=== PATIENT | female | born 1945 | race Caucasian/White ===

== ENCOUNTER 2020-12-16 12:15 | Emergency (ER) | payer MEDICARE, OTHER, SELFPAY ==
[2020-12-16] VITALS (12 sets, daily range): BP systolic 142–162; BP diastolic 61–74; PULSE 53–79; RESP 18–22; TEMP 36.7; O2SAT 94–96; BMI 28.3
--- NOTE | 2020-12-16 12:18 | DI.RAD.S_ITS ---
PROCEDURE: XR CHEST 1V INDICATIONS: chest pain TECHNIQUE: One view of the chest was acquired. COMPARISON: None. FINDINGS: Surgical changes and devices: None. Lungs and pleura: Increased pulmonary vascularity is present. No effusions or consolidations. Mediastinum: Mediastinal contours appear normal. Heart size is enlarged. Bones and chest wall: No suspicious bony lesions. Overlying soft tissues appear unremarkable. IMPRESSION: Cardiomegaly with increased vascularity suggestive of edema. Dictated by: Chante Lebron M.D. on 12/16/2020 at 12:44 Approved by: Chante Lebron M.D. on 12/16/2020 at 12:45
[2020-12-16 12:47] LABS: Alanine Aminotransferase 21 IU/L (<35); Albumin 4.1 g/dL (3.5-5.0); Albumin Globulin Ratio 1.1 (1.0-2.8); Alkaline Phosphatase 93 U/L (38-126); Aspartate Aminotransferase 38 IU/L (14-36); BUN Creatinine Ratio 24.3 (6-22); Bilirubin Total 1.1 mg/dL (0.2-1.3); Blood Urea Nitrogen 26 mg/dL (7-17); Calcium 9.2 mg/dL (8.4-10.2); Carbon Dioxide 29 mmol/L (22-32); Chloride 105 mmol/L (98-107); Creatine Kinase 90 U/L (30-135); Estimated Glomerular Filt Rate 49.9 mL/min (>60); Globulin 3.6 g/dL (1.7-4.1); Glucose 89 mg/dL (80-110); HEMOLYSIS 31 (0-50); Lipase 150 U/L (23-300); Magnesium 1.9 mg/dL (1.6-2.3); Potassium 4.6 mmol/L (3.4-5.1); Sodium 137 mmol/L (137-145); Total Protein 7.7 g/dL (6.3-8.2)
[2020-12-16 12:54] LABS: Add Manual Diff / Slide Review NO; Basophils Absolute Auto 0 /uL (0-100); Basophils Percent Auto 0.1 % (0-2); Eosinophils Absolute Auto 500 /uL (0-450); Eosinophils Percent Auto 8.5 % (2-4); Hematocrit 44.2 % (36-46); Hemoglobin 14.5 g/dL (12.0-16.0); Lymphocytes Absolute Auto 1700 /uL (1100-4500); Mean Corpuscular HGB Conc 32.8 % (30-36); Mean Corpuscular Hemoglobin 27.7 PG (26-34); Mean Corpuscular Volume 84.6 fL (80-100); Monocytes Absolute Auto 700 /uL (0-900); Monocytes Percent Auto 11.2 % (3-14); Neutrophils Absolute Auto 3000 /uL (1500-7000); Neutrophils Percent Auto 51.2 % (50-75); Platelet Count 195 X10^3/uL (150-400); Red Blood Cell Count 5.22 X10^6/uL (4.0-5.2); Red Cell Distribution Width 14.8 % (11.6-14.8); White Blood Cell Count 5.9 X10^3/uL (4.5-11.0)
[2020-12-16 13:04] LABS: NT-proBNP (BNP-Adult 18+) 63 pg/mL (<450); Troponin I < 0.012 ng/mL (0.01-0.034)
[2020-12-16 13:11] LABS: Prothrombin Time 11.7 SECONDS (10.1-12.7)
--- NOTE | 2020-12-16 13:13 | ED.CHESTPAIN ---
HPI - Chest Pain <KELSY Bains-BC - Last Filed: 12/16/20 16:55> General Chief Complaint: Chest Pain Stated Complaint: Chest/LT Arm Pain Time Seen by Provider: 12/16/20 12:47 Source: patient Mode of arrival: Family Vehicle Limitations: no limitations History of Present Illness HPI narrative: The patient is a 75-year-old female nonsmoker with history of prediabetes, prehypertension as well as sleep apnea who presents with her with a chief complaint of an episode of chest pain at 1:15 a.m.. She states that it does wake her from rest, it happened right after she put on her CPAP machine. She states that it was 2 to 3/10, substernal, radiating to her left arm. She denies any associated symptoms such as nausea vomiting shortness of breath or palpitations. She states she has had episodes of chest pain for years, which she has never told anybody and never had worked up. She denies any personal history of blood clots, though notes that she has a sister with a history of DVT. She also notes that she has a family history significant for cardiac disease. She does not take any daily medications other than 1 baby aspirin per day as well as some vitamins. She states that she called the on-call for her primary care provider who referred her to the emergency department today. She states she almost did not come in. She does note that her episode of chest pain lasted about 10-15 minutes. Related Data Home Medications Medication Instructions Recorded Confirmed No Known Home Medications 03/03/19 12/16/20 Allergies Allergy/AdvReac Type Severity Reaction Status Date / Time No Known Drug Allergies Allergy Verified 12/16/20 12:22 Review of Systems <MAMIE BainsBC - Last Filed: 12/16/20 16:55> Review of Systems Narrative: GENERAL: Denies chills, fatigue, malaise, fever, sweats. HEENT: Denies sinus pain, ear pain, sore throat, difficulty swallowing, dizziness. RESPIRATORY: Denies dyspnea, cough, wheezing, hemoptysis, sputum. CARDIOVASCULAR see HPI GASTROINTESTINAL: Denies nausea, vomiting, abdominal pain, diarrhea, constipation, melena. : Denies dysuria, frequency, incontinence, hematuria, urinary retention. MUSCULOSKELETAL: denies weakness, joint pain, or bony pain SKIN: Denies rash, skin lesions, or other NEUROLOGIC: Denies weakness, headache, numbness, change in speech, confusion, seizures, incoordination. PSYCHIATRIC: No concerning psychosocial issues. 12 point review of systems is negative except for those stated above Patient History <MARCUS Bains - Last Filed: 12/16/20 16:55> Medical History (Updated 12/16/20 @ 16:46 by MARCUS Bains) Benign essential HTN Chronic GERD Fatigue Hyperlipidemia Macular degeneration Obstructive sleep apnea of adult (~2000) Ocular migraine Osteoarthritis Sinusitis, chronic Spinal stenosis of lumbar region Social History (Updated 11/28/18 @ 15:34 by MARIO Krishna) marital status: details: to Yusuf household members: spouse lives independently: Yes caregiver/support person: No housing: house pets and animals: No Smoking Status: Never smoker Smoking Status: Never smoker alcohol intake frequency: holidays/special occasions only Substance Use Type: does not use Exam <MARCUS Bains - Last Filed: 12/16/20 16:55> Narrative Exam Narrative: GENERAL: This is a well-nourished, well-developed patient, in no acute distress HEAD: Atraumatic. Normocephalic. No temporal or scalp tenderness. EYES: Pupils equal round and reactive. Extraocular motions intact. No scleral icterus. No injection or drainage. ENT: Nose without bleeding, purulent drainage or septal hematoma. Throat without erythema, tonsillar hypertrophy or exudate. Uvula midline. Airway patent. NECK: Trachea midline. No JVD or lymphadenopathy. Supple, nontender, no meningeal signs. CARDIOVASCULAR: Regular rate and rhythm RESPIRATORY: Clear to auscultation. Breath sounds equal bilaterally. No wheezes, rales, or rhonchi. No cough. No increased respiratory effort. No accessory muscle use. GASTROINTESTINAL: Abdomen soft, non-tender, nondistended. No hepato-splenomegaly, or palpable masses. No guarding. EXTREMITIES: No clubbing, cyanosis, or edema. No joint tenderness, effusion, or edema noted. BACK: Nontender without deformity or crepitance. No flank tenderness. NEURO: AOx3. SKIN: No rash or erythema on visible skin Initial Vital Signs Initial Vital Signs: Vital Signs Temperature 98.1 F 12/16/20 12:19 Pulse Rate 60 12/16/20 12:19 Respiratory Rate 18 12/16/20 12:19 Blood Pressure 142/69 H 12/16/20 12:19 Pulse Oximetry 95 12/16/20 12:19 <Zayra Dominguez DO - Last Filed: 12/16/20 18:52> Initial Vital Signs Initial Vital Signs: Vital Signs Temperature 98.1 F 12/16/20 12:19 Pulse Rate 60 12/16/20 12:19 Respiratory Rate 18 12/16/20 12:19 Blood Pressure 142/69 H 12/16/20 12:19 Pulse Oximetry 95 12/16/20 12:19 Scores <MARCUS Bains - Last Filed: 12/16/20 16:55> GCS [place] coma scale eye opening: Spontaneous Isaac coma scale verbal response: Orientated Isaac coma scale motor response: Obey commands [place] coma scale total score: 15 Course <MARCUS Bains - Last Filed: 12/16/20 16:55> Orders Ordered: ED Orders 12/16/20 12:18 XR chest 1V Stat EKG-12 Lead Stat 12/16/20 12:29 Complete Blood Count AUTO DIFF Stat Comprehensive Metabolic Panel Stat D Dimer Stat Lipase Stat MAG [Magnesium] Stat NT-proBNP (BNP-Adult 18+) Stat Partial Thromboplastin Time Stat Prothrombin Time INR Stat Troponin & CK Cardiac Panel Stat 12/16/20 14:35 Troponin & CK Cardiac Panel Stat Discontinued Medications Aspirin (Aspirin 81 Mg Chew Tab) 324 mg PO NOW ONE Stop: 12/16/20 13:13 Last Admin: 12/16/20 13:44 Dose: 324 mg Documented by: HAFSA Vital Signs Vital signs: Vital Signs - 8 hr 12/16/20 12:19 12/16/20 12:24 12/16/20 12:36 Temperature 98.1 F 98.1 F Pulse Rate 60 60 55 L Respiratory Rate 18 18 19 Blood Pressure 142/69 H 142/65 H Pulse Oximetry 95 95 96 12/16/20 13:00 12/16/20 13:30 12/16/20 13:59 Temperature Pulse Rate 53 L 56 L 67 Respiratory Rate 20 20 22 Blood Pressure 142/61 H 146/65 H 155/74 H Pulse Oximetry 96 96 96 12/16/20 14:00 12/16/20 14:30 12/16/20 15:00 Temperature Pulse Rate 71 58 L 56 L Respiratory Rate 22 20 19 Blood Pressure 162/73 H 142/67 H 143/65 H Pulse Oximetry 96 96 96 12/16/20 15:30 12/16/20 16:00 12/16/20 16:30 Temperature Pulse Rate 79 58 L 64 Respiratory Rate 20 21 18 Blood Pressure 142/67 H 148/66 H 143/67 H Pulse Oximetry 94 95 94 <Zayra Dominguez, - Last Filed: 12/16/20 18:52> Orders Ordered: ED Orders 12/16/20 12:18 XR chest 1V Stat EKG-12 Lead Stat 12/16/20 12:29 Complete Blood Count AUTO DIFF Stat Comprehensive Metabolic Panel Stat D Dimer Stat Lipase Stat MAG [Magnesium] Stat NT-proBNP (BNP-Adult 18+) Stat Partial Thromboplastin Time Stat Prothrombin Time INR Stat Troponin & CK Cardiac Panel Stat 12/16/20 14:35 Troponin & CK Cardiac Panel Stat Discontinued Medications Aspirin (Aspirin 81 Mg Chew Tab) 324 mg PO NOW ONE Stop: 12/16/20 13:13 Last Admin: 12/16/20 13:44 Dose: 324 mg Documented by: HAFSA Vital Signs Vital signs: Vital Signs - 8 hr 12/16/20 12:19 12/16/20 12:24 12/16/20 12:36 Temperature 98.1 F 98.1 F Pulse Rate 60 60 55 L Respiratory Rate 18 18 19 Blood Pressure 142/69 H 142/65 H Pulse Oximetry 95 95 96 12/16/20 13:00 12/16/20 13:30 12/16/20 13:59 Temperature Pulse Rate 53 L 56 L 67 Respiratory Rate 20 20 22 Blood Pressure 142/61 H 146/65 H 155/74 H Pulse Oximetry 96 96 96 12/16/20 14:00 12/16/20 14:30 12/16/20 15:00 Temperature Pulse Rate 71 58 L 56 L Respiratory Rate 22 20 19 Blood Pressure 162/73 H 142/67 H 143/65 H Pulse Oximetry 96 96 96 12/16/20 15:30 12/16/20 16:00 12/16/20 16:30 Temperature Pulse Rate 79 58 L 64 Respiratory Rate 20 21 18 Blood Pressure 142/67 H 148/66 H 143/67 H Pulse Oximetry 94 95 94 MDM - Chest Pain <Zayra Bright, CORPORATE LEGAL MANAGER- - Last Filed: 12/16/20 16:55> Lab Data Attestation: I reviewed the patient's lab results. Result diagrams: 12/16/20 12:29 12/16/20 12:29 Labs: Lab Results 12/16/20 12/16/20 12/16/20 Range/Units 12:29 12:29 12:29 WBC 5.9 (4.5-11.0) X10^3/uL RBC 5.22 H (4.0-5.2) X10^6/uL Hgb 14.5 (12.0-16.0) g/dL Hct 44.2 (36-46) % MCV 84.6 (80-100) fL MCH 27.7 (26-34) PG MCHC 32.8 (30-36) % RDW 14.8 (11.6-14.8) % Plt Count 195 (150-400) X10^3/uL Neut % (Auto) 51.2 (50-75) % Lymph % (Auto) 29.0 (25-40) % [place] % (Auto) 11.2 (3-14) % Eos % (Auto) 8.5 H (2-4) % Baso % (Auto) 0.1 (0-2) % Neut # (Auto) 3000 (9900-4486) /uL Lymph # (Auto) 1700 (6645-8518) /uL [place] # (Auto) 700 (0-900) /uL Eos # (Auto) 500 H (0-450) /uL Baso # (Auto) 0 (0-100) /uL PT 11.7 (10.1-12.7) SECONDS INR 1.0 (0.9-1.3) APTT 35 (26.4-36.2) SECONDS D-Dimer (<230) ng/mL Sodium 137 (137-145) mmol/L Potassium 4.6 (3.4-5.1) mmol/L Chloride 105 (98-107) mmol/L Carbon Dioxide 29 (22-32) mmol/L BUN 26 H (7-17) mg/dL Creatinine 1.07 H (0.52-1.04) mg/dL Estimated GFR 49.9 L (>60) mL/min BUN/Creatinine Ratio 24.3 H (6-22) Glucose 89 (80-110) mg/dL Calcium 9.2 (8.4-10.2) mg/dL Magnesium 1.9 (1.6-2.3) mg/dL Total Bilirubin 1.1 (0.2-1.3) mg/dL AST 38 H (14-36) IU/L ALT 21 (<35) IU/L Alkaline Phosphatase 93 (38-126) U/L Total Creatine Kinase 90 (30-135) U/L CK-MB (CK-2) TNP CK-MB (CK-2) Rel Index TNP Troponin I < 0.012 (0.01-0.034) ng/mL NT-Pro-B Natriuret Pep 63 (<450) pg/mL Total Protein 7.7 (6.3-8.2) g/dL Albumin 4.1 (3.5-5.0) g/dL Globulin 3.6 (1.7-4.1) g/dL Albumin/Globulin Ratio 1.1 (1.0-2.8) Lipase 150 (23-300) U/L 12/16/20 12/16/20 Range/Units 12:29 14:35 WBC (4.5-11.0) X10^3/uL RBC (4.0-5.2) X10^6/uL Hgb (12.0-16.0) g/dL Hct (36-46) % MCV (80-100) fL MCH (26-34) PG MCHC (30-36) % RDW (11.6-14.8) % Plt Count (150-400) X10^3/uL Neut % (Auto) (50-75) % Lymph % (Auto) (25-40) % [place] % (Auto) (3-14) % Eos % (Auto) (2-4) % Baso % (Auto) (0-2) % Neut # (Auto) (7900-4950) /uL Lymph # (Auto) (2694-6089) /uL [place] # (Auto) (0-900) /uL Eos # (Auto) (0-450) /uL Baso # (Auto) (0-100) /uL PT (10.1-12.7) SECONDS INR (0.9-1.3) APTT (26.4-36.2) SECONDS D-Dimer 329 H (<230) ng/mL Sodium (137-145) mmol/L Potassium (3.4-5.1) mmol/L Chloride (98-107) mmol/L Carbon Dioxide (22-32) mmol/L BUN (7-17) mg/dL Creatinine (0.52-1.04) mg/dL Estimated GFR (>60) mL/min BUN/Creatinine Ratio (6-22) Glucose (80-110) mg/dL Calcium (8.4-10.2) mg/dL Magnesium (1.6-2.3) mg/dL Total Bilirubin (0.2-1.3) mg/dL AST (14-36) IU/L ALT (<35) IU/L Alkaline Phosphatase (38-126) U/L Total Creatine Kinase 90 (30-135) U/L CK-MB (CK-2) TNP CK-MB (CK-2) Rel Index TNP Troponin I < 0.012 (0.01-0.034) ng/mL NT-Pro-B Natriuret Pep (<450) pg/mL Total Protein (6.3-8.2) g/dL Albumin (3.5-5.0) g/dL Globulin (1.7-4.1) g/dL Albumin/Globulin Ratio (1.0-2.8) Lipase (23-300) U/L Imaging Data Chest x-ray: Radiologist's Impression: [address] [place] [id number] ReportSigned Patient: Lanette Minaya#: [id number]: [id number]:[id number]/Sex: 75 / FDate of Service: 12/16/20Loc: EDAccession Number: [id number] Procedure: XR chest 1V Ordering Provider: Zayra Dominguez D.O. PROCEDURE: XR CHEST 1V INDICATIONS: chest pain TECHNIQUE: One view of the chest was acquired. COMPARISON: None. FINDINGS: Surgical changes and devices: None. Lungs and pleura: Increased pulmonary vascularity is present. No effusions or consolidations. Mediastinum: Mediastinal contours appear normal. Heart size is enlarged. Bones and chest wall: No suspicious bony lesions. Overlying soft tissues appear unremarkable. IMPRESSION: Cardiomegaly with increased vascularity suggestive of edema. Dictated by: Chante Lebron M.D. on 12/16/2020 at 12:44 Approved by: Chante Lebron M.D. on 12/16/2020 at 12:45 ECG Data Attestation: I personally reviewed and interpreted this ECG as follows: Interpretation: Sinus rhythm. Ventricular rate 60. P.r. interval 182. QRS 90. viewed by Dr Dominguez MDM Narrative Medical decision making narrative: The patient is a 75-year-old female who presents 12 hours after an episode of chest pain at 1:00 a.m.. She had substernal chest pain radiating to her left arm for approximately 10-15 minutes. She has had no pain or complaints throughout her emergency department stay. EKG has no acute findings, initial troponin is negative, repeat 2 hour troponin is also negative. D-dimer is negative when corrected for age, BNP within normal limits, chest x-ray is no acute findings. At this point acute cardiac event, pulmonary embolism and acute etiology is ruled out. I spoke with Dr. Yang, on-call for the patient's primary care provider who states that she can follow-up with her primary care provider for a treadmill stress test on Friday. Offered to discussed the possibility of transfer for inpatient stress, but Dr Avelar states okay to follow up with primary care provider. Additionally reassuring that the patient does not take any daily medications, and denies any history of active risk factors other than family history. Discussed at length 3 come back to the emergency department for any acute concerns, follow-up with primary care provider on Friday. Patient has been have no questions or concerns upon discharge states understanding of return precautions as well as follow-up care. <Zayra Dominguez, DO - Last Filed: 12/16/20 18:52> Lab Data Labs: Lab Results 12/16/20 12/16/20 12/16/20 Range/Units 12:29 12:29 12:29 WBC 5.9 (4.5-11.0) X10^3/uL RBC 5.22 H (4.0-5.2) X10^6/uL Hgb 14.5 (12.0-16.0) g/dL Hct 44.2 (36-46) % MCV 84.6 (80-100) fL MCH 27.7 (26-34) PG MCHC 32.8 (30-36) % RDW 14.8 (11.6-14.8) % Plt Count 195 (150-400) X10^3/uL Neut % (Auto) 51.2 (50-75) % Lymph % (Auto) 29.0 (25-40) % [place] % (Auto) 11.2 (3-14) % Eos % (Auto) 8.5 H (2-4) % Baso % (Auto) 0.1 (0-2) % Neut # (Auto) 3000 (4316-6898) /uL Lymph # (Auto) 1700 (8701-3112) /uL [place] # (Auto) 700 (0-900) /uL Eos # (Auto) 500 H (0-450) /uL Baso # (Auto) 0 (0-100) /uL PT 11.7 (10.1-12.7) SECONDS INR 1.0 (0.9-1.3) APTT 35 (26.4-36.2) SECONDS D-Dimer (<230) ng/mL Sodium 137 (137-145) mmol/L Potassium 4.6 (3.4-5.1) mmol/L Chloride 105 (98-107) mmol/L Carbon Dioxide 29 (22-32) mmol/L BUN 26 H (7-17) mg/dL Creatinine 1.07 H (0.52-1.04) mg/dL Estimated GFR 49.9 L (>60) mL/min BUN/Creatinine Ratio 24.3 H (6-22) Glucose 89 (80-110) mg/dL Calcium 9.2 (8.4-10.2) mg/dL Magnesium 1.9 (1.6-2.3) mg/dL Total Bilirubin 1.1 (0.2-1.3) mg/dL AST 38 H (14-36) IU/L ALT 21 (<35) IU/L Alkaline Phosphatase 93 (38-126) U/L Total Creatine Kinase 90 (30-135) U/L CK-MB (CK-2) TNP CK-MB (CK-2) Rel Index TNP Troponin I < 0.012 (0.01-0.034) ng/mL NT-Pro-B Natriuret Pep 63 (<450) pg/mL Total Protein 7.7 (6.3-8.2) g/dL Albumin 4.1 (3.5-5.0) g/dL Globulin 3.6 (1.7-4.1) g/dL Albumin/Globulin Ratio 1.1 (1.0-2.8) Lipase 150 (23-300) U/L 12/16/20 12/16/20 Range/Units 12:29 14:35 WBC (4.5-11.0) X10^3/uL RBC (4.0-5.2) X10^6/uL Hgb (12.0-16.0) g/dL Hct (36-46) % MCV (80-100) fL MCH (26-34) PG MCHC (30-36) % RDW (11.6-14.8) % Plt Count (150-400) X10^3/uL Neut % (Auto) (50-75) % Lymph % (Auto) (25-40) % [place] % (Auto) (3-14) % Eos % (Auto) (2-4) % Baso % (Auto) (0-2) % Neut # (Auto) (4158-4578) /uL Lymph # (Auto) (2319-8373) /uL [place] # (Auto) (0-900) /uL Eos # (Auto) (0-450) /uL Baso # (Auto) (0-100) /uL PT (10.1-12.7) SECONDS INR (0.9-1.3) APTT (26.4-36.2) SECONDS D-Dimer 329 H (<230) ng/mL Sodium (137-145) mmol/L Potassium (3.4-5.1) mmol/L Chloride (98-107) mmol/L Carbon Dioxide (22-32) mmol/L BUN (7-17) mg/dL Creatinine (0.52-1.04) mg/dL Estimated GFR (>60) mL/min BUN/Creatinine Ratio (6-22) Glucose (80-110) mg/dL Calcium (8.4-10.2) mg/dL Magnesium (1.6-2.3) mg/dL Total Bilirubin (0.2-1.3) mg/dL AST (14-36) IU/L ALT (<35) IU/L Alkaline Phosphatase (38-126) U/L Total Creatine Kinase 90 (30-135) U/L CK-MB (CK-2) TNP CK-MB (CK-2) Rel Index TNP Troponin I < 0.012 (0.01-0.034) ng/mL NT-Pro-B Natriuret Pep (<450) pg/mL Total Protein (6.3-8.2) g/dL Albumin (3.5-5.0) g/dL Globulin (1.7-4.1) g/dL Albumin/Globulin Ratio (1.0-2.8) Lipase (23-300) U/L ECG Data Attestation: I personally reviewed and interpreted this ECG as follows: Prior ECG tracings: not available for review Interpretation: Sinus rhythm, rate of 60 IA 182 QRS of 90 and QTC 414. No acute ST elevation appreciated. No depression appreciated. No prior for comparison. Discharge Plan Departure Patient Disposition: Home Clinical Impression: Chest pain Qualifiers: Chest pain type: unspecified Qualified Code(s): R07.9 - Chest pain, unspecified Instructions: DI for Atypical Chest Pain, DI for Chest Pain Activity Restrictions/Additional Instructions: Thank you for trusting us with your care today. As discussed, please follow-up with primary care provider on Friday. I spoke with Dr. Avelar, on-call for your primary care provider. Please come back to the emergency department for any acute concerns. This includes any concern of heart attack, chest pain shortness of breath, concern of stroke etcetera Prescriptions: No Action No Known Home Medications RF: 0 Referrals: Antonio Dueñas MD [Primary Care Provider] - <Zayra Dominguez DO - Last Filed: 12/16/20 18:52> Cosign ED Attending Costrishature Attestation: I was immediately available in the department for consultation. Documentation has been reviewed.
[2020-12-16 13:14] LABS: PTT Partial Thromboplastin Tim 35 SECONDS (26.4-36.2)
[2020-12-16 13:29] LABS: D Dimer 329 ng/mL (<230)
[2020-12-16] MEDS: ASPIRIN 81 MG CHEW TAB 324 MG PO (13:44)
[2020-12-16 15:00] LABS: Creatine Kinase 90 U/L (30-135)
[2020-12-16 15:13] LABS: Troponin I < 0.012 ng/mL (0.01-0.034)
== END 2020-12-16 16:57 | disposition home or self-care (01) ==
PROVIDERS: Emergency Medicine; Emergency Provider Nurse Practitioner Family; PCP Family Medicine; Referring Provider Family Medicine
DX: R07.9 Chest pain, unspecified (principal)
CPT/HCPCS: 36415; 71045; 80053; 82550; 83690; 83735; 83880; 84484; 85025; 85379; 85610; 85730; 93005; 99284

== ENCOUNTER → 2021-06-26 15:31 | Outpatient (CLI) | payer MEDICARE, OTHER, SELFPAY ==
--- NOTE | 2021-06-26 | DI.RAD.S_ITS ---
PROCEDURE: XR CHEST 2V INDICATIONS: Cough TECHNIQUE: 2 views of the chest were acquired. COMPARISON: [facility], CR, XR CHEST 1V, 12/16/2020, 12:33. FINDINGS: Surgical changes and devices: None. Lungs and pleura: Lungs are clear. No pleural effusions or pneumothorax. Mediastinum: Mediastinal contours are normal. Heart size is normal. Bones and chest wall: No suspicious bony abnormalities. Soft tissues appear unremarkable. IMPRESSION: No acute cardiopulmonary abnormality. Dictated by: Mike Mustafa M.D. on 06/26/2021 at 16:12 Approved by: Mike Mustafa M.D. on 06/26/2021 at 16:14
== END ==
PROVIDERS: PCP Family Medicine; Referring Provider Family Medicine; Visit Provider Family Medicine
DX: R05 Cough (principal)
CPT/HCPCS: 71046

== ENCOUNTER → 2021-11-29 09:02 | Outpatient (CLI) | payer MEDICARE, OTHER, SELFPAY ==
--- NOTE | 2021-11-29 | DI.US.S_ITS ---
PROCEDURE: US CAROTID DOPPLER BI INDICATIONS: MILD COGNITIVE IMPAIRMENT TECHNIQUE: Color and pulse Doppler interrogation was performed of both carotid systems, with image documentation and velocity measurements. COMPARISON: None. FINDINGS: Stenosis calculations are based on SRU (Society of Radiologists in Ultrasound) criteria. Right side: Brachial blood pressure: 134/71 mm Hg. Common carotid artery peak systolic velocity: 91 cm/sec. Internal carotid artery peak systolic velocity: 90 cm/sec. Internal carotid artery end diastolic velocity: 33 cm/sec. External carotid artery peak systolic velocity: 132 cm/sec. ICA/CCA peak systolic ratio: 1.0. Chavez scale imaging description: Calcified plaque Percent internal carotid artery stenosis: Less than 50%. Vertebral artery: Flow direction is antegrade. Left side: Brachial blood pressure: 142/73 mm Hg. Common carotid artery peak systolic velocity: 136 cm/sec. Internal carotid artery peak systolic velocity: 153 cm/sec. Internal carotid artery end diastolic velocity: 42 cm/sec. External carotid artery peak systolic velocity: 181 cm/sec. ICA/CCA peak systolic ratio: 1.1. Chavez scale imaging description: Calcified plaque Percent internal carotid artery stenosis: 50-69%. Vertebral artery: Flow direction is antegrade. IMPRESSION: 1. Moderate, 50-69% stenosis of the origin left internal carotid artery. 2. Mild, less than 50% stenosis of the origin of the right internal carotid artery. Dictated by: Coyn Barcenas MD, PhD on 11/29/2021 at 10:23 Approved by: Cony Barcenas MD, PhD on 11/29/2021 at 10:27
--- NOTE | 2021-11-29 09:34 | DI.CT.S_ITS ---
PROCEDURE: CT HEAD/BRAIN WO CON INDICATIONS: Mild cognitive impairment, so stated TECHNIQUE: Noncontrast 4.5 mm thick angled axial sections acquired from the foramen magnum to the vertex, with coronal and sagittal reformats. For radiation dose reduction, the following was used: automated exposure control, adjustment of mA and/or kV according to patient size. COMPARISON: None. FINDINGS: Image quality: Excellent. CSF spaces: Basal cisterns are patent. No extra-axial fluid collections. The ventricles are symmetric in size and shape. Brain: No intracranial bleeds or masses. There is cerebral volume loss for age, with resultant ventricular and sulcal prominence. There are periventricular and deep white matter chronic small vessel ischemic changes. There is intracranial internal carotid artery atherosclerosis. Skull and face: Calvarium and visualized facial bones appear intact, without suspicious lesions. Sinuses: Visualized sinuses and mastoids are clear. IMPRESSION: No acute intracranial disease process. Dictated by: Cony Barcenas MD, PhD on 11/29/2021 at 10:32 Approved by: Cony Barcenas MD, PhD on 11/29/2021 at 10:33
== END ==
PROVIDERS: PCP Family Medicine; Referring Provider Family Medicine; Visit Provider Family Medicine
DX: G31.84 Mild cognitive impairment of uncertain or unknown etiology; I65.23 Occlusion and stenosis of bilateral carotid arteries
CPT/HCPCS: 70450; 93880

== ENCOUNTER 2023-08-31 19:26 | Inpatient (IN) | payer MEDICARE, OTHER, SELFPAY ==
[2023-08-31] VITALS (7 sets, daily range): BP systolic 140–183; BP diastolic 67–78; PULSE 53–63; RESP 16–30; TEMP 36.6; O2SAT 88–93; BMI 27.4
--- NOTE | 2023-08-31 | DI.RAD.S_ITS ---
PROCEDURE: XR PELVIS 1-2V INDICATIONS: Fall, surgeon requesting judet views. TECHNIQUE: 2 view(s) of the pelvis acquired. COMPARISON: [facility], KATELYN, XR HIP W PEL IF DONE LT 2V, 08/31/2023, 19:57. [facility], KATELYN, PELVIS W UNILATERAL HIP RIGHT, 08/10/2008, 15:49. FINDINGS: Bones: Suspected disruption of the trabeculae at the medial aspect the left hip. No dislocations. No suspicious bony lesions. Soft tissues: Visualized bowel gas pattern is normal. No suspicious soft tissue calcifications. IMPRESSION: Suspected nondisplaced fracture at the left hip is less conspicuous. If clinically indicated CT bony pelvis could be considered for further evaluation Dictated by: Mike Mustafa M.D. on 08/31/2023 at 21:24 Approved by: Mike Mustafa M.D. on 08/31/2023 at 21:26
--- NOTE | 2023-08-31 19:37 | DI.RAD.S_ITS ---
PROCEDURE: XR HIP W PEL IF DONE LT 2V INDICATIONS: Pain after fall TECHNIQUE: AP pelvis with lateral view(s) of the left hip(s). COMPARISON: [facility], , PELVIS WITH BILATERAL HIPS, 03/29/2013, 12:28. FINDINGS: Bones: Foreshortening of the left femoral neck with cortical disruption. No dislocations. Pelvic ring appears intact. No suspicious bony lesions. Soft tissues: The visualized bowel gas pattern is normal. No suspicious soft tissue calcifications. IMPRESSION: Nondisplaced left hip fracture. Dictated by: Mike Mustafa M.D. on 08/31/2023 at 20:34 Approved by: Mike Mustafa M.D. on 08/31/2023 at 20:36
--- NOTE | 2023-08-31 19:50 | PC.NURSE ---
pt c/o pain only with movement of the left leg refuses any pain medication
--- NOTE | 2023-08-31 19:55 | DI.RAD.S_ITS ---
PROCEDURE: XR RIBS RT MIN 3V W CXR 1V INDICATIONS: R anterior lower rib pain after fall TECHNIQUE: 2 views of the right ribs were acquired, along with a single view chest. COMPARISON: [facility], , XR CHEST 2V, 06/26/2021, 15:35. FINDINGS: Surgical changes and devices: None. Bones and chest wall: No fractures or dislocations. No suspicious bony lesions. Overlying soft tissues appear unremarkable. Lungs and pleura: No pleural effusions or pneumothorax. Lungs appear clear. Mediastinum: Mediastinal contours appear normal. Heart size is normal. IMPRESSION: No displaced rib fracture or pneumothorax. Dictated by: Mike Mustafa M.D. on 08/31/2023 at 20:36 Approved by: Mike Mustafa M.D. on 08/31/2023 at 20:38
--- NOTE | 2023-08-31 19:55 | ED.GENADULT ---
HPI - General Adult General Chief complaint: Trauma Stated complaint: Hypothermia/Hip pain Time Seen by Provider: 08/31/23 19:37 Source: patient and EMS Mode of arrival: EMS Limitations: no limitations History of Present Illness HPI narrative: Patient is a 77-year-old female who was out hiking. She lost her footing on a wet rock that had some loss. She fell landing on her left hip. She reports no other injuries from the event. Did not hit her head. No upper extremity discomfort. She has not been able to walk since the event. Related Data Home Medications Medication Instructions Recorded Confirmed aspirin 81 mg chewable tablet 81 mg PO DAILY 05/10/21 08/31/23 vit cap PO 05/10/21 05/10/21 C,E,zinc,He-aorep-4-lutein-zeaxanthin 250 mg-2.5 mg-0.5 mg capsule atorvastatin 40 mg tablet 40 mg PO BEDTIME 08/31/23 08/31/23 latanoprost 0.005 % eye drops 1 drp EYE-BOTH BEDTIME 08/31/23 08/31/23 Allergies Allergy/AdvReac Type Severity Reaction Status Date / Time No Known Drug Allergies Allergy Verified 08/31/23 21:40 Review of Systems Constitutional Constitutional: Reports system reviewed and no additional complaints, except as documented Cardiovascular Cardiovascular: Reports system reviewed and no additional complaints, except as documented Respiratory Respiratory: Reports system reviewed and no additional complaints, except as documented Gastrointestinal Gastrointestinal: Reports system reviewed and no additional complaints, except as documented Integumentary/Breasts Skin/Breast: Reports system reviewed and no additional complaints, except as documented Neurologic Neurologic: Reports system reviewed and no additional complaints, except as documented Hematologic/Lymphatic On Anticoagulants: No Patient History Medical History Fatigue Ocular migraine Sinusitis, chronic Macular degeneration Osteoarthritis Benign essential HTN Hyperlipidemia Spinal stenosis of lumbar region Chronic GERD Obstructive sleep apnea of adult (~2000) Social History marital status: details: to Yusuf household members: spouse lives independently: Yes caregiver/support person: No housing: house pets and animals: No Smoking Status: Never smoker Smoking Status: Never smoker alcohol intake frequency: holidays/special occasions only Substance Use Type: does not use Exam Initial Vital Signs Initial Vital Signs: Vital Signs Blood Pressure 183/78 H 08/31/23 19:45 Const General: cooperative, comfortable and No ill appearing HENMT Head: normal to inspection and normocephalic Chest Other: Discomfort to palpation right anterior lower ribs. Resp Effort & Inspection: normal respiratory effort Cardio Rate: regular rate GI Other: No abdominal tenderness. No CVA tenderness. Back/Spine/Pelvis Cervical Spine: No cervical spinal tenderness Skin General: no rashes or lesions noted Neuro General: patient alert, patient awake and moves all extremities Extrem Other: Discomfort with palpation of the left hemipelvis Course Orders Ordered: ED Orders 08/31/23 19:37 XR hip w pel if done LT 2V Stat 08/31/23 19:55 XR ribs RT min 3V w CXR1V Stat 08/31/23 20:35 Consult to Orthopedic Surgery Stat 08/31/23 20:45 Basic Metabolic Panel Stat Complete Blood Count AUTO DIFF Stat Acetaminophen (Acetaminophen 325 Mg Tablet) 650 mg PO Q6H PRN PRN Reason: Fever/Mild Pain (1-3) Bisacodyl (Bisacodyl 10 Mg Supp) 10 mg MT DAILY PRN PRN Reason: Constipation Dextrose/Sodium Chloride (Dextrose 5%-0.9% Ns) 1,000 mls @ 75 mls/hr IV CONT RYAN Naloxone HCl (Naloxone 0.4 Mg/Ml Vial) 0.2 mg IV Q2MIN PRN PRN Reason: Opiate Reversal Ondansetron HCl (Ondansetron 4 Mg Odt) 4 mg PO Q8HR PRN PRN Reason: Nausea And Vomiting Ondansetron HCl (Ondansetron 4 Mg/2 Ml Inj) 4 mg IV Q8HR PRN PRN Reason: Nausea And Vomiting Oxycodone HCl (Oxycodone Ir 10 Mg Tablet) 10 mg PO Q3H PRN PRN Reason: Pain, Severe (7-10) Oxycodone HCl (Oxycodone Ir 5 Mg Tablet) 5 mg PO Q3H PRN PRN Reason: Pain, Moderate (4-6) Discontinued Medications Morphine Sulfate (Morphine 4 Mg/Ml Inj) 4 mg IV NOW ONE Stop: 08/31/23 21:55 Last Admin: 08/31/23 21:57 Dose: 4 mg Documented By: MUSA Ondansetron HCl (Ondansetron 4 Mg/2 Ml Inj) 4 mg IV NOW ONE Stop: 08/31/23 21:55 Last Admin: 08/31/23 21:57 Dose: 4 mg Documented By: MUSA Vital Signs Vital signs: Vital Signs - 8 hr 08/31/23 19:45 08/31/23 19:47 08/31/23 19:50 Temperature 97.9 F Pulse Rate 58 L 57 L Respiratory Rate 30 H 18 Blood Pressure 183/78 H 183/78 H Pulse Oximetry 92 93 Oxygen Delivery Method Room Air 08/31/23 20:29 08/31/23 20:29 08/31/23 20:30 Temperature Pulse Rate 53 L Respiratory Rate 27 H Blood Pressure 140/67 161/72 H Pulse Oximetry 90 L Oxygen Delivery Method 08/31/23 20:30 Temperature Pulse Rate 56 L Respiratory Rate 22 Blood Pressure Pulse Oximetry 91 Oxygen Delivery Method Medical Decision Making Lab Data Lab results reviewed: Yes I reviewed the patient's lab results. 08/31/23 20:45 08/31/23 20:45 Labs: Lab Results 08/31/23 Range/Units 20:45 WBC 11.2 H (4.5-11.0) X10^3/uL RBC 5.24 H (4.0-5.2) X10^6/uL Hgb 14.2 (12.0-16.0) g/dL Hct 43.5 (36-46) % MCV 82.9 (80-100) fL MCH 27.1 (26-34) PG MCHC 32.7 (30-36) % RDW 16.1 H (11.6-14.8) % Plt Count 149 L (150-400) X10^3/uL Neut % (Auto) 88.3 H (50-75) % Lymph % (Auto) 7.1 L (25-40) % [place] % (Auto) 4.2 (3-14) % Eos % (Auto) 0.3 L (2-4) % Baso % (Auto) 0.1 (0-2) % Neut # (Auto) 9900 H (9056-1376) /uL Lymph # (Auto) 800 L (1171-1995) /uL [place] # (Auto) 500 (0-900) /uL Eos # (Auto) 0 (0-450) /uL Baso # (Auto) 0 (0-100) /uL Sodium 138 (137-145) mmol/L Potassium 3.9 (3.4-5.1) mmol/L Chloride 103 (98-107) mmol/L Carbon Dioxide 26 (22-32) mmol/L BUN 26 H (7-17) mg/dL Creatinine 0.86 (0.52-1.04) mg/dL Estimated GFR > 60 (>60) mL/min BUN/Creatinine Ratio 30.2 H (6-22) Glucose 137 H (80-110) mg/dL Calcium 9.4 (8.4-10.2) mg/dL Imaging Data Extremity x-ray #1: Radiologist's Impression: PROCEDURE: XR PELVIS 1-2V INDICATIONS: Fall, surgeon requesting judet views. TECHNIQUE: 2 view(s) of the pelvis acquired. COMPARISON: [facility], XR HIP W PEL IF DONE LT 2V, 08/31/2023, 19:57. [facility], PELVIS W UNILATERAL HIP RIGHT, 08/10/2008, 15:49. FINDINGS: Bones: Suspected disruption of the trabeculae at the medial aspect the left hip. No dislocations. No suspicious bony lesions. Soft tissues: Visualized bowel gas pattern is normal. No suspicious soft tissue calcifications. IMPRESSION: Suspected nondisplaced fracture at the left hip is less conspicuous. If clinically indicated CT bony pelvis could be considered for further evaluation Extremity x-ray #2: Radiologist's Impression: PROCEDURE: XR HIP W PEL IF DONE LT 2V INDICATIONS: Pain after fall TECHNIQUE: AP pelvis with lateral view(s) of the left hip(s). COMPARISON: [facility], , PELVIS WITH BILATERAL HIPS, 03/29/2013, 12:28. FINDINGS: Bones: Foreshortening of the left femoral neck with cortical disruption. No dislocations. Pelvic ring appears intact. No suspicious bony lesions. Soft tissues: The visualized bowel gas pattern is normal. No suspicious soft tissue calcifications. IMPRESSION: Nondisplaced left hip fracture. rib x-ray: Radiologist's Impression: PROCEDURE: XR RIBS RT MIN 3V W CXR 1V INDICATIONS: R anterior lower rib pain after fall TECHNIQUE: 2 views of the right ribs were acquired, along with a single view chest. COMPARISON: [facility], XR CHEST 2V, 06/26/2021, 15:35. FINDINGS: Surgical changes and devices: None. Bones and chest wall: No fractures or dislocations. No suspicious bony lesions. Overlying soft tissues appear unremarkable. Lungs and pleura: No pleural effusions or pneumothorax. Lungs appear clear. Mediastinum: Mediastinal contours appear normal. Heart size is normal. IMPRESSION: No displaced rib fracture or pneumothorax. MDM Narrative Medical decision making narrative: This was a mechanical fall. Has a left femoral neck fracture. Had some discomfort to the right anterior lower ribs but she states she did not land on this side. There were no rib fractures noted on x-ray. No shortness of breath. I did discuss the case with Dr. Walker orthopedist on-call who will evaluate the patient after admission. I then discussed the case with Dr. Kohler hospitalist on-call who will admit for further evaluation and treatment. Discussed the injury with the patient of the need for admission. She expressed understanding and agreement with plan. Discharge Plan Departure Patient Disposition: Admitted As Inpatient Clinical Impression: Closed fracture of neck of left femur Admit Date/Time: 08/31/23 21:03 Admit Provider: Александр Hurd
[2023-08-31 21:05] LABS: Add Manual Diff / Slide Review NO; Basophils Absolute Auto 0 /uL (0-100); Basophils Percent Auto 0.1 % (0-2); Eosinophils Absolute Auto 0 /uL (0-450); Eosinophils Percent Auto 0.3 % (2-4); Hematocrit 43.5 % (36-46); Hemoglobin 14.2 g/dL (12.0-16.0); Lymphocytes Absolute Auto 800 /uL (1100-4500); Lymphocytes Percent Auto 7.1 % (25-40); Mean Corpuscular HGB Conc 32.7 % (30-36); Mean Corpuscular Hemoglobin 27.1 PG (26-34); Mean Corpuscular Volume 82.9 fL (80-100); Monocytes Absolute Auto 500 /uL (0-900); Monocytes Percent Auto 4.2 % (3-14); Neutrophils Absolute Auto 9900 /uL (1500-7000); Neutrophils Percent Auto 88.3 % (50-75); Platelet Count 149 X10^3/uL (150-400); Red Blood Cell Count 5.24 X10^6/uL (4.0-5.2); Red Cell Distribution Width 16.1 % (11.6-14.8); White Blood Cell Count 11.2 X10^3/uL (4.5-11.0)
[2023-08-31 21:07] LABS: BUN Creatinine Ratio 30.2 (6-22); Blood Urea Nitrogen 26 mg/dL (7-17); Calcium 9.4 mg/dL (8.4-10.2); Carbon Dioxide 26 mmol/L (22-32); Chloride 103 mmol/L (98-107); Estimated Glomerular Filt Rate > 60 mL/min (>60); Glucose 137 mg/dL (80-110); HEMOLYSIS 20 (0-50); Potassium 3.9 mmol/L (3.4-5.1); Sodium 138 mmol/L (137-145)
[2023-08-31] MEDS: ONDANSETRON 4 MG/2 ML INJ IV (21:57)
[2023-08-31] MEDS: MORPHINE 4 MG/ML INJ IV (21:57)
[2023-08-31] MEDS: DEXTROSE 5%-0.9% NS 1,000 ML 75 ML IV (22:45)
[2023-09-01] VITALS (17 sets, daily range): BP systolic 104–160; BP diastolic 47–76; PULSE 50–81; RESP 14–22; TEMP 35.8–37.4; O2SAT 88–98; BMI 27.4
--- NOTE | 2023-09-01 | DI.RAD.S_ITS ---
PROCEDURE: XR HIP W PEL IF DONE LT 2V INDICATIONS: LEFT HIP HEMIARTHROPLASTY TECHNIQUE: 14 intraoperative views of the hip were acquired. COMPARISON: [facility], [place], XR HIP W PEL IF DONE LT 2V, 08/31/2023, 19:57. FINDINGS: Left hip arthroplasty projects in the expected location. IMPRESSION: Left hip arthroplasty projects in the expected location. Intraoperative guidance provided. Dictated by: Mike Mustafa M.D. on 09/01/2023 at 20:55 Approved by: Mike Mustafa M.D. on 09/01/2023 at 20:56
--- NOTE | 2023-09-01 | DI.RAD.S_ITS ---
PROCEDURE: XR HIP W PEL IF DONE LT 2V INDICATIONS: POST OP TECHNIQUE: AP pelvis and lateral view of the left hip acquired. COMPARISON: [facility], [place], XR HIP W PEL IF DONE LT 2V, 09/01/2023, 19:00. [facility], CR, XR HIP W PEL IF DONE LT 2V, 08/31/2023, 19:57. FINDINGS: Bones: Patient is status post left hip arthroplasty, with hardware components in expected positions. The hip joint appears congruent. The visualized bony structures appear intact. Soft tissues: Overlying postoperative changes are noted. No suspicious soft tissue densities. IMPRESSION: Expected post-operative appearance of a hip arthroplasty. Dictated by: Mike Mustafa M.D. on 09/01/2023 at 22:31 Approved by: Mike Mustafa M.D. on 09/01/2023 at 22:32
--- NOTE | 2023-09-01 06:32 | PC.NURSE ---
This RN requested electronic transaction implementer Dr. Vasquez to place orders for patient's home medications @[id number]. Dr. Vasquez stated the only medication she will get from that list is eyedrops. Rest is nonessential when NPO prior to surgery. This RN explained pt takes 81 mg aspirin daily, which can be started for 09/02 and 40mg atorvastatin at bedtime, which can be started for tonight 09/[address] vasquez stated that's for the day doc. Updated curly Glover RN that these medications will still need to be ordered for patient.
--- NOTE | 2023-09-01 06:33 | PM.HP.1 ---
History of Present Illness History of Present Illness Date Patient Seen: 08/31/23 Chief complaint: Hypothermia/Hip pain Narrative: 77 y/o physically active, sustained accidental GLF on a trail and fractured left femoral neck. She slipped on a stone. ED attending consulted orthopedic surgeon Dr Walker who will likely operate on . Admitted to medicine, npo. Complains on Lt hip pain, exacerbated with movement. [facility] Medical History (Updated 09/01/23 @ 06:45 by Александр Kohler MD) Fatigue Ocular migraine Sinusitis, chronic Macular degeneration Osteoarthritis Benign essential HTN Hyperlipidemia Spinal stenosis of lumbar region Chronic GERD Obstructive sleep apnea of adult (~2000) Social History marital status: details: to Yusuf household members: spouse lives independently: Yes caregiver/support person: No housing: house pets and animals: No Smoking Status: Never smoker Meds Home Medications and Allergies Home Medications Medication Instructions Recorded Confirmed Type aspirin 81 mg chewable tablet 81 mg PO DAILY 05/10/21 08/31/23 History vit cap PO 05/10/21 05/10/21 History C,E,zinc,Lt-uorcb-2-lutein-zeaxanthin 250 mg-2.5 mg-0.5 mg capsule atorvastatin 40 mg tablet 40 mg PO BEDTIME 08/31/23 08/31/23 History latanoprost 0.005 % eye drops 1 drp EYE-BOTH BEDTIME 08/31/23 08/31/23 History Allergies Allergy/AdvReac Type Severity Reaction Status Date / Time No Known Drug Allergies Allergy Verified 08/31/23 21:40 Review of Systems Constitutional Comments: w/o fever, chills, sweats Eyes Comments: decreased visual acuity chronically Cardiovascular Comments: w/o palpitations or chest pain She had some MSK chest wall pain Respiratory Comments: w/o cough or dyspnea Gastrointestinal Comments: w/o complaints Genitourinary Comments: w/o dysuria Musculoskeletal Comments: hip pain Exam Vital Signs (past 8 hours): - 09/01/23 00:00 09/01/23 04:36 Temperature 98.8 F 97.8 F Pulse Rate 65 68 Respiratory Rate 16 16 Blood Pressure 155/63 H 148/47 H Pulse Oximetry 98 94 Oxygen Delivery Method Nasal Cannula Oxygen Flow Rate 2 Const Other: laying in bed in no distress HENMT Other: normocephalic Eyes Other: reactive pupils, eomi Neck Other: supple Chest Other: normal respiratory effort Cardio Other: RRR GI Other: not distended Neuro Other: w/o deficits Psych Other: lucid, decisional Objective Labs 08/31/23 20:45 08/31/23 20:45 Labs: Laboratory Results - last 24 hr 08/31/23 20:45 WBC 11.2 H RBC 5.24 H Hgb 14.2 Hct 43.5 MCV 82.9 MCH 27.1 MCHC 32.7 RDW 16.1 H Plt Count 149 L Neut % (Auto) 88.3 H Lymph % (Auto) 7.1 L [place] % (Auto) 4.2 Eos % (Auto) 0.3 L Baso % (Auto) 0.1 Neut # (Auto) 9900 H Lymph # (Auto) 800 L [place] # (Auto) 500 Eos # (Auto) 0 Baso # (Auto) 0 Sodium 138 Potassium 3.9 Chloride 103 Carbon Dioxide 26 BUN 26 H Creatinine 0.86 Estimated GFR > 60 BUN/Creatinine Ratio 30.2 H Glucose 137 H Calcium 9.4 Assessment & Plan Assessment and plan (1) Closed fracture of neck of left femur: Status: Acute Plan: - NPO after midnight for likely OR with orthopedic surgery (2) Obstructive sleep apnea of adult: Status: Chronic Plan: CPAP (3) Benign essential HTN: Status: Chronic Plan: On no medications at home (4) Hyperlipidemia: Status: Acute Plan: Lipitor at home Can resume with resumed PO (5) Spinal stenosis of lumbar region: Status: Acute Plan: in the history - w/o claudications (6) Chronic GERD: Status: Acute Plan: on no medications - PPI iv x 1 for GI prophylaxis
[2023-09-01 06:35] LABS: Add Manual Diff / Slide Review NO; Basophils Absolute Auto 0 /uL (0-100); Basophils Percent Auto 0.6 % (0-2); Eosinophils Absolute Auto 0 /uL (0-450); Eosinophils Percent Auto 0.4 % (2-4); Hematocrit 39.8 % (36-46); Hemoglobin 13.3 g/dL (12.0-16.0); Lymphocytes Absolute Auto 1100 /uL (1100-4500); Lymphocytes Percent Auto 16.9 % (25-40); Mean Corpuscular HGB Conc 33.5 % (30-36); Mean Corpuscular Hemoglobin 27.3 PG (26-34); Mean Corpuscular Volume 81.6 fL (80-100); Monocytes Absolute Auto 700 /uL (0-900); Monocytes Percent Auto 10.1 % (3-14); Neutrophils Absolute Auto 4700 /uL (1500-7000); Platelet Count 134 X10^3/uL (150-400); Red Blood Cell Count 4.87 X10^6/uL (4.0-5.2); Red Cell Distribution Width 16.3 % (11.6-14.8); White Blood Cell Count 6.5 X10^3/uL (4.5-11.0)
[2023-09-01 06:42] LABS: BUN Creatinine Ratio 25.9 (6-22); Blood Urea Nitrogen 22 mg/dL (7-17); Calcium 9.2 mg/dL (8.4-10.2); Carbon Dioxide 25 mmol/L (22-32); Chloride 104 mmol/L (98-107); Estimated Glomerular Filt Rate > 60 mL/min (>60); Glucose 126 mg/dL (80-110); HEMOLYSIS < 15 (0-50); Potassium 4.1 mmol/L (3.4-5.1); Sodium 135 mmol/L (137-145)
[2023-09-01] MEDS: PANTOPRAZOLE 40 MG VIAL IV (08:29)
[2023-09-01] MEDS: ONDANSETRON 4 MG/2 ML INJ IV (08:43)
[2023-09-01] MEDS: DEXTROSE 5%-0.9% NS 1,000 ML 75 ML IV (09:33)
[2023-09-01] MEDS: ACETAMINOPHEN 325 MG TABLET 650 MG PO (11:30)
[2023-09-01] MEDS: OXYCODONE IR 5 MG TABLET PO (11:30)
--- NOTE | 2023-09-01 11:33 | PM.PN.1 ---
Subjective Subjective Interval history: 77 F admitted with a L femoral neck fracture after a mechanical fall hiking on a local trail. Pain controlled this morning, has not taken pain medications since yesterday evening. Plan is for surgical procedure today with orthopedics. Exam Vital Signs (past 8 hours): - 09/01/23 04:36 09/01/23 07:21 09/01/23 07:30 Temperature 97.8 F 98.6 F Pulse Rate 68 65 63 Respiratory Rate 16 14 18 Blood Pressure 148/47 H 155/57 H Pulse Oximetry 94 95 94 Oxygen Delivery Method Room Air Oxygen Flow Rate 0 0 Fraction of Inspired Oxygen 21 Fraction of Inspired Oxygen 21 SaO2/FiO2 Ratio 452 Oxygen Delivery Method Room Air Oxygen Flow Rate 0 Narrative Exam Narrative: Gen: No acute distress CV: RRR no m/r/g Pulm: CTA b/l Abd: Soft, mild distension, non-tender Ext: no edema or joint effusions Neuro: alert and oriented, no focal deficits. Objective Labs 09/01/23 06:05 09/01/23 06:05 Labs: Laboratory Results - last 24 hr 08/31/23 09/01/23 20:45 06:05 WBC 11.2 H 6.5 RBC 5.24 H 4.87 Hgb 14.2 13.3 Hct 43.5 39.8 MCV 82.9 81.6 MCH 27.1 27.3 MCHC 32.7 33.5 RDW 16.1 H 16.3 H Plt Count 149 L 134 L Neut % (Auto) 88.3 H 72.0 Lymph % (Auto) 7.1 L 16.9 L [place] % (Auto) 4.2 10.1 Eos % (Auto) 0.3 L 0.4 L Baso % (Auto) 0.1 0.6 Neut # (Auto) 9900 H 4700 Lymph # (Auto) 800 L 1100 [place] # (Auto) 500 700 Eos # (Auto) 0 0 Baso # (Auto) 0 0 Sodium 138 135 L Potassium 3.9 4.1 Chloride 103 104 Carbon Dioxide 26 25 BUN 26 H 22 H Creatinine 0.86 0.85 Estimated GFR > 60 > 60 BUN/Creatinine Ratio 30.2 H 25.9 H Glucose 137 H 126 H Calcium 9.4 9.2 PFSH Medical History (Updated 09/01/23 @ 06:45 by Александр Kohler MD) Fatigue Ocular migraine Sinusitis, chronic Macular degeneration Osteoarthritis Benign essential HTN Hyperlipidemia Spinal stenosis of lumbar region Chronic GERD Obstructive sleep apnea of adult (~2000) Social History marital status: details: to Yusuf household members: spouse lives independently: Yes caregiver/support person: No housing: house pets and animals: No Smoking Status: Never smoker Assessment & Plan Assessment & Plan narrative: #Closed fracture of neck of left femur: - management per orthopedic surgery, plan for surgical procedure today. - continue NPO, light IV fluids. # Obstructive sleep apnea of adult: - continue home CPAP #Hyperlipidemia: - continue home asa and statin. Code: Full, surrogate is patient's spouse DVT: per orthopedics, probably asa BID after OR Dispo: admitted inpatient, suspect she may be able to discharge home a few days after surgery. Less likely SNF.
--- NOTE | 2023-09-01 14:40 | CM.DANOTE ---
Reviewed EMR and team rounds for pt's medical status and anticipated d/c needs. Met with pt at bedside to introduce self and role. Pt was found to be drowsy, but oriented and able to discuss concerns/questions related to her discharge needs. Payor: Medicare PCP: Antonio Dueñas Pt is a 77 year-old F admitted for a hip fracture after sustaining a ground level fall while hiking. She shares that she is at baseline very physically active, and that this is her first time needing to stay the night in the hospital. Surgical repair of her hip is scheduled for today. She resides in her own home with her spouse, who will also plan to transport her home. DCP to follow for pending OT/PT eval and recommendations for d/c. Discharge Planning/Care Management CM Discharge Assessment Start: 09/01/23 14:37 Freq: Status: Active Protocol: Document 09/01/23 14:37 DPL (Rec: 09/01/23 14:40 DPL [id number]) Discharge Planning Assessment Assigned [employer] ANIRUDH Shi Advance Directives? No History Provided By Patient,Medical Record Prior Living Arrangements House Household Members spouse Independent with ADL's Yes Is patient alert and oriented? Yes Comment N/A Caregiver for Another No Comment N/A Comment Pt will be obtaining the recommended DME prior to d/c. Barriers to Discharge No Transportation Arrangement N/A Referrals Initiated None needed Comment Pending PT/OT recommendations. Whiteboard Updated in Patient Room with Yes name and ext. # of [employer] Review Status In Process Please Provide Date Initial DC 09/01/23 Assessment Was Performed
[2023-09-01] MEDS: LACTATED RINGERS 1,000 ML 42 ML IV ×2 (17:20→19:20)
--- NOTE | 2023-09-01 17:48 | P.HP_ITS ---
History of Present Illness History of Present Illness Date Patient Seen: 09/01/23 Time Patient Seen: 17:48 Chief complaint: Hip pain Narrative: 77-year-old female seen in evaluation for left hip pain. She sustained a fall while hiking at dissection past. She had to be carried for a mile on a stretcher. She was admitted here and evaluated by the Internal Medicine team who cleared her for surgery. She does not use ambulatory aids at baseline. She is very active for a 77-year-old female patient. She enjoys cruises and enjoys going on hikes. She complains of pain in the left hip. It is exacerbated by movement and improved with rest PFS Medical History (Updated 09/01/23 @ 06:45 by Александр Kohler MD) Fatigue Ocular migraine Sinusitis, chronic Macular degeneration Osteoarthritis Benign essential HTN Hyperlipidemia Spinal stenosis of lumbar region Chronic GERD Obstructive sleep apnea of adult (~2000) Social History marital status: details: to Yusuf household members: spouse lives independently: Yes caregiver/support person: No housing: house pets and animals: No Smoking Status: Never smoker alcohol intake: current Meds Home Medications and Allergies Home Medications Medication Instructions Recorded Confirmed Type aspirin 81 mg chewable tablet 81 mg PO DAILY 05/10/21 08/31/23 History vit 1 cap PO DAILY 05/10/21 09/01/23 History C,E,zinc,Nm-atxwd-9-lutein-zeaxanthin 250 mg-2.5 mg-0.5 mg capsule atorvastatin 40 mg tablet 40 mg PO BEDTIME 08/31/23 08/31/23 History latanoprost 0.005 % eye drops 1 drp EYE-BOTH BEDTIME 08/31/23 08/31/23 History Allergies Allergy/AdvReac Type Severity Reaction Status Date / Time No Known Drug Allergies Allergy Verified 09/01/23 17:04 Review of Systems Review of Systems ROS: Yes All systems reviewed with the patient and are negative except as otherwise documented Exam Vital Signs (past 8 hours): - 09/01/23 11:59 09/01/23 15:31 09/01/23 17:20 Temperature 98.4 F 99.4 F 98.0 F Pulse Rate 58 L 57 L 56 L Respiratory Rate 16 16 14 Blood Pressure 153/58 H 151/63 H 160/63 H Pulse Oximetry 94 95 93 Oxygen Delivery Method Room Air Oxygen Flow Rate 0 0 Fraction of Inspired Oxygen 21 SaO2/FiO2 Ratio 452 Oxygen Delivery Method Room Air Oxygen Flow Rate 0 Narrative Exam Narrative: Left lower extremity: Sensation intact to light touch in L2 through S1 nerve distributions. Palpable DP pulse. Flexes and extends hallux and ankle Const General: cooperative Orientation: alert and awake HENMT Head: normal to inspection Ears: hearing grossly normal bilaterally Eyes General: appearance normal, both eyes and all related structures Neck Neck: normal visual inspection Resp Effort & Inspection: normal respiratory effort and able to speak in complete sentences Cardio Pulses: other (peripheral pulses present) Skin Lesions: no lesions Rashes: no rashes Neuro General: patient alert, patient awake and moves all extremities Psych Appearance: grossly normal Objective Imaging Left hip x-ray: My impression: valgus impacted femoral neck fracture Labs 09/01/23 06:05 09/01/23 06:05 Labs: Laboratory Results - last 24 hr 08/31/23 09/01/23 20:45 06:05 WBC 11.2 H 6.5 RBC 5.24 H 4.87 Hgb 14.2 13.3 Hct 43.5 39.8 MCV 82.9 81.6 MCH 27.1 27.3 MCHC 32.7 33.5 RDW 16.1 H 16.3 H Plt Count 149 L 134 L Neut % (Auto) 88.3 H 72.0 Lymph % (Auto) 7.1 L 16.9 L [place] % (Auto) 4.2 10.1 Eos % (Auto) 0.3 L 0.4 L Baso % (Auto) 0.1 0.6 Neut # (Auto) 9900 H 4700 Lymph # (Auto) 800 L 1100 [place] # (Auto) 500 700 Eos # (Auto) 0 0 Baso # (Auto) 0 0 Sodium 138 135 L Potassium 3.9 4.1 Chloride 103 104 Carbon Dioxide 26 25 BUN 26 H 22 H Creatinine 0.86 0.85 Estimated GFR > 60 > 60 BUN/Creatinine Ratio 30.2 H 25.9 H Glucose 137 H 126 H Calcium 9.4 9.2 Assessment & Plan Assessment and plan (1) Closed fracture of neck of left femur: Status: Acute Plan Patient has a valgus impacted femoral neck fracture. I discussed operative management with her at length today. I discussed closed reduction and percutaneous pinning. I counseled her that the risk of nonunion and eventual need for conversion to arthroplasty is high with this procedure. Some studies have estimated it at 10-15%. I discussed hemiarthroplasty and the long-term risk of acetabular erosion. I feel that this would be high given her overall high function. I therefore have recommended total hip arthroplasty. I counseled her regarding the risks and benefits of this surgery. All questions were answered. We will plan to proceed this evening with left total hip arthroplasty through anterior approach with a cemented stem.
[2023-09-01] MEDS: CEFAZOLIN 2 GM/100 ML PREMIX 100 ML IV (18:14)
[2023-09-01] MEDS: TRANEXAMIC ACID 1,000 MG in SODIUM CHLORIDE 0.9% 100 ML 200 MG IV (18:18)
--- NOTE | 2023-09-01 18:39 | SUR.OPER ---
Supine on padded [place] table with bilateral legs secured in padded positioning boots and suspended in positioning spars, operative leg in traction per surgeon. Head on one pillow. Arms on secured on padded armboard <90 degrees abduction. Padded perineal post in place per surgeon.
[2023-09-01] MEDS: EPINEPHrine 1 MG/ML INJ (18:46)
[2023-09-01] MEDS: ROPIVACAINE/EPI/CLONIDINE/KET 50 ML SYRINGE INJ (20:08)
--- NOTE | 2023-09-01 20:39 | PM.OP.1 ---
Operative Date/Time/Diagnoses Date of procedure: 09/01/23 Pre-op diagnosis: Valgus impacted left femoral neck fracture Post-op diagnosis: same Procedure & Clinicians Procedure: Left total hip arthroplasty Same procedure as scheduled: Yes Surgeon: Chris Walker Click Yes if Unassisted: Yes Anesthesia Type: General and Local Operative Notes Findings: Displaced femoral neck fracture Prosthetic devices, grafts, tissues, transplants, or devices: Depuy size 54 Gription acetabular cup with single screw and size 4 standard offset [place] cemented femoral stem with 36 mm +1.5 ceramic head Estimated Blood Loss (mL): 500 Procedure in detail: This 77-year-old female patient sustained a valgus impacted left femoral neck fracture while hiking locally. She was met in the preoperative holding area the day of surgery. I discussed management of her injury with her. I discussed closed reduction and percutaneous pinning, hemiarthroplasty, and total hip arthroplasty. I recommended total hip arthroplasty because of the high risk of nonunion and poor functional outcomes associated with closed reduction and percutaneous pinning and the high risk of acetabular erosion with hemiarthroplasty given her relatively high function for her age. All questions were answered. Informed consent was signed. The operative site was marked. Risks and benefits were discussed in detail. The patient was brought back to the operating room and placed supine on the [place] table. All bony prominences were padded. She was prepped and draped in the usual sterile fashion. A time-out procedure was performed. I utilized an anterior approach to the hip. A longitudinal incision was utilized. The rectus and TFL were dissected apart and the lateral circumflex vessels were coagulated. Cobra retractors were placed over the superior and inferior femoral neck. An anterior wall retractor was placed to tension the reflected head of rectus femoris and this was released. A capsulotomy was performed in line with the femoral neck with an extension up onto the ilium. A tag stitch was placed in both the superior and inferior leaflets of the capsulotomy and a soft tissue protector was placed inside the wound to retract the rectus and TFL. The Cobra retractors were placed intracapsularly and the fracture site was clearly evident. It extended down further than I had initially appreciated on the preoperative radiographs, extending down almost to the lesser trochanter. The capsulotomy was extended medially to the lesser trochanter and a freshening cut was made. The femoral head was removed with a femoral head extractor and measured at 48 mm. Additional bone was removed from the fracture site. The foot was placed in external rotation and traction and retractors were placed on the posterior and anterior wall of the acetabulum. An inferior capsulotomy release was utilized. The labrum was excised sharply. The pulvinar was excised with Bovie electrocautery ensuring the obturator branches in the base of the pulvinar were coagulated. The 51 mm Reamer was introduced and utilized to ream in an anatomic position. The Reamer was loose in the base of the cup so I moved to a size 53 Reamer. This achieved a good pinch fit. I therefore brought in fluoroscopy and obtained an AP pelvis and reamed to the floor of the medial wall under fluoroscopy. The acetabulum was cleaned and a size 54 acetabular cup was inserted into place. An AP pelvis radiograph was utilized to gauge the abduction and anteversion of the cup. Once satisfied I impacted into place and placed a single screw. I initially placed a 2nd screw however this did not achieve good purchase so I wasted that screw. A liner was placed for a 36 mm head and impacted into place. I verified that it had achieved good interlocking with the cup by testing it with a tonsil. All retractors were removed at this time and a retractor was placed over the greater trochanter. This was between the gluteus minimus and the capsule. The hip was placed in 90? of external rotation and traction was applied. I released the lateral capsule extending towards the nose of the greater trochanter. The traction was released and the hip remained at 90? of external rotation. A [place] hook was placed underneath the proximal femur and used to pull the femur away from the cup while hyperextending and adducting. A retractor was placed over the medial calcar and a separate retractor was placed over the greater trochanter. The hip was externally rotated to 120?. I released the conjoined tendon and this provided additional external rotation which allowed me to rotated to 140?. The hip was elevated using a combination of the retractor over the greater trochanter and the [place] hook. The canal was opened with a woodwind reeds cutter as well as the opening rasp. I then broached up to a size 4 [place] broach. A calcar planer was utilized to set the depth of this broach. I placed a standard neck and a +1.5 mm head. All retractors were removed, the capsule was positioned to allow reduction, and the hip was returned to neutral extension. I manually reduced the hip and noted good stability with maximum external rotation and a 45 degree drop test. On AP fluoroscopy the hip was noted to have slightly diminished offset and leg length compared to the other side although both were very close. I therefore planned to place a +5 head. I returned to the broaching position and replaced all of the retractors. I removed the size 4 broach and used a canal commercial producer to irrigate down the canal. I placed a cement restrictor which had been measured to the collar of the implant and again irrigated using a canal commercial producer. I placed a whistle tip catheter hooked up to suction down the canal and epinephrine-soaked vaginal packing down the canal as well. I removed the vaginal packing and placed cement down the canal. I digitally pressurized this. I also used a supervisor chlorine liquefaction tip. I then removed the whistle tip catheter and placed the size 4 standard offset [place] cemented stem down the canal. I pushed this down until it rested against the calcar which had been calcar planed. I allowed the cement to dry and impacted into place a +5 36 mm ceramic head onto a clean dry trunnion. I removed all of the retractors and returned the hip to neutral extension. I manually reduced the hip and noted good stability with maximum external rotation to 110? and a 45 degree drop test. AP fluoroscopy was obtained which demonstrated appropriate offset and leg length. AP hip radiograph was obtained demonstrating good cement mantle and a stem in neutral varus valgus inclination. Being satisfied with this I soaked the wound in Betadine and then copiously irrigated the soft tissues. I closed the hip using a combination of Vicryl Stratafix and Monocryl sutures. Applied Dermabond and an Aquacel dressing. The patient was taken to the recovery room after being transferred off of the [place] table and awoke from anesthesia without complication. Post-operative Plan for aftercare: Weightbearing as tolerated Aspirin DVT prophylaxis Anticipate discharge home Follow up with me in 2 weeks in clinic for wound check
--- NOTE | 2023-09-01 20:51 | DI.RAD.S_ITS ---
PROCEDURE: XR CHEST 1V INDICATIONS: Postop hypoxia TECHNIQUE: One view of the chest was acquired. COMPARISON: [facility], CR, XR CHEST 2V, 06/26/2021, 15:35. [facility], CR, XR CHEST 1V, 12/16/2020, 12:33. FINDINGS: Surgical changes and devices: None. Lungs and pleura: Mild hazy opacity at the lung bases. No pleural effusions or pneumothorax. Mediastinum: Mediastinal contours appear unchanged. Heart size is normal. Bones and chest wall: No suspicious bony lesions. Overlying soft tissues appear unremarkable. IMPRESSION: Mild hazy opacity at the lung bases. Favor atelectasis over pneumonia or aspiration. Dictated by: Mike Mustafa M.D. on 09/01/2023 at 22:02 Approved by: Mike Mustafa M.D. on 09/01/2023 at 22:03
[2023-09-01] MEDS: ALBUTEROL 2.5 MG/3 ML NEB (ADULT) INH (21:03)
--- NOTE | 2023-09-01 21:40 | SUR.OPER ---
Report called to Pipo.
--- NOTE | 2023-09-01 21:58 | SUR.PHASEI ---
Patient transferred to the floor on the monitor, with 15L O2, CPAP in place. Report given to Pipo. Patient awake, moving extremities independently. Nails and IV patent.
[2023-09-01] MEDS: DOCUSATE 100 MG CAPSULE PO (22:19)
[2023-09-01] MEDS: ASPIRIN EC 81 MG TABLET PO (22:19)
[2023-09-01] MEDS: ATORVASTATIN 20 MG TABLET 40 MG PO (22:19)
[2023-09-01] MEDS: LACTATED RINGERS 1,000 ML 100 ML IV (22:20)
[2023-09-02] VITALS (12 sets, daily range): BP systolic 85–157; BP diastolic 33–56; PULSE 51–102; RESP 16–18; TEMP 36.2–36.9; O2SAT 91–100
[2023-09-02] MEDS: CEFAZOLIN 2 GM/100 ML PREMIX 100 ML IV ×2 (02:30→11:20)
[2023-09-02 06:17] LABS: Hematocrit 29.6 % (36-46); Hemoglobin 9.9 g/dL (12.0-16.0)
--- NOTE | 2023-09-02 07:58 | PM.PNPO.1 ---
Subjective Subjective Date Patient Seen: 09/02/23 Time Patient Seen: 07:58 Interval history: 77-year-old female resting comfortably in bed in no apparent distress. States her pain is mild. No fever or chills. No nausea or vomiting. Exam Vital Signs (past 8 hours): - 09/02/23 00:01 09/02/23 01:26 09/02/23 05:02 Temperature 98.2 F 98.3 F 98.3 F Pulse Rate 56 L 66 74 Respiratory Rate 18 16 16 Blood Pressure 127/47 L 110/53 L 141/56 H Pulse Oximetry 95 96 91 Oxygen Flow Rate 11 11 6 09/02/23 06:39 Temperature Pulse Rate Respiratory Rate Blood Pressure Pulse Oximetry 93 Oxygen Flow Rate 3 Fraction of Inspired Oxygen 21 SaO2/FiO2 Ratio 452 Oxygen Delivery Method Nasal Cannula,CPAP Oxygen Flow Rate 3 Narrative Exam Narrative: 77-year-old female resting comfortably in bed in no apparent distress. Dressing is clean, dry and intact. Motor functions intact bilateral lower extremities. Sensation grossly intact to light touch bilateral lower extremities. Const General: cooperative and comfortable Nutritional Appearance: average body habitus Orientation: alert Resp Effort & Inspection: normal respiratory effort and able to speak in complete sentences Objective Labs 09/02/23 05:40 09/01/23 06:05 Labs: Laboratory Results - last 24 hr 09/02/23 05:40 Hgb 9.9 L Hct 29.6 L PFSH Medical History (Updated 09/01/23 @ 06:45 by Александр Kohler MD) Fatigue Ocular migraine Sinusitis, chronic Macular degeneration Osteoarthritis Benign essential HTN Hyperlipidemia Spinal stenosis of lumbar region Chronic GERD Obstructive sleep apnea of adult (~2000) Social History marital status: details: to Yusuf household members: spouse lives independently: Yes caregiver/support person: No housing: house pets and animals: No Smoking Status: Never smoker alcohol intake: current Assessment & Plan Post-op Postoperative Procedures: Procedures Operation Date: 09/01/23 17:30 Actual Procedure Side Surgeon p total hip arthroplasty Left Chris Walker MD Postoperative day: 1 Postoperative status narrative: Stable status post left total hip arthroplasty Anemia likely due to acute blood loss during surgery. Postoperative plan narrative: Weightbearing as tolerated Mobilize with physical therapy Aspirin for DVT prophylaxis Follow up in Orthopedic Clinic in 2 weeks Anticipate discharge home when medically stable per hospitalist
[2023-09-02] MEDS: ASPIRIN EC 81 MG TABLET PO ×2 (08:05→20:33)
[2023-09-02] MEDS: DOCUSATE 100 MG CAPSULE PO ×2 (08:05→20:33)
[2023-09-02 08:18] LABS: Magnesium 1.3 mg/dL (1.6-2.3)
[2023-09-02 08:46] LABS: Blood Urea Nitrogen 16 mg/dL (7-17); Calcium 8.3 mg/dL (8.4-10.2); Carbon Dioxide 25 mmol/L (22-32); Chloride 103 mmol/L (98-107); Estimated Glomerular Filt Rate > 60 mL/min (>60); Glucose 109 mg/dL (80-110); HEMOLYSIS < 15 (0-50); Potassium 4.4 mmol/L (3.4-5.1); Sodium 132 mmol/L (137-145)
[2023-09-02] MEDS: MAGNESIUM SULFATE 2 GM/50 ML PIGGYBACK IV (08:50)
[2023-09-02 09:18] LABS: Add Manual Diff / Slide Review NO; Basophils Absolute Auto 0 /uL (0-100); Basophils Percent Auto 0.1 % (0-2); Eosinophils Absolute Auto 0 /uL (0-450); Hematocrit 29.6 % (36-46); Hemoglobin 9.9 g/dL (12.0-16.0); Lymphocytes Absolute Auto 600 /uL (1100-4500); Lymphocytes Percent Auto 7.9 % (25-40); Mean Corpuscular HGB Conc 33.4 % (30-36); Mean Corpuscular Hemoglobin 27.8 PG (26-34); Mean Corpuscular Volume 83.2 fL (80-100); Monocytes Absolute Auto 600 /uL (0-900); Monocytes Percent Auto 7.5 % (3-14); Neutrophils Absolute Auto 6500 /uL (1500-7000); Neutrophils Percent Auto 84.5 % (50-75); Platelet Count 95 X10^3/uL (150-400); Red Blood Cell Count 3.56 X10^6/uL (4.0-5.2); Red Cell Distribution Width 16.4 % (11.6-14.8); White Blood Cell Count 7.7 X10^3/uL (4.5-11.0)
--- NOTE | 2023-09-02 11:02 | PC.NURSE ---
Pt's Spouse Yusuf reported that Pt had stated that she was feeling dizzy. Spoke with Pt who reiterated that she did feel a bit dizzy but remained oriented with ability to RAINES equally and without numbness (left lower ext weakness secondary to left hip surgery was also factored in.) Pt O2 sat was 100% on RA. Pt oriented x 4. Pt bp 86/33, 85/34, hr 56-61. Denies nausea, pain, headache, numbness, chest pain, or shortness of breath. Pt placed in trendelenberg position and bp rechecked with result of 124/43, 127/44, 124/44 with hr of 70. Blood glucose checked with result of 128. Pt denies dizziness and is speaking clearly and alert. Denies pain or discomfort. IV Magnesium infusion completed and IV abx hung as ordered. Pt agrees to call for assistance as needed. Bed alarm on for safety.
--- NOTE | 2023-09-02 13:20 | PT.IIE ---
Addendum entered by Orly Carlin 09/02/23 16:13: send POC Addendum entered by Orly Carlin 09/02/23 16:04: send POC Addendum entered by Orly Carlin 09/02/23 16:03: send POC Addendum entered by Orly Carlin 09/02/23 16:00: send POC Original Note: Current Diagnoses Hyperlipidemia, unspecified (08/31/23) Obstructive sleep apnea (adult) (pediatric) (08/31/23) Essential (primary) hypertension (08/31/23) Gastro-esophageal reflux disease without esophagitis (08/31/23) Spinal stenosis, lumbar region without neurogenic claudication (08/31/23) Fracture of unspecified part of neck of left femur, initial encounter for closed fracture (08/31/23) Surgery Performed Operation Date: 09/01/23 17:30 Actual Procedures p total hip arthroplasty(Left) - Chris Walker MD Medical History (Last Updated 09/01/23 @ 06:45 by Александр Kohler MD) Benign essential HTN Chronic GERD Fatigue Hyperlipidemia Macular degeneration Obstructive sleep apnea of adult (~2000) Ocular migraine Osteoarthritis Sinusitis, chronic Spinal stenosis of lumbar region Physical Therapy Inpatient Evaluation/Re-Eval M1 PT/OT-IP Prior Functional Status Start: 09/02/23 13:27 Freq: NEEDED Status: Active Protocol: Document 09/02/23 15:57 KJ (Rec: 09/02/23 13:40 KJ [id number]) Medical Review Prior Functional Status Medical History Reviewed Yes Social History Household Members spouse Living Arrangements House Number of Floors (Floors) One Floor Number of Stairs To Enter/Railing? 1 no railing Home Equipment Crutches Employment Status Retired Additional Social History Comment Lives with M1 PT/OT-IP Prior Functional Status Start: 09/02/23 14:59 Freq: NEEDED Status: Active Protocol: Document 09/02/23 13:32 CCC (Rec: 09/02/23 15:36 CCC [id number]) Medical Review Prior Functional Status Medical History Reviewed Yes Mobility and Gait Pt is an active hiker. Activities of Daily Living and IADL's Pt is independent with all ADl 's, IADl's , assist with meds from her . Social History Household Members spouse Living Arrangements House Number of Floors (Floors) One Floor Number of Stairs To Enter/Railing? 1 no railing Home Equipment Crutches Employment Status Retired Additional Social History Comment Lives with M2 PT-IP Current Condition Start: 09/02/23 13:27 Freq: NEEDED Status: Active Protocol: Document 09/02/23 15:57 KJ (Rec: 09/02/23 13:40 KJ [id number]) Physical Therapy Current Condition Current Condition Evaluation Date 09/02/23 Treatment Diagnosis Impaired mobility s/p L hip fx w/total hip arthroplasty anterior approach Onset Date 08/31/23 M3 PT-IP Subjective Start: 09/02/23 13:27 Freq: NEEDED Status: Active Protocol: Document 09/02/23 15:57 KJ (Rec: 09/02/23 13:40 KJ [id number]) Subjective Physical Therapy Visit Type Type Initial Evaluation Visit Start Time 12:41 Visit Stop Time 13:26 Total Visit Minutes 47 Physical Therapy Visit Comments Patient Goals Return home with , able to ambulate 150' and ascend/ descend 1 step w/walker and sba Therapy Pain Assessment Pain When Pain Assessed During Mobility Pain Present Pain Present Pain Reported Location Left Knee Intensity 2 Scale Used Numeric (0 - 10) Description Aching Pain Management Techniques Re-positioning Left Hip Scale Used 3/10 Description Aching Pain Behaviors Facial Grimacing Pain Management Techniques Re-positioning M4 PT-IP Mobility and Gait Start: 09/02/23 13:27 Freq: NEEDED Status: Active Protocol: Document 09/02/23 15:57 KJ (Rec: 09/02/23 13:40 KJ [id number]) PT-Bed Mobility Assessment Supine to Sit Supine to Sit Moderate Assistance Scooting Scooting to Edge of Bed Moderate Assistance PT-Transfer Assessment Sit to and From Stand Sit to and from Stand Minimal Assistance Equipment Transfer Assistive Device Gait Belt,Front Wheeled Walker Orthotic/Prosthetic Devices or Brace: No Transfers Transfer Destination Chair Transfer Technique Stand Step Pivot Transfer Ability Level of Assist Minimal Assistance Comments Mobility Comments Pt reports no pain in L knee with weightbearing Gait Assessment Gait Gait Assistance Required: Minimum Assistance Distance (Feet) 2 Able to Maintain Weight Bearing Status Yes During Gait Assistive Devices Assistive Device Gait Belt,Front Wheeled Walker Factors Limiting Gait Function Factors Limiting Gait Function Decreased Activity Tolerance, Decreased Strength Comments Gait Comments shuffling steps PT-Balance Assessment Sitting Balance and Reactions Static Sitting Balance Ability Good Dynamic Sitting Balance Ability Good Standing Balance and Reactions Static Standing Balance Ability Fair Dynamic Standing Balance Ability Fair M5 PT-IP Objective Assessments Start: 09/02/23 13:27 Freq: NEEDED Status: Active Protocol: Document 09/02/23 15:57 KJ (Rec: 09/02/23 13:40 KJ [id number]) Orientation Orientation/Cognition Level of Alertness Alert Orientation Name,Age,Birthday,Month, Situation Language Function Ability No Deficits Noted Safety Awareness Understands Safety Issues Memory Description No Deficits Noted Gross Range of Motion Upper Extremity ROM Assessment Within Functional Limits Lower Extremity ROM Assessment Left Impaired Impairments decreased in hip and knee Strength Lower Extremity Strength Assessment Left Impaired Knee knee ext 3-/5 M6 PT-IP Treatment Start: 09/02/23 13:27 Freq: NEEDED Status: Active Protocol: Document 09/02/23 15:57 KJ (Rec: 09/02/23 13:40 KJ [id number]) Physical Therapy Treatment Exercises Exercises Ankle Pumps,Gluteal Sets,Quad Sets Education Education Provided Precautions,Weight Bearing Status,Safety Other Treatments Other Treatment Performed Instructed on incentive spirometry, diaphragmatic breathing and pursed lip breathing M7 PT-IP Assessment and Plan Start: 09/02/23 13:27 Freq: NEEDED Status: Active Protocol: Document 09/02/23 15:57 KJ (Rec: 09/02/23 13:40 KJ [id number]) PT Summary Assessment and Plan Potential Rehabilitation Potential Excellent Status of Condition at Evaluation Stable Summary Impairments Pain,ROM,Strength,Balance,Bed Mobility,Transfers,Gait, Activity Tolerance Goals Bed Mobility Goal Standby Assistance Transfer Goal Standby Assistance Gait Goal Standby Assistance Gait Distance 150' Other Goals Ascend/descend 1 step w/fww and CGA Days to Meet Goals 3 Frequency of Treatment Frequency Of Treatment Twice a Day Treatment Plan Physical Therapy Treatment Plan Bed Mobility Training,Transfer Training,Gait Training, Therapeutic Exercise,Balance Retraining Other Recommendations and Next Treatment 1 step Focus Precautions Anterior Hip Precautions No Hip Extension,No Hip External Rotation Weight Bearing Status Weight Bearing Status Weight Bear as Tolerated Recommendations To Nursing Amount of Assist Needed 1 Person Assist Discharge Recommendations PT Discharge Recommendations Home with Assistance,Home Health Equipment Needed for Home Before Per OT Discharge Transportation Needs at Discharge Private Vehicle
--- NOTE | 2023-09-02 13:23 | CM.DPC ---
Addendum entered and electronically signed by Yuridia Hogue, HOT MOLDER 09/02/23 13:56: Update-pt will d/c tomorrow, will need to obtain DME prior, as well as work more with PT/OT before she discharges. Will meet with family tomorrow to discuss HH preference. Original Note: DCP Cont. Reviewed EMR and team rounds for updates. Per Dr. Garcia, pt is cleared to discharge today if cleared by PT/OT. Pt is currently working with PT during this HOT MOLDER check-in. OT eval to follow. If not cleared today, pt will d/c tomorrow. Cont. to monitor.
--- NOTE | 2023-09-02 13:32 | OT.IP.EVAL ---
Current Diagnoses Hyperlipidemia, unspecified (08/31/23) Obstructive sleep apnea (adult) (pediatric) (08/31/23) Essential (primary) hypertension (08/31/23) Gastro-esophageal reflux disease without esophagitis (08/31/23) Spinal stenosis, lumbar region without neurogenic claudication (08/31/23) Fracture of unspecified part of neck of left femur, initial encounter for closed fracture (08/31/23) Surgery Performed Operation Date: 09/01/23 17:30 Actual Procedures p total hip arthroplasty(Left) - Chris Walker MD Past Medical History (Last Updated 09/01/23 @ 06:45 by Александр Kohler MD) Benign essential HTN Chronic GERD Fatigue Hyperlipidemia Macular degeneration Obstructive sleep apnea of adult (~2000) Ocular migraine Osteoarthritis Sinusitis, chronic Spinal stenosis of lumbar region Occupational Therapy Inpatient Evaluation/Re-Eval M1 PT/OT-IP Prior Functional Status Start: 09/02/23 14:59 Freq: NEEDED Status: Active Protocol: Document 09/02/23 13:32 [facility] (Rec: 09/02/23 15:36 [facility] [id number]) Medical Review Prior Functional Status Medical History Reviewed Yes Mobility and Gait Pt is an active hiker. Activities of Daily Living and IADL's Pt is independent with all ADl 's, IADl's , assist with meds from her . Social History Household Members spouse Living Arrangements House Number of Floors (Floors) One Floor Number of Stairs To Enter/Railing? 1 no railing Pt has tub/shower and high toilet at home. Home Equipment Crutches Employment Status Retired Additional Social History Comment Lives with M2 OT-IP Current Condition Start: 09/02/23 14:59 Freq: Status: Active Protocol: Document 09/02/23 13:32 [facility] (Rec: 09/02/23 15:36 [facility] [id number]) Occupational Therapy Current Condition Current Condition Evaluation Date 09/02/23 Treatment Diagnosis S/P L BALTAZAR anterior precautions Diagnosis Onset Date 08/31/23 Post Operative Precautions Anterior Hip Precautions No Hip Extension,No Hip External Rotation M3 OT- IP Subjective and Pain Start: 09/02/23 14:59 Freq: Status: Active Protocol: Document 09/02/23 13:32 [facility] (Rec: 09/02/23 15:36 [facility] [id number]) OT- Subjective Occupational Therapy Visit Type Type Initial Evaluation Visit Start Time 13:32 Visit Stop Time 14:43 Total Visit Minutes 60 Occupational Therapy Visit Comments Patient Comments Pt wanting to use the bathroom and pt's in the room. Patient/Caregiver Goals To go home. OT Pain Assessment Pain When Pain Assessed At Rest Pain Present Pain Present Pain Reported Location Left Knee Intensity 3 Scale Used Numeric (0 - 10) M4 OT- IP ADL's Start: 09/02/23 14:59 Freq: Status: Active Protocol: Document 09/02/23 13:32 [facility] (Rec: 09/02/23 15:36 [facility] [id number]) OT [id number] General Evaluation Self-Feeding Ability Independent OT ADL-Grooming Comments OT Grooming Comments Not performed. OT ADL-Oral Care Comments Oral Care Comments Not performed. OT ADL-Dressing General Eval Lower Body Dressing Ability Maximum Assistance Areas Needing Assistance Socks Comments OT Dressing Comments Pt will benefit from use of her data entry processor and to get a sock aid as well. Pt's is able to assist her. OT ADL-Toileting General Evaluation Toileting Ability Moderate Assistance Areas Needing Assistance Manage Clothing,Perform Perineal Hygiene Comments OT Toileting Comments Pt will greatly benefit from a BSC, wet-ones and pull up brief at night. Pt needing to wipe for completeness and assist to help pull up the brief over her hips. OT ADL-Bathing Comments OT Bathing Comments Pt will benefit from a tub bench at home and hand held shower spray. M5 OT- IP IADL's Start: 09/02/23 14:59 Freq: Status: Active Protocol: Document 09/02/23 13:32 [facility] (Rec: 09/02/23 15:36 [facility] [id number]) OT-Instrumental Activities of Daily Living Deficits IADL Deficits Identified Deficits Home Safety Awareness Awareness of Need for Assistance at Home Good Awareness Medication Management Medication Management Caregiver Provides Supervision Money Management Money Management Comments Pt has autopay for her bills. Meal Preparation Meal Preparation Caregiver Provides Assist Meal Preparation Comments Pt's will be able to assist. Mill Operator Helper Mill Operator Helper Comments Pt's will be able to assist. M6 OT- IP Functional Cognition Start: 09/02/23 14:59 Freq: Status: Active Protocol: Document 09/02/23 13:32 [facility] (Rec: 09/02/23 15:36 [facility] [id number]) Cognitive Factors Limiting Selfcare Function Cognitive Ability Level of Alertness Alert Patient Orientation Name,Place,Situation Attention Span Ability Capable of Focused Attention, Capable of Sustained Attention Ability to Follow Commands Able to Follow One Step Commands with Increased Time, Able to Follow One Step Commands with Repetition Cognitive Comments Cognitive Assessment Comments Pt needing cues to follow her hip precautions for ADL and mobility needs. Pt will greatly benefit from more practice to be able to incorporate her hip precautions for ADL and mobility needs. OT- Vision and Hearing OT- Hearing Assessment OT- Hearing Assessment WFL OT- Vision Assessment Visual Acuity Glasses All The Time Visual Attentiveness WFL Occular Pursuits WFL Visual Convergence WFL M7 OT- IP Mobility and Balance Start: 09/02/23 14:59 Freq: Status: Active Protocol: Document 09/02/23 13:32 [facility] (Rec: 09/02/23 15:36 [facility] [id number]) OT- Bed Mobility Assessment Sit to Supine Sit to Supine Assist Moderate Assistance OT-Transfer Assessment Sit to and From Stand Sit to and from Stand Moderate Assistance,Maximum Assistance,1 Person Assistance Transfers Transfer Ability Minimal Assistance,Moderate Assistance Technique Transfer Destination Bed,Chair,Toilet Transfer Technique Stand Step Pivot Devices Transfer Assistive Devices Gait Belt,Front Wheeled Walker Comments Mobility Comments Pt MOD/MAXAX 1 to stand from the recliner and RAYMUNDO with the FWW. Pt needing cues for her hip precautions. Able to initiate training with her in how to assist the pt. At the end of the session pt needing less assist. OT- Balance Assessment Sitting Balance and Reactions Static Sitting Balance Ability Good Dynamic Sitting Balance Ability Fair Standing Balance and Reactions Static Standing Balance Ability Fair Dynamic Standing Balance Ability Fair M9 OT- IP Assessment and Plan Start: 09/02/23 14:59 Freq: Status: Active Protocol: Document 09/02/23 13:32 [facility] (Rec: 09/02/23 15:36 [facility] [id number]) OT Summary Assessment and Plan Potential Rehabilitation Potential Good Analytic Complexity at Evaluation Low Summary OT Impairments Pain,Balance,Functional Mobility,Grooming,Dressing, Toileting,Bathing,Toilet Transfers,Shower Transfers, Activity Tolerance Progress Towards Goals Progressing Toward Goals,Slow Progress due to Pain Assessment Summary Pt low complexity and main barriers are pain, step at home, and now needing assist for ADL and mobility needs. Pt will benefit from repetitive practice of hip precautions and caregiver training with her . Pt to go home with assist from her . Home health will be beneficial at this time. Goals Grooming Goal Independent Dressing Goal Independent,Long Handled Shoe Horn,Pipe Coverer Helper,Sock Aid Toileting Goal Independent Bathing Goal Standby Assistance Toilet Transfer Goal Independent Shower Transfer Goal Independent Patient/Caregiver Education Goal Caregiver Independent Assisting Patient Days to Meet Goals 10 Frequency of Treatment Frequency Of Treatment Once a Day Treatment Plan OT Treatment Plan ADL Training,Functional Mobility,Patient/Family Education,Discharge Planning Discharge Recommendations OT Discharge Recommendations Home with Assistance,Home Health Home Equipment Needs BSC, tub bench, LB dressing equipment, tub bench Transportation Needs at Discharge Private Vehicle
--- NOTE | 2023-09-02 14:14 | PT.IPTN ---
Current Diagnoses Hyperlipidemia, unspecified (08/31/23) Obstructive sleep apnea (adult) (pediatric) (08/31/23) Essential (primary) hypertension (08/31/23) Gastro-esophageal reflux disease without esophagitis (08/31/23) Spinal stenosis, lumbar region without neurogenic claudication (08/31/23) Fracture of unspecified part of neck of left femur, initial encounter for closed fracture (08/31/23) Surgery Performed Operation Date: 09/01/23 17:30 Actual Procedures p total hip arthroplasty(Left) - Chris Walker MD Physical Therapy Treatment Note M2 PT-IP Current Condition Start: 09/02/23 13:27 Freq: NEEDED Status: Active Protocol: Document 09/02/23 13:27 KJ (Rec: 09/02/23 13:40 KJ [id number]) Physical Therapy Current Condition Current Condition Evaluation Date 09/02/23 Treatment Diagnosis Impaired mobility s/p L hip fx w/total hip arthroplasty anterior approach Onset Date 08/31/23 M3 PT-IP Subjective Start: 09/02/23 13:27 Freq: NEEDED Status: Active Protocol: Document 09/02/23 15:08 TS (Rec: 09/02/23 15:30 TS [id number]) Subjective Physical Therapy Visit Type Type Treatment Note Visit Start Time 14:14 Visit Stop Time 14:44 Total Visit Minutes 30 Notes OT present Number of MANAGER OF TRAINING Visits 1 Physical Therapy Visit Comments Patient Comments Pt found on toilet with OT in room, pt agreeable to PT. Therapy Pain Assessment Pain When Pain Assessed During Mobility Pain Present Pain Present Pain Reported M4 PT-IP Mobility and Gait Start: 09/02/23 13:27 Freq: NEEDED Status: Active Protocol: Document 09/02/23 15:08 TS (Rec: 09/02/23 15:30 TS [id number]) PT-Bed Mobility Assessment Sit to Supine Sit to Supine Moderate Assistance Scooting Scooting to Edge of Bed Moderate Assistance PT-Transfer Assessment Sit to and From Stand Sit to and from Stand Contact Guard Assistance,1 Person Assistance,Use of Upper Extremities Equipment Transfer Assistive Device Gait Belt,Front Wheeled Walker Orthotic/Prosthetic Devices or Brace: No Comments Mobility Comments Sit to stand from toilet CGA with use of FWW. She ambulated to bed ~15' SBA with FWW and slow step to gait, required cues for proper step sequencing. She performed sit to supine with spouse ModA for LEs into bed, required max cues for sequencing. Pt feeling fatigued, would like to rest. Pt was left in bed, all needs met, spouse in room. Gait Assessment Gait Gait Assistance Required: Contact Guard Assist Distance (Feet) 15 Able to Maintain Weight Bearing Status Yes During Gait Assistive Devices Assistive Device Gait Belt,Front Wheeled Walker Orthotic/Prosthetic Devices or Brace: No Gait Deviations General Gait Pattern Decreased Stride Length, Decreased Feet Clearance,Step- to Gait Factors Limiting Gait Function Factors Limiting Gait Function Decreased Activity Tolerance, Decreased Strength Comments Gait Comments See mobility comments Stair Climbing Assessment Comments Stair Climbing Comments Not at this time. PT-Balance Assessment Sitting Balance and Reactions Static Sitting Balance Ability Good Dynamic Sitting Balance Ability Good Standing Balance and Reactions Static Standing Balance Ability Fair Dynamic Standing Balance Ability Fair M5 PT-IP Objective Assessments Start: 09/02/23 13:27 Freq: NEEDED Status: Active Protocol: Document 09/02/23 13:27 KJ (Rec: 09/02/23 13:40 KJ [id number]) Orientation Orientation/Cognition Level of Alertness Alert Orientation Name,Age,Birthday,Month, Situation Language Function Ability No Deficits Noted Safety Awareness Understands Safety Issues Memory Description No Deficits Noted Gross Range of Motion Upper Extremity ROM Assessment Within Functional Limits Lower Extremity ROM Assessment Left Impaired Impairments decreased in hip and knee Strength Lower Extremity Strength Assessment Left Impaired Knee knee ext 3-/5 M6 PT-IP Treatment Start: 09/02/23 13:27 Freq: NEEDED Status: Active Protocol: Document 09/02/23 15:08 TS (Rec: 09/02/23 15:30 TS [id number]) Physical Therapy Treatment Education Education Provided Precautions,Weight Bearing Status,Safety M7 PT-IP Assessment and Plan Start: 09/02/23 13:27 Freq: NEEDED Status: Active Protocol: Document 09/02/23 15:08 TS (Rec: 09/02/23 15:30 TS [id number]) PT Summary Assessment and Plan Potential Rehabilitation Potential Excellent Summary Impairments Pain,ROM,Strength,Balance,Bed Mobility,Transfers,Gait, Activity Tolerance Progress Towards Goals Slow Progress due to Pain,Slow Progress due to Activity Tolerance Assessment Summary Lanette is making some progress with her mobility but remains limited by pain and activity tolerance. She perform sit to stand from toilet CGA with use of FWW. She ambulated ~15'SBA with FWW and slow step to gait with minimal feet clearance. She performed bed mobility with spouse Zena. She requires max cueing for most mobility and for her hip precautions. Pt and spouse will benefit from continued education and practice with mobility before safe d/c home. Goals Bed Mobility Goal Standby Assistance Transfer Goal Standby Assistance Gait Goal Standby Assistance Gait Distance 150' Other Goals Ascend/descend 1 step w/fww and CGA Days to Meet Goals 3 Frequency of Treatment Frequency Of Treatment Twice a Day Treatment Plan Physical Therapy Treatment Plan Bed Mobility Training,Transfer Training,Gait Training, Therapeutic Exercise,Balance Retraining Other Recommendations and Next Treatment 1 step Focus Precautions Anterior Hip Precautions No Hip Extension,No Hip External Rotation Weight Bearing Status Weight Bearing Status Weight Bear as Tolerated Recommendations To Nursing Amount of Assist Needed 1 Person Assist Discharge Recommendations PT Discharge Recommendations Home with Assistance,Home Health Equipment Needed for Home Before Per OT Discharge Transportation Needs at Discharge Private Vehicle
--- NOTE | 2023-09-02 16:47 | PM.PN.1 ---
Subjective Subjective Interval history: Patient doing well today. Still arranging home DME through PT/OT. Sodium down some to 132. Exam Vital Signs (past 8 hours): - 09/02/23 08:58 09/02/23 11:00 09/02/23 11:05 Temperature 97.1 F L Pulse Rate 76 52 L 51 L Respiratory Rate 16 Blood Pressure 157/56 H 86/33 L 85/34 L Pulse Oximetry 95 100 100 Oxygen Flow Rate 0 0 0 09/02/23 11:10 09/02/23 11:15 09/02/23 11:44 Temperature Pulse Rate 70 Respiratory Rate Blood Pressure 124/43 L 127/44 L 124/44 L Pulse Oximetry Oxygen Flow Rate 09/02/23 11:44 09/02/23 14:00 Temperature Pulse Rate 102 H Respiratory Rate Blood Pressure 137/45 L 126/48 L Pulse Oximetry Oxygen Flow Rate Fraction of Inspired Oxygen 21 SaO2/FiO2 Ratio 452 Oxygen Delivery Method Nasal Cannula,CPAP Oxygen Flow Rate 0 Const General: cooperative Orientation: alert and awake HENNC Head: normal to inspection Ears: hearing grossly normal bilaterally Eyes General: appearance normal, both eyes and all related structures Neck Neck: normal visual inspection Resp Effort & Inspection: normal respiratory effort and able to speak in complete sentences Cardio Pulses: other (peripheral pulses present) Skin Lesions: no lesions Rashes: no rashes Neuro General: patient alert, patient awake and moves all extremities Psych Appearance: grossly normal Objective Labs 09/02/23 05:56 09/02/23 05:56 Labs: Laboratory Results - last 24 hr 09/02/23 09/02/23 09/02/23 05:40 05:56 08:11 WBC 7.7 RBC 3.56 L Hgb 9.9 L 9.9 L Hct 29.6 L 29.6 L MCV 83.2 MCH 27.8 MCHC 33.4 RDW 16.4 H Plt Count 95 L Neut % (Auto) 84.5 H Lymph % (Auto) 7.9 L [place] % (Auto) 7.5 Eos % (Auto) 0.0 L Baso % (Auto) 0.1 Neut # (Auto) 6500 Lymph # (Auto) 600 L [place] # (Auto) 600 Eos # (Auto) 0 Baso # (Auto) 0 Sodium 132 L Potassium 4.4 Chloride 103 Carbon Dioxide 25 BUN 16 Creatinine 0.84 Estimated GFR > 60 BUN/Creatinine Ratio 19.0 Glucose 109 Calcium 8.3 L Magnesium 1.3 L PFSH Medical History (Updated 09/01/23 @ 06:45 by Александр Kohler MD) Fatigue Ocular migraine Sinusitis, chronic Macular degeneration Osteoarthritis Benign essential HTN Hyperlipidemia Spinal stenosis of lumbar region Chronic GERD Obstructive sleep apnea of adult (~2000) Social History marital status: details: oliver Goldberg household members: spouse lives independently: Yes caregiver/support person: No housing: house pets and animals: No Smoking Status: Never smoker alcohol intake: current Assessment & Plan Assessment & Plan narrative: #Closed fracture of neck of left femur: - management per orthopedic surgery, underwent hip repair on 09/01 - PT/OT rec PT - DVT proph # hyponatremia, not present on admission -Na dropped from 138 to 132 -had received IVF so may be SIADH -start salt tabs # Obstructive sleep apnea of adult: - continue home CPAP #Hyperlipidemia: - continue home asa and statin. Code: Full, surrogate is patient's spouse DVT: ASA BID Dispo: Home with on 09/03.
[2023-09-02] MEDS: ACETAMINOPHEN 325 MG TABLET 650 MG PO (17:33)
[2023-09-02] MEDS: SODIUM CHLORIDE 1,000 MG TABLET 1000 MG PO (17:33)
[2023-09-02] MEDS: ATORVASTATIN 20 MG TABLET 40 MG PO (20:33)
[2023-09-02] MEDS: LATANOPROST 0.005% OPHTH 2.5 ML 1 EACH EYE-BOTH (20:33)
[2023-09-02] MEDS: SODIUM CHLORIDE 0.9% FLUSH 10 ML IV (20:33)
--- NOTE | 2023-09-02 23:54 | PC.NURSE ---
Patient is alert and oriented. States she has peripheral vision loss in right eye related to macular degeneration and has glaucoma in left eye so is legally blind. Noted right eyelid is reddened externally and bright red on inner lower lid; no drainage. Breath sounds CTA with RA sat of 91%; using CPAP for sleep. HRR. Denied nausea. BT hypoactive but is passing flatus. Voiding since catheter removed earlier today; denied dysuria. Is able to reposition herself in bed. Up to bathroom with walker and SBA but needs some assistance getting back into bed. CMS is intact bilaterally. Aquacel dressing to left hip is CDI. Wearing bilateral calf SCD's. Fall risk score is high and bed alarm is activated.
[2023-09-03] MEDS: OXYCODONE IR 5 MG TABLET PO (03:12)
[2023-09-03 06:48] LABS: Add Manual Diff / Slide Review NO; Basophils Absolute Auto 0 /uL (0-100); Basophils Percent Auto 0.2 % (0-2); Eosinophils Absolute Auto 0 /uL (0-450); Eosinophils Percent Auto 0.4 % (2-4); Hematocrit 30.2 % (36-46); Hemoglobin 10.1 g/dL (12.0-16.0); Lymphocytes Absolute Auto 800 /uL (1100-4500); Lymphocytes Percent Auto 9.6 % (25-40); Mean Corpuscular HGB Conc 33.5 % (30-36); Mean Corpuscular Hemoglobin 27.7 PG (26-34); Mean Corpuscular Volume 82.7 fL (80-100); Monocytes Absolute Auto 700 /uL (0-900); Monocytes Percent Auto 8.7 % (3-14); Neutrophils Absolute Auto 6500 /uL (1500-7000); Neutrophils Percent Auto 81.1 % (50-75); Platelet Count 102 X10^3/uL (150-400); Red Blood Cell Count 3.66 X10^6/uL (4.0-5.2); Red Cell Distribution Width 16.2 % (11.6-14.8)
[2023-09-03 07:13] LABS: BUN Creatinine Ratio 27.4 (6-22); Blood Urea Nitrogen 29 mg/dL (7-17); Calcium 8.9 mg/dL (8.4-10.2); Carbon Dioxide 27 mmol/L (22-32); Chloride 100 mmol/L (98-107); Estimated Glomerular Filt Rate 54 mL/min (>60); Glucose 112 mg/dL (80-110); HEMOLYSIS < 15 (0-50); Potassium 4.5 mmol/L (3.4-5.1); Sodium 131 mmol/L (137-145)
[2023-09-03 07:18] LABS: Magnesium 2.1 mg/dL (1.6-2.3)
[2023-09-03] MEDS: ASPIRIN EC 81 MG TABLET PO (07:39)
[2023-09-03] MEDS: DOCUSATE 100 MG CAPSULE PO (07:39)
[2023-09-03] MEDS: SODIUM CHLORIDE 1,000 MG TABLET 1000 MG PO (07:39)
[2023-09-03] MEDS: SODIUM CHLORIDE 0.9% 1,000 ML 1000 ML IV (07:39)
[2023-09-03] MEDS: SODIUM CHLORIDE 0.9% FLUSH 10 ML IV (07:39)
[2023-09-03 08:00] VITALS: BP 131/63; PULSE 98; RESP 18; TEMP 37.4; O2SAT 96
--- NOTE | 2023-09-03 09:00 | PT.IPTN ---
Current Diagnoses Hyperlipidemia, unspecified (08/31/23) Obstructive sleep apnea (adult) (pediatric) (08/31/23) Essential (primary) hypertension (08/31/23) Gastro-esophageal reflux disease without esophagitis (08/31/23) Spinal stenosis, lumbar region without neurogenic claudication (08/31/23) Fracture of unspecified part of neck of left femur, initial encounter for closed fracture (08/31/23) Surgery Performed Operation Date: 09/01/23 17:30 Actual Procedures p total hip arthroplasty(Left) - Chris Walker MD Physical Therapy Treatment Note M2 PT-IP Current Condition Start: 09/02/23 13:27 Freq: NEEDED Status: Active Protocol: Document 09/02/23 13:20 KJ (Rec: 09/02/23 13:40 KJ [id number]) Physical Therapy Current Condition Current Condition Evaluation Date 09/02/23 Treatment Diagnosis Impaired mobility s/p L hip fx w/total hip arthroplasty anterior approach Onset Date 08/31/23 M3 PT-IP Subjective Start: 09/02/23 13:27 Freq: NEEDED Status: Active Protocol: Document 09/03/23 10:23 TS (Rec: 09/03/23 10:56 TS [id number]) Subjective Physical Therapy Visit Type Type Treatment Note Visit Start Time 09:00 Visit Stop Time 09:40 Total Visit Minutes 40 Notes Spouse in room Number of DIRECTOR OF RESEARCH Visits 2 Physical Therapy Visit Comments Patient Comments Pt found resting in chair, reports some increase in pain during the night, is agreeable to PT. Therapy Pain Assessment Pain When Pain Assessed During Mobility Pain Present Pain Present Pain Reported M4 PT-IP Mobility and Gait Start: 09/02/23 13:27 Freq: NEEDED Status: Active Protocol: Document 09/03/23 10:23 TS (Rec: 09/03/23 10:56 TS [id number]) PT-Transfer Assessment Sit to and From Stand Sit to and from Stand Contact Guard Assistance,1 Person Assistance,Use of Upper Extremities Equipment Transfer Assistive Device Gait Belt,Front Wheeled Walker Orthotic/Prosthetic Devices or Brace: No Comments Mobility Comments Spouse donned gait belt prior to mobility. Sit to stand from chair CGA from spouse with use of FWW, pt has good standing balance with no retroleaning. She ambulated in room ~100'SBA with FWW, pt cued for keeping FWW on ground and to lead with L side. She performed steps x4 with use of SPC and Fide with handheld assist from spouse. Pt unsteady using cane and spouse assistance but could complete stairs with no LOB. She performed stairs x2 with FWW CGA from spouse, pt is more stable. Pt was left in chair, all needs met, spouse in room, chair alarm on. Gait Assessment Gait Gait Assistance Required: Contact Guard Assist Distance (Feet) 100 Able to Maintain Weight Bearing Status Yes During Gait Assistive Devices Assistive Device Gait Belt,Front Wheeled Walker Orthotic/Prosthetic Devices or Brace: No Gait Deviations General Gait Pattern Decreased Stride Length, Decreased Feet Clearance,Step- to Gait Factors Limiting Gait Function Factors Limiting Gait Function Decreased Activity Tolerance, Decreased Strength Comments Gait Comments See mobility comments Stair Climbing Assessment Evaluation Level of Assist On Stairs Contact Guard Assistance, Minimal Assistance Devices Stair Climbing Assistive Devices Straight Cane,Front Wheel Walker Technique/Endurance Stair Climbing Direction Ascend and Descend Stair Climbing Technique Step to Step Number of Steps Climbed 6 Comments Stair Climbing Comments Pt has 3 steps at home, top step can use FWW, bottom two steps requires cane or handheld assist due to no rails. She performed x4 steps with SPC and handheld assist Fide, is somewhat unsteady with use of cane but did complete steps with no LOB. She performed x2 steps with FWW CGA with cues for sequencing. PT-Balance Assessment Sitting Balance and Reactions Static Sitting Balance Ability Good Dynamic Sitting Balance Ability Good Standing Balance and Reactions Static Standing Balance Ability Good Dynamic Standing Balance Ability Fair M5 PT-IP Objective Assessments Start: 09/02/23 13:27 Freq: NEEDED Status: Active Protocol: Document 09/02/23 13:20 KJ (Rec: 09/02/23 13:40 KJ [id number]) Orientation Orientation/Cognition Level of Alertness Alert Orientation Name,Age,Birthday,Month, Situation Language Function Ability No Deficits Noted Safety Awareness Understands Safety Issues Memory Description No Deficits Noted Gross Range of Motion Upper Extremity ROM Assessment Within Functional Limits Lower Extremity ROM Assessment Left Impaired Impairments decreased in hip and knee Strength Lower Extremity Strength Assessment Left Impaired Knee knee ext 3-/5 M6 PT-IP Treatment Start: 09/02/23 13:27 Freq: NEEDED Status: Active Protocol: Document 09/03/23 10:23 TS (Rec: 09/03/23 10:56 TS [id number]) Physical Therapy Treatment Education Education Provided Precautions,Weight Bearing Status,Safety M7 PT-IP Assessment and Plan Start: 09/02/23 13:27 Freq: NEEDED Status: Active Protocol: Document 09/03/23 10:23 TS (Rec: 09/03/23 10:56 TS [id number]) PT Summary Assessment and Plan Potential Rehabilitation Potential Excellent Summary Impairments Pain,ROM,Strength,Balance,Bed Mobility,Transfers,Gait, Activity Tolerance Progress Towards Goals Slow Progress due to Pain,Slow Progress due to Activity Tolerance Assessment Summary Lanette continues to make progress with her mobility. She progressed her gait to ~ 100' in room SBA with FWW. She progressed to stairs x4 with use of SPC and handheld assist and x2 with FWW. Pt is somewhat unsteady when using cane and recommended pt have a second person along with her spouse to assist her into her home, pt and spouse agreed. PT is recommending pt return home with assist and HHPT. Goals Bed Mobility Goal Standby Assistance Transfer Goal Standby Assistance Gait Goal Standby Assistance Gait Distance 150' Other Goals Ascend/descend 1 step w/fww and CGA Days to Meet Goals 3 Frequency of Treatment Frequency Of Treatment Twice a Day Treatment Plan Physical Therapy Treatment Plan Bed Mobility Training,Transfer Training,Gait Training, Therapeutic Exercise,Balance Retraining Other Recommendations and Next Treatment 1 step Focus Precautions Anterior Hip Precautions No Hip Extension,No Hip External Rotation Weight Bearing Status Weight Bearing Status Weight Bear as Tolerated Recommendations To Nursing Amount of Assist Needed 1 Person Assist Discharge Recommendations PT Discharge Recommendations Home with Assistance,Home Health Equipment Needed for Home Before obtained FWW and commode. Discharge Recommended pt obtain SPC and a second person to assist into home up stairs. Transportation Needs at Discharge Private Vehicle
[2023-09-03 10:39] LABS: BUN Creatinine Ratio 25.5 (6-22); Blood Urea Nitrogen 26 mg/dL (7-17); Calcium 8.9 mg/dL (8.4-10.2); Carbon Dioxide 23 mmol/L (22-32); Chloride 102 mmol/L (98-107); Estimated Glomerular Filt Rate 56 mL/min (>60); Glucose 142 mg/dL (80-110); HEMOLYSIS < 15 (0-50); Potassium 4.6 mmol/L (3.4-5.1); Sodium 131 mmol/L (137-145)
--- NOTE | 2023-09-03 11:11 | PM.DS.1 ---
History of Present Illness History of Present Illness Date Patient Seen: 09/01/23 Time Patient Seen: 17:48 Chief complaint: Hip pain Narrative: 77-year-old female seen in evaluation for left hip pain. She sustained a fall while hiking at dissection past. She had to be carried for a mile on a stretcher. She was admitted here and evaluated by the Internal Medicine team who cleared her for surgery. She does not use ambulatory aids at baseline. She is very active for a 77-year-old female patient. She enjoys cruises and enjoys going on hikes. She complains of pain in the left hip. It is exacerbated by movement and improved with rest Discharge Providers Provider Date of admission: 08/31/23 21:03 Discharge Date: 09/03/23 Primary care physician: Antonio Dueñas MD Consults: 08/31/23 20:35 Consult to Orthopedic Surgery Stat Comment: Consulting Provider: Chris Walker Reason for consultation: Hip fracture Has provider been notified: Yes 09/01/23 21:57 Consult to Discharge Planning Routine Comment: Consult to Occupational Therapy Evaluate & Treat Comment: Physician Instructions: Evaluate and treat Consult to Physical Therapy Evaluate & Treat Comment: Mobility Physician Instructions: Front Wheeled Walker 09/02/23 00:29 Consult to DENTAL OFFICE RECEPTIONIST - Drapery Cutter Machine Routine Comment: scored low risk suicide screening Discharge provider: Enoch Garcia DO Summary Hospital Course Discharge Diagnosis: #Closed fracture of neck of left femur: - management per orthopedic surgery, underwent hip repair on 09/01 - PT/OT rec PT - DVT proph with ASA BID # hyponatremia, not present on admission -Na dropped from 138 to 132 -had received IVF so may be SIADH -start salt tabs -Na improved to 131 # Obstructive sleep apnea of adult: - continue home CPAP #Hyperlipidemia: - continue home asa and statin. Hospital Course: Admitted for fall and left hip fracture. Repaired by ortho. Had some hyponatremia with IVF so started on salt tabs. Na stable at 131 on dc. PT arranged. Exam Vital Signs (past 8 hours): - 09/03/23 08:00 Temperature 99.3 F Pulse Rate 98 H Respiratory Rate 18 Blood Pressure 131/63 Pulse Oximetry 96 Fraction of Inspired Oxygen 21 SaO2/FiO2 Ratio 452 Oxygen Delivery Method Room Air Oxygen Flow Rate 0 Const General: cooperative Orientation: alert and awake HENMT Head: normal to inspection Ears: hearing grossly normal bilaterally Eyes General: appearance normal, both eyes and all related structures Neck Neck: normal visual inspection Resp Effort & Inspection: normal respiratory effort and able to speak in complete sentences Cardio Pulses: other (peripheral pulses present) Skin Lesions: no lesions Rashes: no rashes Neuro General: patient alert, patient awake and moves all extremities Psych Appearance: grossly normal Objective Labs 09/03/23 06:20 09/03/23 10:07 Labs: Laboratory Results - last 24 hr 09/03/23 09/03/23 06:20 10:07 WBC 8.0 RBC 3.66 L Hgb 10.1 L Hct 30.2 L MCV 82.7 MCH 27.7 MCHC 33.5 RDW 16.2 H Plt Count 102 L Neut % (Auto) 81.1 H Lymph % (Auto) 9.6 L [place] % (Auto) 8.7 Eos % (Auto) 0.4 L Baso % (Auto) 0.2 Neut # (Auto) 6500 Lymph # (Auto) 800 L [place] # (Auto) 700 Eos # (Auto) 0 Baso # (Auto) 0 Sodium 131 L 131 L Potassium 4.5 4.6 Chloride 100 102 Carbon Dioxide 27 23 BUN 29 H 26 H Creatinine 1.06 H 1.02 Estimated GFR 54 L 56 L BUN/Creatinine Ratio 27.4 H 25.5 H Glucose 112 H 142 H Calcium 8.9 8.9 Magnesium 2.1 [facility] Medical History (Updated 09/01/23 @ 06:45 by Александр Kohler MD) Fatigue Ocular migraine Sinusitis, chronic Macular degeneration Osteoarthritis Benign essential HTN Hyperlipidemia Spinal stenosis of lumbar region Chronic GERD Obstructive sleep apnea of adult (~2000) Social History marital status: details: to Yusuf household members: spouse lives independently: Yes caregiver/support person: No housing: house pets and animals: No Smoking Status: Never smoker alcohol intake: current Discharge Plan Discharge Plan Patient Disposition: Home Health Service Provider Discharge Comment: You were admitted for a hip fracture which ortho repaired. You will now be on twice daily baby aspirin for 4 weeks. I've sent some pain meds for you too. Home health will do PT at home. Discharge orders & Medications Prescriptions: New aspirin 81 mg Tablet,Delayed Release (Dr/Ec) 81 mg PO BID 28 Days Qty: 56 0RF oxycodone 5 mg Tablet 5 mg PO Q3H PRN (Reason: Pain, Moderate (4-6)) Qty: 20 0RF Continued atorvastatin 40 mg tablet 40 mg PO BEDTIME latanoprost 0.005 % drops 1 drp EYE-BOTH BEDTIME vit C,E,Zn,Jj-tyujg5-wnf-zeax 250-2.5-0.5 mg capsule 1 cap PO DAILY Discontinued aspirin 81 mg tablet,chewable 81 mg PO DAILY Follow up/Referrals: Antonio Dueñas MD [Primary Care Provider] - 09/16/23 3:15 pm (Appt:09/16 @ 3:[address] Dueñas ) Chris Walker MD [Physician] - 09/16/23 8:30 am (09/16 check in @ 8:15 for a 8:[address] Walker @ [id number] [place] for wound check and repeat imaging.) Diet/Activity/Treatments Activity: Weightbearing as tolerated to left leg. Skin/Wound/Dressing Care Dressing: May shower. Leave Aquacel dressing in place until follow up in office. No bathing or otherwise soaking incision. Call the office if the dressing becomes saturated inside. Visit Report/Discharge Packet Instructions: DI for Hip Replacement Stand Alone Forms: Patient Portal/API, Stroke Signs & Symptoms, Surgery Discharge Discharge Data Primary Care Provider: Antonio Dueñas
--- NOTE | 2023-09-03 11:32 | OT.IP.TRT ---
Current Diagnoses Hyperlipidemia, unspecified (08/31/23) Obstructive sleep apnea (adult) (pediatric) (08/31/23) Essential (primary) hypertension (08/31/23) Gastro-esophageal reflux disease without esophagitis (08/31/23) Spinal stenosis, lumbar region without neurogenic claudication (08/31/23) Fracture of unspecified part of neck of left femur, initial encounter for closed fracture (08/31/23) Surgery Performed Operation Date: 09/01/23 17:30 Actual Procedures p total hip arthroplasty(Left) - Chris Walker MD Occupational Therapy Treatment Note M2 OT-IP Current Condition Start: 09/02/23 14:59 Freq: Status: Active Protocol: Document 09/02/23 13:32 [facility] (Rec: 09/02/23 15:36 [facility] [id number]) Occupational Therapy Current Condition Current Condition Evaluation Date 09/02/23 Treatment Diagnosis S/P L BALTAZAR anterior precautions Diagnosis Onset Date 08/31/23 Post Operative Precautions Anterior Hip Precautions No Hip Extension,No Hip External Rotation M3 OT- IP Subjective and Pain Start: 09/02/23 14:59 Freq: Status: Active Protocol: Document 09/03/23 12:36 [facility] (Rec: 09/03/23 12:53 [facility] [id number]) OT- Subjective Occupational Therapy Visit Type Type Treatment Note Visit Start Time 10:38 Visit Stop Time 11:32 Total Visit Minutes 54 Occupational Therapy Visit Comments Patient Comments Pt wanting to shower and able to go over caregiver training with pt's . Patient/Caregiver Goals To go home. OT Pain Assessment Pain When Pain Assessed At Rest Pain Present Pain Present Pain Reported Location Left Knee Intensity 3 Scale Used Numeric (0 - 10) M4 OT- IP ADL's Start: 09/02/23 14:59 Freq: Status: Active Protocol: Document 09/03/23 12:36 [facility] (Rec: 09/03/23 12:53 [facility] [id number]) OT [id number] General Evaluation Self-Feeding Ability Independent OT ADL-Grooming General Evaluation Grooming Ability Independent Comments OT Grooming Comments While seated. OT ADL-Oral Care Comments Oral Care Comments Not performed. OT ADL-Dressing General Eval Lower Body Dressing Ability Moderate Assistance Areas Needing Assistance Socks,Shoes Comments OT Dressing Comments Pt needing assist rekha socks and pants over her feet. Able to practice use of cryptographic technician to assist. OT ADL-Toileting Comments OT Toileting Comments Educated pt to be mindful of her LLE positioning while wiping and that standing would be easier to wipe this time. OT ADL-Bathing Bathing Type Bathing Type Shower General Evaluation Bathing Ability Moderate Assistance Areas Needing Assistance Wash/Dry Upper Body,Wash/Dry Perineal Area,Wash/Dry Lower Extremities Comments OT Bathing Comments Pt will benefit from a tub bench and assist at home. M5 OT- IP IADL's Start: 09/02/23 14:59 Freq: Status: Active Protocol: Document 09/02/23 13:32 [facility] (Rec: 09/02/23 15:36 [facility] [id number]) OT-Instrumental Activities of Daily Living Deficits IADL Deficits Identified Deficits Home Safety Awareness Awareness of Need for Assistance at Home Good Awareness Medication Management Medication Management Caregiver Provides Supervision Money Management Money Management Comments Pt has autopay for her bills. Meal Preparation Meal Preparation Caregiver Provides Assist Meal Preparation Comments Pt's will be able to assist. Mental Health Social Worker Mental Health Social Worker Comments Pt's will be able to assist. M6 OT- IP Functional Cognition Start: 09/02/23 14:59 Freq: Status: Active Protocol: Document 09/03/23 12:36 [facility] (Rec: 09/03/23 12:53 [facility] [id number]) Cognitive Factors Limiting Selfcare Function Cognitive Comments Cognitive Assessment Comments Pt still needing some reminders for her hip precautions. M7 OT- IP Mobility and Balance Start: 09/02/23 14:59 Freq: Status: Active Protocol: Document 09/03/23 12:36 [facility] (Rec: 09/03/23 12:53 [facility] [id number]) OT-Transfer Assessment Sit to and From Stand Sit to and from Stand Contact Guard Assistance, Moderate Assistance Transfers Transfer Ability Minimal Assistance Technique Transfer Destination Chair,Shower Stall,Toilet Transfer Technique Stand Step Pivot Devices Transfer Assistive Devices Gait Belt,Front Wheeled Walker Comments Mobility Comments MODA to stand from lower surfaces to the FWW. After getting to her feet, SBA. RAYMUNDO to help step over threshold of the shower with the FWW. Pt 's able to assist pt for mobility needs. OT- Balance Assessment Sitting Balance and Reactions Static Sitting Balance Ability Normal Dynamic Sitting Balance Ability Good Standing Balance and Reactions Static Standing Balance Ability Good Dynamic Standing Balance Ability Fair M9 OT- IP Assessment and Plan Start: 09/02/23 14:59 Freq: Status: Active Protocol: Document 09/03/23 12:36 [facility] (Rec: 09/03/23 12:53 [facility] [id number]) OT Summary Assessment and Plan Potential Rehabilitation Potential Good Analytic Complexity at Evaluation Low Summary OT Impairments Pain,Balance,Functional Mobility,Grooming,Dressing, Toileting,Bathing,Toilet Transfers,Shower Transfers, Activity Tolerance Progress Towards Goals Progressing Toward Goals Assessment Summary Pt doing much better today. Pt 's present for caregiver training and able to assist pt for ADl and mobility needs. Pt to go home with her to assist and have home health therapy and bath aid. Pt's able to get FWW, tub bench amd BSC. Goals Grooming Goal Independent Dressing Goal Independent,Long Handled Shoe Horn,[place] Patching Machine Operator,Sock Aid Toileting Goal Independent Bathing Goal Standby Assistance Toilet Transfer Goal Independent Shower Transfer Goal Independent Patient/Caregiver Education Goal Caregiver Independent Assisting Patient Days to Meet Goals 9 Frequency of Treatment Frequency Of Treatment Once a Day Treatment Plan OT Treatment Plan ADL Training,Functional Mobility,Patient/Family Education,Discharge Planning Discharge Recommendations OT Discharge Recommendations Home with Assistance,Home Health Home Equipment Needs BSC, tub bench, LB dressing equipment, tub bench Transportation Needs at Discharge Private Vehicle
--- NOTE | 2023-09-03 11:44 | CM.DPC ---
DCP Cont. Reviewed EMR and team rounds for status updates. Pt is all set to d/c home today, spouse is present at bedside ready to transport. This ORDNANCE KEEPER took in the Home Health choice list for her to choose her preference. Sent referral to [facility], per pt's request. No furher DCP needs identified at this time.
--- NOTE | 2023-09-03 13:48 | PC.NURSE ---
Pt is dressed and ready for discharge home with Spouse. IV's have been removed. Went over d/c instructions with Pt and Spouse-discussed d/c meds, time of last dose, reviewed stroke education, s/s of infection, constipation prevention secondary to opioid use, no driving until cleared by MD, showering, wound care, hip precautions, and follow up appointment. Pt and Spouse denied further questions and Pt was taken out via w/c by FOOTWEAR SALES LEADER to POV with Spouse and all belongings.
== END 2023-09-03 13:50 | disposition home or self-care (01) | DRG 521 ==
LOC: ED 20:26 → AC 21:04
PROVIDERS: Orthopaedic Surgery Adult Reconstructive Orthopaedic Surgery; Student in an Organized Health Care Education/Training Program; Admitting Provider Internal Medicine; Emergency Provider Emergency Medicine; PCP Family Medicine; Referring Provider Emergency Medicine; Visit Provider Internal Medicine
PROC: 0SRS0JZ Replacement of Left Hip Joint, Femoral Surface with Synthetic Substitute, Open Approach (ICD-10-PCS; CPT 27125; principal; 2023-09-01 17:30)
DX: S72.002A Fracture of unspecified part of neck of left femur, initial encounter for closed fracture (principal); J96.01 Acute respiratory failure with hypoxia; E87.1 Hypo-osmolality and hyponatremia; G47.33 Obstructive sleep apnea (adult) (pediatric); E78.5 Hyperlipidemia, unspecified; K21.9 Gastro-esophageal reflux disease without esophagitis; W01.0XXA Fall on same level from slipping, tripping and stumbling without subsequent striking against object, initial encounter; Y93.01 Activity, walking, marching and hiking
CPT/HCPCS: 36415; 71045; 71101; 72170; 73502; 76000; 80048; 83735; 85014; 85018; 85025; 96374; 96375; 97110; 97116; 97161; 97165; 97530; 97535; 99285; C1776; C9113; J0171; J0690; J1100; J2270; J2405; J2704; J3010; J3475; J7613

== ENCOUNTER → 2024-04-26 16:31 | Outpatient (CLI) | payer MEDICARE, OTHER, SELFPAY ==
[2023-08-31 22:10] VITALS: BMI 27.4
--- NOTE | 2024-04-26 16:34 | DI.RAD.S_ITS ---
PROCEDURE: XR HIP W PEL IF DONE CANDIDO MIN 4V INDICATIONS: HIP PAIN TECHNIQUE: AP pelvis with lateral view(s) of the bilateral hip(s). COMPARISON: [facility], CR, XR HIP W PEL IF DONE LT 2V, 09/01/2023, 20:54. FINDINGS: Bones: There is prior left total hip arthroplasty with surgical hardware in place. No evidence of hardware loosening or failure. Left hip alignment is anatomic. Moderate right hip joint osteoarthritic changes are seen. No evidence of avascular necrosis of femoral head. No fractures or dislocations. Pelvic ring appears intact. No suspicious bony lesions. Soft tissues: The visualized bowel gas pattern is normal. No suspicious soft tissue calcifications. IMPRESSION: 1. Prior left total hip arthroplasty with stable anatomic left hip alignment. No acute fracture or dislocation. No gross hardware loosening or failure. 2. Moderate right hip joint osteoarthritis. No fracture or dislocation. No evidence of avascular necrosis. Dictated by: Ricki Vazquez M.D. on 04/27/2024 at 9:27 Approved by: Ricki Vazquez M.D. on 04/27/2024 at 9:28
== END ==
PROVIDERS: PCP Family Medicine; Referring Provider Family Medicine; Visit Provider Family Medicine
DX: M16.11 Unilateral primary osteoarthritis, right hip (principal); Z96.642 Presence of left artificial hip joint; M25.559 Pain in unspecified hip
CPT/HCPCS: 73522

== ENCOUNTER → 2024-07-23 14:11 | Outpatient (CLI) | payer MEDICARE, OTHER, SELFPAY ==
[2023-08-31 22:10] VITALS: BMI 27.4
--- NOTE | 2024-07-23 14:12 | DI.ECHO.S_ITS ---
[facility] : : [id number] : : [place] : : [id number] : : Phone: [phone] Echocardiogram Report + + :Name: KELSEY WOLF Study Date: 07/23/2024 Height: 69 in : :[facility] ReadingLocation: Weight: 192 lb : : Gender: Female BSA: 2.0 m2 : :: 1945 Age: 78 yrs BP: 179/87 mmHg: :Reason For Study: STENOSIS O F ARTERY : :Ordering Physician: MYRIAM, : :YOUNG Aguirre Performed By: Mina Nunez : :Referring: YOUNG MIGUEL : + + Interpretation Summary The patient was in sinus bradycardia with heart rates between 41-55 bpm during the exam. The left ventricle is normal in size. Left ventricular ejection fraction is estimated to be 60 +/- 5%. The right ventricle is normal in size and function. There is mild to moderate mitral regurgitation. There is mild to moderate tricuspid regurgitation. The right ventricular systolic pressure is estimated to be at least 40 mmHg based on an estimated right atrial pressure of 15 mm Hg. Mild atherosclerotic plaque(s) in the aortic arch. Procedure: A two-dimensional transthoracic echocardiogram with color flow and Doppler was performed. The study quality was technically good. There is no prior echocardiogram noted for this patient. The patient was in sinus bradycardia with heart rates between 41-55 bpm during the exam. Left Ventricle: The left ventricle is normal in size. There is normal left ventricular wall thickness. There is no thrombus. A false chord is noted (normal variant). Left ventricular ejection fraction is estimated to be 60 +/- 5%. The left ventricular ejection fraction is normal. There are no focal wall motion abnormalities. MV E/A: 1.5 Med Peak E' Servando: 6.9 cm/sec E/E' med: 11.4. Right Ventricle: The right ventricle is normal in size and function. Atria: The left atrial size is normal. Right atrial size is normal. There is no Doppler evidence for an interatrial shunt. Mitral Valve: There is mild mitral annular calcification. There is mild calcification extending into the subvalvular apparatus. There is mild to moderate mitral regurgitation. Aortic Valve: The aortic valve is trileaflet. The aortic valve is moderately calcified. There is discrete nodular thickening of the right coronary cusp. There is no aortic valve stenosis. No aortic regurgitation is present. Tricuspid Valve: The tricuspid valve is normal. There is mild to moderate tricuspid regurgitation. The right ventricular systolic pressure is estimated to be at least 40 mmHg based on an estimated right atrial pressure of 15 mm Hg. Pulmonic Valve: The pulmonic valve is not well visualized. There is trace pulmonic regurgitation. Great Vessels: The aortic root is normal size. The dimensions of the ascending aorta are normal. Mild atherosclerotic plaque(s) in the aortic arch. The pulmonary artery is normal size. The IVC is dilated (diameter is greater than 2.1 cm) and it collapses less than 50% with a sniff. This suggests a high right atrial pressure of 15 mm Hg. Pericardium/ Pleura There is no pericardial effusion. There is an anterior echo-free space consistent with a fat pad. There is no pleural effusion. MMode/2D Measurements & Calculations LVIDd: 4.8 cm LVOT diam: 1.9 cm LVIDs: 2.4 cm Ao root diam: 3.1 cm FS: 49.3 % asc Aorta Diam: 3.0 cm EPSS: 0.49 cm Ao Arch Diam (Prox Trans): 2.5 cm IVSd: 0.93 cm LVPWd: 0.97 cm LV seymour. diameter/BSA (cm/m^2): 2.4 LV sys. diameter/BSA (cm/m^2): 1.2 LA A2 area: 17.7 cm2 RA long axis: 4.4 cm LA A4 area: 20.5 cm2 RA area: 14.1 cm2 LA length (vol): 5.8 cm RA vol: 38.2 ml LA vol: 53.3 ml RA : 18.8 ml/m2 LA vol index: 26.3 ml/m2 IVC diam: 3.0 cm RVD1 (basal): 3.6 cm RVD2 (mid): 2.8 cm TAPSE: 2.7 cm Doppler Measurements & Calculations Ao V2 max: 152.5 cm/sec LVOT Max Servando: 121.0 cm/sec Ao V2 mean: 101.3 cm/sec LV V1 max P.9 mmHg Ao max P.3 mmHg LV V1 VTI: 31.1 cm Ao mean P.8 mmHg ALLI(I,D): 2.5 cm2 Ao V2 VTI: 37.0 cm ALLI(V,D): 2.3 cm2 sev ratio: 0.84 ALLI indexed to BSA (cm^2/m^2): 1.2 MV E max servando: 78.5 cm/sec TR max servando: 252.0 cm/sec MV A max servando: 53.6 cm/sec TR max P.5 mmHg MV E/A: 1.5 PA V2 max: 73.9 cm/sec Med Peak E' Servando: 6.9 cm/sec PA V2 mean: 58.7 cm/sec E/E' med: 11.4 PA mean P.5 mmHg Lat Peak E' Servando: 9.7 cm/sec PA pr(Accel): 20.8 mmHg E/E' lat: 8.1 E/e' average: 9.7 MV dec time: 0.27 sec SV(LVOT): 91.2 ml Reading Physician:12:12 PM
--- NOTE | 2024-07-23 14:13 | DI.US.S_ITS ---
PROCEDURE: US CAROTID DOPPLER BI INDICATIONS: OCCLUSION,STENOSIS OF ARTERY TECHNIQUE: Color and pulse Doppler interrogation was performed of both carotid systems, with image documentation and velocity measurements. COMPARISON: [facility], , US CAROTID DOPPLER BI, 11/29/2021, 9:09. FINDINGS: Stenosis calculations are based on SRU (Society of Radiologists in Ultrasound) criteria. Right side: Brachial blood pressure: 164/71 mm Hg. Common carotid artery peak systolic velocity: 92 cm/sec. Internal carotid artery peak systolic velocity: 126 cm/sec. Previously measures 90 centimeters/second. Internal carotid artery end diastolic velocity: 29 cm/sec. External carotid artery peak systolic velocity: 234 cm/sec. Previously measures 132 centimeters/second. ICA/CCA peak systolic ratio: 1.4. Chavez scale imaging description: Moderate atherosclerotic plaques are seen involving proximal right internal carotid artery. Percent internal carotid artery stenosis: 50-69%. Vertebral artery: Flow direction is antegrade. Left side: Brachial blood pressure: 162/72 mm Hg. Common carotid artery peak systolic velocity: 103 cm/sec. Internal carotid artery peak systolic velocity: 171 cm/sec. Internal carotid artery end diastolic velocity: 25 cm/sec. External carotid artery peak systolic velocity: 147 cm/sec. ICA/CCA peak systolic ratio: 1.7. Chavez scale imaging description: Moderate atherosclerotic plaques are noted involving proximal left internal carotid artery. Percent internal carotid artery stenosis: 50-69%. Vertebral artery: Flow direction is antegrade. IMPRESSION: 1. Finding is consistent with 50-69% stenosis involving bilateral proximal internal carotid arteries worse on the left side. 2. Antegrade flow is seen in bilateral vertebral arteries. Dictated by: Ricki Vazquez M.D. on 07/23/2024 at 16:34 Approved by: Ricki Vazquez M.D. on 07/23/2024 at 16:36
== END ==
PROVIDERS: PCP Family Medicine; Referring Provider Family Medicine; Visit Provider Family Medicine
DX: I65.23 Occlusion and stenosis of bilateral carotid arteries (principal); I08.1 Rheumatic disorders of both mitral and tricuspid valves; I70.0 Atherosclerosis of aorta
CPT/HCPCS: 93306; 93880

== ENCOUNTER 2024-09-02 19:50 | Emergency (ER) | payer MEDICARE, OTHER, SELFPAY ==
[2023-08-31 22:10] VITALS: BMI 27.4
[2024-09-02 19:57] VITALS: BP 167/72; PULSE 65; RESP 14; TEMP 36.4; O2SAT 95; BMI 28.0
--- NOTE | 2024-09-02 20:20 | DI.RAD.S_ITS ---
PROCEDURE: XR ELBOW LT MIN 3V INDICATIONS: fall with pain TECHNIQUE: 3 views of the elbow were acquired. COMPARISON: None. FINDINGS: Bones: No fractures or dislocations. No suspicious bony lesions. Soft tissues: No elbow joint effusion. No suspicious soft tissue calcifications. IMPRESSION: No visualized acute fracture or dislocation. However, if clinical concern and/or pain persist, short interval imaging followup in 7-10 days is recommended, as occult injury cannot be definitively excluded. Dictated by: Chante Lebron M.D. on 09/02/2024 at 21:00 Approved by: Chante Lebron M.D. on 09/02/2024 at 21:00
--- NOTE | 2024-09-02 20:20 | DI.RAD.S_ITS ---
PROCEDURE: XR HIP W PEL IF DONE LT 2V INDICATIONS: fall with pain TECHNIQUE: AP pelvis with lateral view(s) of the left hip(s). COMPARISON: [facility], , XR HIP W PEL IF DONE CANDIDO 3TO4V, 04/26/2024, 16:49. FINDINGS: Bones: No fractures or dislocations. Pelvic ring appears intact. No suspicious bony lesions. Left hip arthroplasty. Hardware is intact without hardware fracture or periprosthetic lucency to suggest loosening. Alignment is stable. Degenerative changes are present within the right hip. Soft tissues: The visualized bowel gas pattern is normal. No suspicious soft tissue calcifications. IMPRESSION: No visualized acute fracture or dislocation. However, if clinical concern and/or pain persist, short interval imaging followup in 7-10 days is recommended, as occult injury cannot be definitively excluded. Dictated by: Chante Lebron M.D. on 09/02/2024 at 21:00 Approved by: Chante Lebron M.D. on 09/02/2024 at 21:02
--- NOTE | 2024-09-02 21:28 | ED_ITS ---
HPI - Fall General Chief Complaint: Fall Stated Complaint: fall, numb feet, lt sided pain Time Seen by Provider: 09/02/24 20:19 Source: patient Mode of arrival: Wheelchair History of Present Illness HPI Narrative: patient is a 78-year-old female. Not on anticoagulation. Was waiting to be seated at a local restaurant. She stated that she saw a chair open up so she went to go sit down in the chair. She states she lost her balance and fell on her left side injuring her left hip left elbow and left shoulder. Did not hit her head. No loss of consciousness.Members of the restaurant staff helped her up. She did take Tylenol. She did sit down and eat her meal. Has been ambulatory. No vomiting. No headache. No chest pain, shortness of breath, abdominal pain. She stated that she decided to come in to be evaluated she also reports tingling in both of her feet. Related Data Home Medications Medication Instructions Recorded Confirmed vit 1 cap PO DAILY 05/10/21 09/01/23 C,E,zinc,Er-qujai-6-lutein-zeaxanthin 250 mg-2.5 mg-0.5 mg capsule atorvastatin 40 mg tablet 40 mg PO BEDTIME 08/31/23 08/31/23 latanoprost 0.005 % eye drops 1 drp EYE-BOTH BEDTIME 08/31/23 08/31/23 Previous Rx's Medication Instructions Recorded oxycodone 5 mg tablet 5 mg PO Q3H PRN Pain, Moderate 09/03/23 (4-6) #20 tabs Allergies Allergy/AdvReac Type Severity Reaction Status Date / Time No Known Drug Allergies Allergy Verified 09/01/23 17:04 Review of Systems Review of Systems Narrative: see HPI Patient History Medical History Fatigue Ocular migraine Sinusitis, chronic Macular degeneration Osteoarthritis Benign essential HTN Hyperlipidemia Spinal stenosis of lumbar region Chronic GERD Obstructive sleep apnea of adult (~2000) Social History marital status: details: oliver Yusuf household members: spouse lives independently: Yes caregiver/support person: No housing: house pets and animals: No Smoking Status: Never smoker alcohol intake: current Smoking Status: Never smoker alcohol intake frequency: holidays/special occasions only Substance Use Type: does not use Exam Initial Vital Signs Initial Vital Signs: Vital Signs Temperature 97.5 F L 09/02/24 19:57 Pulse Rate 65 09/02/24 19:57 Respiratory Rate 14 09/02/24 19:57 Blood Pressure 167/72 H 09/02/24 19:57 Pulse Oximetry 95 09/02/24 19:57 Oxygen Delivery Method Room Air 09/02/24 19:57 Const General: cooperative, comfortable and No ill appearing HENMT Head: normal to inspection and normocephalic Skin General: no rashes or lesions noted Neuro Sensory Exam: no sensory deficits noted Extrem Other: No gross deformities. Full range of motion of left elbow and leftShoulder. Pelvis is stable. Patient was ambulatory. Left knee left ankle unremarkable. Course Orders Ordered: ED Orders 09/02/24 20:20 XR elbow LT min 3V Stat XR hip w pel if done LT 2V Stat Vital Signs Vital signs: Vital Signs - 8 hr 09/02/24 19:57 09/02/24 21:37 Temperature 97.5 F L Pulse Rate 65 55 L Respiratory Rate 14 16 Blood Pressure 167/72 H 140/63 Pulse Oximetry 95 96 Oxygen Delivery Method Room Air Room Air MDM - Fall Imaging Data Hip x-ray: Radiologist's Impression: PROCEDURE: XR HIP W PEL IF DONE LT 2V INDICATIONS: fall with pain TECHNIQUE: AP pelvis with lateral view(s) of the left hip(s). COMPARISON: [facility], XR HIP W PEL IF DONE CANDIDO 3TO4V, 04/26/2024, 16:49. FINDINGS: Bones: No fractures or dislocations. Pelvic ring appears intact. No s uspicious bony lesions. Left hip arthroplasty. Hardware is intact without hardware fracture or periprosthetic lucency to suggest loosening. Alignment is stable. Degenerative changes are present within the right hip. Soft tissues: The visualized bowel gas pattern is normal. No suspicious soft tissue calcifications. IMPRESSION: No visualized acute fracture or dislocation. However, if clinical concern and/or pain persist, short interval imaging followup in 7-10 days is recommended, as occult injury cannot be definitively excluded. elbow x-ray: Radiologist's Impression: PROCEDURE: XR ELBOW LT MIN 3V INDICATIONS: fall with pain TECHNIQUE: 3 views of the elbow were acquired. COMPARISON: None. FINDINGS: Bones: No fractures or dislocations. No suspicious bony lesions. Soft tissues: No elbow joint effusion. No suspicious soft tissue calcifications. IMPRESSION: No visualized acute fracture or dislocation. However, if clinical concern and/or pain persist, short interval imaging followup in 7-10 days is recommended, as occult injury cannot be definitively excluded. MDM Narrative Medical decision making narrative: No fractures were noted on the x-rays. Patient was full range of motion of he r left shoulder. Patient reports tingling in both of her feet however there were no objective findings of any sensory deficits in her legs. Her lower back is not tender. Will discharge patient home with instructions for conservative measures to include Tylenol and or ibuprofen. SheWas oxycodone on her medication list that she can take as needed as well. This was a mechanical fall. Patient was given return precautions and follow-up instructions. She expressed understanding and agreement with plan. Discharge Plan Departure Patient Disposition: Home Clinical Impression: Acute pain of left hip, Left elbow pain, Acute pain of left shoulder Instructions: How To Perform RICE (Rest, Ice, Compress, Elevate), How to Prevent Falls Activity Restrictions/Additional Instructions: Continue to take all of your medications as directed. I anticipate that your symptoms will start to improve over the next couple days. Return to the emergency department for new symptoms. Prescriptions: No Action atorvastatin 40 mg tablet 40 mg PO BEDTIME latanoprost 0.005 % drops 1 drp EYE-BOTH BEDTIME oxycodone 5 mg Tablet 5 mg PO Q3H PRN (Reason: Pain, Moderate (4-6)) Qty: 20 0RF vit C,E,Zn,Of--eom-zeax 250-2.5-0.5 mg capsule 1 cap PO DAILY Referrals: Antonio Dueñas MD [Primary Care Provider] - Stand Alone Forms: Patient Portal/API/Survey
[2024-09-02 21:37] VITALS: BP 140/63; PULSE 55; RESP 16; O2SAT 96
== END 2024-09-02 21:54 | disposition home or self-care (01) ==
PROVIDERS: Emergency Provider Emergency Medicine; PCP Family Medicine
DX: M25.512 Pain in left shoulder (principal); M25.522 Pain in left elbow; M25.552 Pain in left hip; W07.XXXA Fall from chair, initial encounter; Y92.511 Restaurant or cafe as the place of occurrence of the external cause
CPT/HCPCS: 73080; 73502; 99283

== ENCOUNTER → 2024-09-13 14:05 | Outpatient (CLI) | payer MEDICARE, OTHER, SELFPAY ==
[2023-08-31 22:10] VITALS: BMI 27.4
--- NOTE | 2024-09-13 14:08 | DI.RAD.S_ITS ---
PROCEDURE: XR CHEST 2V INDICATIONS: Cough, unspecified TECHNIQUE: 2 views of the chest were acquired. COMPARISON: [facility], CR, XR CHEST 1V, 09/01/2023, 20:49. FINDINGS: Surgical changes and devices: None. Lungs and pleura: Lungs are clear. No pleural effusions or pneumothorax. Mediastinum: Mediastinal contours are normal. Heart size is enlarged. Bones and chest wall: No suspicious bony abnormalities. Soft tissues appear unremarkable. IMPRESSION: No acute pulmonary process. Dictated by: Chante Lebron M.D. on 09/13/2024 at 23:01 Approved by: Chante Lebron M.D. on 09/13/2024 at 23:01
== END ==
PROVIDERS: PCP Family Medicine; Referring Provider Family Medicine; Visit Provider Family Medicine
DX: R05.9 Cough, unspecified (principal)
CPT/HCPCS: 71046

== ENCOUNTER 2024-09-20 09:22 | Emergency (ER) | payer MEDICARE, OTHER, SELFPAY ==
[2023-08-31 22:10] VITALS: BMI 27.4
[2024-09-20] VITALS (14 sets, daily range): BP systolic 106–198; BP diastolic 75–86; PULSE 47–77; RESP 14–26; TEMP 36.3; O2SAT 87–98; BMI 28.3
--- NOTE | 2024-09-20 09:31 | ED.NEUROSD ---
HPI - Neuro Symptoms/Deficit General Chief Complaint: Neuro Symptoms/Deficit Stated Complaint: Might have had a mild TIA sent from PCP Time Seen by Provider: 09/20/24 09:30 History of Present Illness HPI Narrative: Patient 78-year-old female history of hyperlipidemia presenting today with right facial numbness. She reports that sometime last night between 530 and 10 30 she had some right facial numbness from the corner of her mouth to her eye. It lasted for about 15 minutes and then went away. She called her primary care provider office today who sent her to the ED. She had no point had any sort of weakness. She has some ongoing eye issues with glaucoma but does not notice any worsening vision loss or blurry vision. She has no speech difficulty or difficulty with gait. She has no chest pain or other symptoms. Related Data Home Medications Medication Instructions Recorded Confirmed vit 1 cap PO DAILY 05/10/21 09/01/23 C,E,zinc,Qd-ltsgd-9-lutein-zeaxanthin 250 mg-2.5 mg-0.5 mg capsule atorvastatin 40 mg tablet 40 mg PO BEDTIME 08/31/23 08/31/23 latanoprost 0.005 % eye drops 1 drp EYE-BOTH BEDTIME 08/31/23 08/31/23 Previous Rx's Medication Instructions Recorded oxycodone 5 mg tablet 5 mg PO Q3H PRN Pain, Moderate 09/03/23 (4-6) #20 tabs Allergies Allergy/AdvReac Type Severity Reaction Status Date / Time No Known Drug Allergies Allergy Verified 09/01/23 17:04 Patient History Medical History Fatigue Ocular migraine Sinusitis, chronic Macular degeneration Osteoarthritis Benign essential HTN Hyperlipidemia Spinal stenosis of lumbar region Chronic GERD Obstructive sleep apnea of adult (~2000) Social History marital status: details: to Yusuf household members: spouse lives independently: Yes caregiver/support person: No housing: house pets and animals: No Smoking Status: Never smoker alcohol intake: current Smoking Status: Never smoker alcohol intake frequency: holidays/special occasions only Exam Initial Vital Signs Initial Vital Signs: Vital Signs Pulse Rate 55 L 09/20/24 09:28 Respiratory Rate 20 09/20/24 09:28 Pulse Oximetry 87 L 09/20/24 09:28 GENERAL: Alert pleasant well-appearing 78-year-old and in no acute distress. HEENT: Head atraumatic,EOMI, pupils reactive, face symmetric, moist mucous membranes CARDIOVASCULAR: Regular rate and rhythm without murmurs, rubs or gallops. RESPIRATORY: Breath sounds equal bilaterally, no wheezes rales or rhonchi. ABDOMEN: Soft, nontender. Normoactive bowel sounds all 4 quadrants. No guarding or rebound. EXTREMITIES: Normal range of motion, no clubbing or edema. Neurovascularly intact NEUROLOGICAL: Alert and oriented x4.Normal gait and speech. Cranial nerves II through XII grossly intact. Good grnlkj-rp-hwer, good eotb-mt-afuj, strength equal bilaterally, no dysarthria or aphasia, sensation in tact to soft touch bilaterally, no visual changes, no facial droop SKIN: Warm, dry, no laceration, no petechiae, no rashes or lesions. Scores NIH Stroke Scale Level of Conciousness: Alert, keenly responsive Ask month/age: Answers both questions correctly. Open/close eyes, close hand: Performs both tasks correctly Best gaze horizontal: Normal Visual bartholomew: No visual loss Facial palsy: Normal symetrical movement Left arm drift: No drift for full 10 sec Right arm drift: No drift for full 10 sec Left leg drift: No drift for full 5 sec Right leg drift: No drift for full 5 sec Limb ataxia: Absent Sensory on face/arms/legs: Normal, no sensory loss Best language: No aphasia, normal Dysarthria: Normal Extinction or inattention: No abnormality Total NIH Stroke scale score: 0 Course Orders Ordered: ED Orders 09/20/24 09:32 Complete Blood Count AUTO DIFF Stat Comprehensive Metabolic Panel Stat PTT Partial Thromboplastin Christiano Stat Prothrombin Time INR Stat Troponin & CK Cardiac Panel Stat 09/20/24 09:38 CT head/brain wo con Stat 09/20/24 09:39 CT angio head and neck Stat EKG-12 Lead Stat 09/20/24 10:25 MR head/brain wo con Stat 09/20/24 11:00 Urine Drug Screen, Rapid Stat Vital Signs Vital signs: Vital Signs - 8 hr 09/20/24 10:01 09/20/24 10:02 09/20/24 10:02 Pulse Rate 59 L 55 L Respiratory Rate 26 H 18 Blood Pressure 173/86 H Pulse Oximetry 96 97 Oxygen Delivery Method Room Air 09/20/24 10:30 09/20/24 10:31 09/20/24 10:31 Pulse Rate 48 L 49 L Respiratory Rate 24 26 H Blood Pressure 172/75 H Pulse Oximetry 98 97 Oxygen Delivery Method 09/20/24 11:02 09/20/24 11:03 09/20/24 11:03 Pulse Rate 60 47 L Respiratory Rate 14 21 Blood Pressure 191/81 H Pulse Oximetry 87 L 98 Oxygen Delivery Method 09/20/24 11:30 09/20/24 11:31 09/20/24 11:31 Pulse Rate 50 L 57 L Respiratory Rate 22 21 Blood Pressure 106/79 Pulse Oximetry 96 96 Oxygen Delivery Method 09/20/24 12:00 09/20/24 12:30 09/20/24 12:31 Pulse Rate 58 L 71 Respiratory Rate 18 22 Blood Pressure 173/79 H Pulse Oximetry 96 97 Oxygen Delivery Method 09/20/24 12:31 Pulse Rate 77 Respiratory Rate 19 Blood Pressure Pulse Oximetry 96 Oxygen Delivery Method MDM - Neuro Symptoms/Deficit Lab Data 09/20/24 09:32 09/20/24 09:32 Labs: Lab Results 09/20/24 09/20/24 Range/Units 09:32 11:00 WBC 4.8 (4.5-11.0) X10^3/uL RBC 5.42 H (4.0-5.2) X10^6/uL Hgb 14.5 (12.0-16.0) g/dL Hct 44.1 (36-46) % MCV 81.4 (80-100) fL MCH 26.8 (26-34) PG MCHC 32.9 (30-36) % RDW 17.3 H (11.6-14.8) % Plt Count 153 (150-400) X10^3/uL Neut % (Auto) 53.7 (50-75) % Lymph % (Auto) 25.4 (25-40) % Bureau % (Auto) 10.3 (3-14) % Eos % (Auto) 9.4 H (2-4) % Baso % (Auto) 1.2 (0-2) % Neut # (Auto) 2600 (0651-6128) /uL Lymph # (Auto) 1200 (0947-2392) /uL Bureau # (Auto) 500 (0-900) /uL Eos # (Auto) 400 (0-450) /uL Baso # (Auto) 100 (0-100) /uL PT 11.2 (9.4-12.5) SECONDS INR 1.0 (0.9-1.3) APTT 33 (25.1-36.5) SECONDS Sodium 137 (137-145) mmol/L Potassium 4.3 (3.4-5.1) mmol/L Chloride 106 (98-107) mmol/L Carbon Dioxide 26 (22-32) mmol/L BUN 23 H (7-17) mg/dL Creatinine 1.09 H (0.52-1.04) mg/dL Estimated GFR 52 L (>60) mL/min BUN/Creatinine Ratio 21.1 (6-22) Glucose 89 (80-110) mg/dL Calcium 9.4 (8.4-10.2) mg/dL Total Bilirubin 2.0 H (0.2-1.3) mg/dL AST 54 H (14-36) IU/L ALT 34 (<35) IU/L Alkaline Phosphatase 102 (38-126) U/L Total Creatine Kinase 99 (30-135) U/L Troponin I < 0.012 (0.01-0.034) ng/mL Total Protein 7.7 (6.3-8.2) g/dL Albumin 4.0 (3.5-5.0) g/dL Globulin 3.7 (1.7-4.1) g/dL Albumin/Globulin Ratio 1.1 (1.0-2.8) U Opiates 300ng/mL cut Negative (Negative) Ur Oxycodone Screen Negative (Negative) Urine Methadone Screen Negative (Negative) Ur Barbiturates Screen Negative (Negative) U Tricyclic Antidepress Negative (Negative) Ur Phencyclidine Scrn Negative (Negative) Ur Amphetamines Screen Negative (Negative) U Methamphetamines Scrn Negative (Negative) Ur MDMA Scrn (Ecstasy) Negative (Negative) U Benzodiazepines Scrn Negative (Negative) Urine Cocaine Screen Negative (Negative) U Marijuana (THC) Screen Negative (Negative) Urine pH Normal (Normal) Urine Specific [place] Normal (Normal) Ur Creatinine Normal (Normal) Point of Care Testing Glucose POC [address] scan - head: Radiologist's Impression: PROCEDURE: CT HEAD/BRAIN WO CON INDICATIONS: right facial numbness x last night TECHNIQUE: Noncontrast 4.5 mm thick angled axial sections acquired from the foramen magnum to the vertex, with coronal and sagittal reformats. For radiation dose reduction, the following was used: automated exposure control, adjustment of mA and/or kV according to patient size. COMPARISON: [facility], CT, CT HEAD/BRAIN WO CON, 11/29/2021, 9:31. FINDINGS: Image quality: Diagnostic CSF spaces: Basal cisterns are patent. Lateral ventricles are symmetric. Volume: Vascular calcifications. Periventricular white matter disease is commonly seen with chronic microangiopathy. Volume loss is present. These findings are mild Brain: No intracranial hemorrhage. Chavez-white differentiation is grossly maintained. Craniofacial structures: Mild ethmoid mucosal thickening. IMPRESSION: No acute intracranial pathology. Consider MRI if there is high concern for infarct. Dictated by: Aime Wiggins M.D. on 09/20/2024 at 10:02 CTA - brain/neck: Radiologist's Impression: PROCEDURE: CT ANGIO HEAD AND NECK INDICATIONS: right facial numbness TECHNIQUE: After the administration of intravenous contrast, 1 mm thick sections acquired from the aortic arch through the [place]. 3-dimensional mjemwvp-iqoreggeo-clikslhvqz (MIP) and/or volume rendering reformats were acquired of the central intracranial vasculature and neck separately. For radiation dose reduction, the following was used: automated exposure control, adjustment of mA and/or kV according to patient size. COMPARISON: [facility], CT, CT HEAD/BRAIN WO CON, 09/20/2024, 9:45. [facility], US, US CAROTID DOPPLER BI, 07/23/2024, 14:34. FINDINGS: Image quality: Diagnostic. BRAIN: CSF spaces: Ventricles are normal in size and shape. Basal cisterns are patent. No extra-axial fluid collections. Brain: No significant abnormality of the brain can be seen. Skull and face: Calvarium and facial bones appear intact, without suspicious lesions. Orbits appear normal. Sinuses: Sinuses and mastoids are clear. HEAD CT ANGIOGRAPHY: Anterior circulation: Intracranial internal carotid arteries are normal in size and flow. The flow within the paired anterior cerebral arteries is normal and symmetric. The flow within the middle cerebral arteries is normal and symmetric. The anterior communicating artery is seen. No aneurysms are seen. Posterior circulation: Visualized portions of the vertebral arteries demonstrate normal caliber, and join to form a normal appearing basilar artery. Flow within the posterior cerebral arteries is normal and symmetric. No aneurysms are seen. NECK CT ANGIOGRAPHY: Carotid system: The great vessels demonstrate a conventional anatomy as they arise from the aortic arch. There is mild non flow limiting atherosclerotic disease involving the 3 trifurcation vessels. There is no flow limiting stenosis. The common carotid arteries demonstrate normal caliber and courses. There is a moderate to severe proximal left internal carotid artery stenosis secondary to a combination of hard and soft plaque. This correlates with ultrasound findings. Reference current sagittal image 60 of series 6. The proximal right internal carotid artery appears patent without more than a very mild stenosis. Stenosis is less than 50%. Posterior circulation: The origins of the vertebral arteries both appear widely patent. The more superior extracranial portions of both vertebral arteries also demonstrate normal courses and calibers. They join to form a normal appearing basilar artery. Soft tissues: Shotty bilateral cervical adenopathy, most notably in the bilateral submandibular lymph nodes Bones: No suspicious bony lesions. Visualized cervical spine appears normally aligned. IMPRESSION: No significant intracranial arterial abnormality is seen. 60-79% stenosis of the proximal left internal carotid artery, secondary to a combination of hard and soft plaque. Shotty adenopathy is likely reactive. Comment: Brain MRI may be helpful if suspect acute stroke. Any quantitative measurements of stenosis were performed using NASCET criteria. Dictated by: Jayson Oakes M.D. on 09/20/2024 at 10:07 MR brain: Radiologist's Impression: PROCEDURE: MR HEAD/BRAIN WO CON INDICATIONS: right facial numbness TECHNIQUE: Non-contrast axial T1 spin echo, axial T2 fast spin echo, sagittal and axial FLAIR, coronal T2 fast spin echo, axial gradient echo, axial diffusion and ADC through the brain. COMPARISON: [facility], CT, CT HEAD/BRAIN WO CON, 09/20/2024, 9:45. FINDINGS: Image quality: Excellent. CSF spaces: Ventricles appear symmetric in size and shape. Basal cisterns are patent. No extra-axial fluid collections. Brain: No intracranial bleeds or mass effects. There is cerebral volume loss for age. There are age-appropriate, bbej-xj-qsgjbjvo periventricular and deep white matter chronic small vessel ischemic changes. Brainstem appears normal. Diffusion-weighted images show no acute infarct. No chronic ischemic insults. Normal intravascular flow voids are present. Skull and face: Calvarial bone marrow is normal in signal. Orbits are normal. Sinuses: Patchy ethmoid disease. IMPRESSION: No acute intracranial process. Dictated by: Jayson Oakes M.D. on 09/20/2024 at 11:01 ECG Data Attestation: I personally reviewed and interpreted this ECG as follows: Prior ECG tracings: available for review Interpretation: Normal sinus rhythm rate 43 MD interval 196 QRS [address] changes no T-wave inversions similar to prior EKGs MDM Narrative Medical decision making narrative: MDM CC: Right facial numbness Complicating co-morbidities: Hyperlipidemia, hypertension Medical records reviewed: Previous admission for left hip fracture in 2019 Differential considered: TIA CVA intracranial hemorrhage Exam documented above, pertinent findings include: Patient awake and alert 78-year-old female maybe white facial numbness on the right side but no facial droop she has no weakness no other changes. Really she has not NIH of 0. Lab Test results independently reviewed as above. Pertinent findings: CBC 4.8 hemoglobin 14.5 hematocrit 44.1 platelets 153 CMP sodium 139 potassium 4.3 chloride 106 bicarb 26 BUN 23 creatinine 1.0 Bilirubin 2.0 AST 54 ALT 34 alk-phos 102 Troponin negative Independently reviewed EKG as above: Sinus rhythm no arrhythmia or ischemia Imaging studies independently reviewed: Head CT no intracranial hemorrhage or mass CT angio no large vessel occlusion but does show 60-79% of the left internal carotid stenosis which does not correlate with right facial numbness MRI no intracranial abnormality Treatments: none Re-evaluations: Patient's symptoms remain the same Discussion: Patient is 78-year-old female presenting today with right facial numbness. Last known well is actually on known between 5:30 p.m. and 10:30 p.m. last night. Symptoms lasted for 15 minutes. She has not a candidate for thrombolytics. She has no evidence of large vessel occlusion on exam or CT angio. She is noted to be mildly hypertensive here in the ED. MRIs negative for CVA. It is possible she had a minor TIA. However at this time recommend she follow up with primary care. Updated patient and on test results. All questions dressed. Concern that this may have been a TIA recommend that she take aspirin 325 daily questions have been addressed Discharge Plan Departure Patient Disposition: Home Clinical Impression: Facial numbness Instructions: DI for Transient Ischemic Attack Activity Restrictions/Additional Instructions: *You have been diagnosed with possible TIA/many stroke *What to do: At this time you had a full workup including a brain MRI and multiple CT scans along with blood work. Overall reassuring. Your pressure is slightly high please check this home and have it monitored with your primary care. You may require further evaluation *Continue to take medications as directed Aspirin 325 mg once a day *Follow up with your primary care provider in 2-3 days or call [phone] *Return to ER if you should have increasing numbness weakness difficulty speaking vision changes or any new, worsening or concerning symptoms Prescriptions: No Action atorvastatin 40 mg tablet 40 mg PO BEDTIME latanoprost 0.005 % drops 1 drp EYE-BOTH BEDTIME oxycodone 5 mg Tablet 5 mg PO Q3H PRN (Reason: Pain, Moderate (4-6)) Qty: 20 0RF vit C,E,Zn,Yl-beflm2-eww-zeax 250-2.5-0.5 mg capsule 1 cap PO DAILY Referrals: Antonio Dueñas MD [Primary Care Provider] - Stand Alone Forms: Patient Portal/API/Survey
--- NOTE | 2024-09-20 09:38 | DI.CT.S_ITS ---
PROCEDURE: CT HEAD/BRAIN WO CON INDICATIONS: right facial numbness x last night TECHNIQUE: Noncontrast 4.5 mm thick angled axial sections acquired from the foramen magnum to the vertex, with coronal and sagittal reformats. For radiation dose reduction, the following was used: automated exposure control, adjustment of mA and/or kV according to patient size. COMPARISON: [facility], CT, CT HEAD/BRAIN WO CON, 11/29/2021, 9:31. FINDINGS: Image quality: Diagnostic CSF spaces: Basal cisterns are patent. Lateral ventricles are symmetric. Volume: Vascular calcifications. Periventricular white matter disease is commonly seen with chronic microangiopathy. Volume loss is present. These findings are mild Brain: No intracranial hemorrhage. Chavez-white differentiation is grossly maintained. Craniofacial structures: Mild ethmoid mucosal thickening. IMPRESSION: No acute intracranial pathology. Consider MRI if there is high concern for infarct. Dictated by: Aime Wiggins M.D. on 09/20/2024 at 10:02 Approved by: Aime Wiggins M.D. on 09/20/2024 at 10:03
--- NOTE | 2024-09-20 09:39 | DI.CT.S_ITS ---
PROCEDURE: CT ANGIO HEAD AND NECK INDICATIONS: right facial numbness TECHNIQUE: After the administration of intravenous contrast, 1 mm thick sections acquired from the aortic arch through the [place]. 3-dimensional mufpuwo-ssweoigwe-ifflweammz (MIP) and/or volume rendering reformats were acquired of the central intracranial vasculature and neck separately. For radiation dose reduction, the following was used: automated exposure control, adjustment of mA and/or kV according to patient size. COMPARISON: [facility], CT, CT HEAD/BRAIN WO CON, 09/20/2024, 9:45. [facility], US, US CAROTID DOPPLER BI, 07/23/2024, 14:34. FINDINGS: Image quality: Diagnostic. BRAIN: CSF spaces: Ventricles are normal in size and shape. Basal cisterns are patent. No extra-axial fluid collections. Brain: No significant abnormality of the brain can be seen. Skull and face: Calvarium and facial bones appear intact, without suspicious lesions. Orbits appear normal. Sinuses: Sinuses and mastoids are clear. HEAD CT ANGIOGRAPHY: Anterior circulation: Intracranial internal carotid arteries are normal in size and flow. The flow within the paired anterior cerebral arteries is normal and symmetric. The flow within the middle cerebral arteries is normal and symmetric. The anterior communicating artery is seen. No aneurysms are seen. Posterior circulation: Visualized portions of the vertebral arteries demonstrate normal caliber, and join to form a normal appearing basilar artery. Flow within the posterior cerebral arteries is normal and symmetric. No aneurysms are seen. NECK CT ANGIOGRAPHY: Carotid system: The great vessels demonstrate a conventional anatomy as they arise from the aortic arch. There is mild non flow limiting atherosclerotic disease involving the 3 trifurcation vessels. There is no flow limiting stenosis. The common carotid arteries demonstrate normal caliber and courses. There is a moderate to severe proximal left internal carotid artery stenosis secondary to a combination of hard and soft plaque. This correlates with ultrasound findings. Reference current sagittal image 60 of series 6. The proximal right internal carotid artery appears patent without more than a very mild stenosis. Stenosis is less than 50%. Posterior circulation: The origins of the vertebral arteries both appear widely patent. The more superior extracranial portions of both vertebral arteries also demonstrate normal courses and calibers. They join to form a normal appearing basilar artery. Soft tissues: Shotty bilateral cervical adenopathy, most notably in the bilateral submandibular lymph nodes Bones: No suspicious bony lesions. Visualized cervical spine appears normally aligned. IMPRESSION: No significant intracranial arterial abnormality is seen. 60-79% stenosis of the proximal left internal carotid artery, secondary to a combination of hard and soft plaque. Shotty adenopathy is likely reactive. Comment: Brain MRI may be helpful if suspect acute stroke. Any quantitative measurements of stenosis were performed using NASCET criteria. Dictated by: Jayson Oakes M.D. on 09/20/2024 at 10:07 Approved by: Jayson Oakes M.D. on 09/20/2024 at 10:12
--- NOTE | 2024-09-20 09:39 | EKG_ITS ---
[address] [address] Test Date: 2024-09-20 Pat Name: Lanette Minaya Department: Room: Gender: Female Rn Resource Nurse: TRACY : [id number] Requested By: Order Number: [id number] Reading MD: Dimitris Carter Measurements Intervals [place] Rate: 43 P: 49 DE: 196 QRS: -2 QRSD: 94 T: 41 QT: 448 QTc: 378 Interpretive Statements Marked sinus bradycardia Minimal voltage criteria for LVH, may be normal variant ( R in aVL ) Electronically Signed On 09-21-2024 19:42:29 PST by Dimitris Carter
[2024-09-20 09:49] LABS: Add Manual Diff / Slide Review NO; Basophils Absolute Auto 100 /uL (0-100); Basophils Percent Auto 1.2 % (0-2); Eosinophils Absolute Auto 400 /uL (0-450); Eosinophils Percent Auto 9.4 % (2-4); Hematocrit 44.1 % (36-46); Hemoglobin 14.5 g/dL (12.0-16.0); Lymphocytes Absolute Auto 1200 /uL (1100-4500); Lymphocytes Percent Auto 25.4 % (25-40); Mean Corpuscular HGB Conc 32.9 % (30-36); Mean Corpuscular Hemoglobin 26.8 PG (26-34); Mean Corpuscular Volume 81.4 fL (80-100); Monocytes Absolute Auto 500 /uL (0-900); Monocytes Percent Auto 10.3 % (3-14); Neutrophils Absolute Auto 2600 /uL (1500-7000); Neutrophils Percent Auto 53.7 % (50-75); Platelet Count 153 X10^3/uL (150-400); Red Blood Cell Count 5.42 X10^6/uL (4.0-5.2); Red Cell Distribution Width 17.3 % (11.6-14.8); White Blood Cell Count 4.8 X10^3/uL (4.5-11.0)
[2024-09-20 09:50] LABS: Prothrombin Time 11.2 SECONDS (9.4-12.5)
--- NOTE | 2024-09-20 09:50 | PC.NURSE ---
Pt arrives to room, ambulatory. Steady gait noted. Pt is able to answer questions appropriately. Denies pain. Says that symptoms of numbness have resolved. Slight right sided facial droop noted. MD in room. [facility] completed. Pt off to CT scan via .
[2024-09-20 09:53] LABS: PTT Partial Thromboplastin Tim 33 SECONDS (25.1-36.5)
[2024-09-20 09:55] LABS: Alanine Aminotransferase 34 IU/L (<35); Albumin Globulin Ratio 1.1 (1.0-2.8); Alkaline Phosphatase 102 U/L (38-126); Aspartate Aminotransferase 54 IU/L (14-36); BUN Creatinine Ratio 21.1 (6-22); Blood Urea Nitrogen 23 mg/dL (7-17); Calcium 9.4 mg/dL (8.4-10.2); Carbon Dioxide 26 mmol/L (22-32); Chloride 106 mmol/L (98-107); Creatine Kinase 99 U/L (30-135); Estimated Glomerular Filt Rate 52 mL/min (>60); Globulin 3.7 g/dL (1.7-4.1); Glucose 89 mg/dL (80-110); HEMOLYSIS < 15 (0-50); Potassium 4.3 mmol/L (3.4-5.1); Sodium 137 mmol/L (137-145); Total Protein 7.7 g/dL (6.3-8.2)
[2024-09-20 10:06] LABS: Troponin I < 0.012 ng/mL (0.01-0.034)
--- NOTE | 2024-09-20 10:25 | DI.MRI.S_ITS ---
PROCEDURE: MR HEAD/BRAIN WO CON INDICATIONS: right facial numbness TECHNIQUE: Non-contrast axial T1 spin echo, axial T2 fast spin echo, sagittal and axial FLAIR, coronal T2 fast spin echo, axial gradient echo, axial diffusion and ADC through the brain. COMPARISON: [facility], CT, CT HEAD/BRAIN WO CON, 09/20/2024, 9:45. FINDINGS: Image quality: Excellent. CSF spaces: Ventricles appear symmetric in size and shape. Basal cisterns are patent. No extra-axial fluid collections. Brain: No intracranial bleeds or mass effects. There is cerebral volume loss for age. There are age-appropriate, dxuq-ct-ydsgwbkb periventricular and deep white matter chronic small vessel ischemic changes. Brainstem appears normal. Diffusion-weighted images show no acute infarct. No chronic ischemic insults. Normal intravascular flow voids are present. Skull and face: Calvarial bone marrow is normal in signal. Orbits are normal. Sinuses: Patchy ethmoid disease. IMPRESSION: No acute intracranial process. Dictated by: Jayson Oakes M.D. on 09/20/2024 at 11:01 Approved by: Jayson Oakes M.D. on 09/20/2024 at 11:03
--- NOTE | 2024-09-20 11:07 | PC.NURSE ---
Pt taken to BR using WC. Steady transfer noted. Pt voiding . Returned to room.
[2024-09-20 11:22] LABS: UR Morphine/Opiate cutoff 300 Negative (Negative); Ur Creatinine Normal (Normal); Ur Specific Gravity Normal (Normal); Urine Amphetamines Negative (Negative); Urine Barbiturates Negative (Negative); Urine Benzodiazepines Negative (Negative); Urine Cocaine Negative (Negative); Urine MDMA Negative (Negative); Urine Methadone Negative (Negative); Urine Methamphetamines Negative (Negative); Urine Oxycodone Negative (Negative); Urine Phencyclidine Negative (Negative); Urine Tetrahydrocannabinol Negative (Negative); Urine Tricyclic Antidepressant Negative (Negative); Urine pH Normal (Normal)
== END 2024-09-20 12:48 | disposition home or self-care (01) ==
PROVIDERS: Emergency Provider Emergency Medicine; PCP Family Medicine
DX: R20.0 Anesthesia of skin (principal); R00.1 Bradycardia, unspecified; R79.89 Other specified abnormal findings of blood chemistry
CPT/HCPCS: 36415; 70450; 70496; 70498; 70551; 80053; 80305; 82550; 82962; 84484; 85025; 85610; 85730; 93005; 99284; Q9967

== ENCOUNTER 2024-11-07 17:38 | Emergency (ER) | payer MEDICARE, OTHER, SELFPAY ==
[2023-08-31 22:10] VITALS: BMI 27.4
[2024-11-07] VITALS (12 sets, daily range): BP systolic 137–162; BP diastolic 63–72; PULSE 59–83; RESP 19–26; TEMP 36.4; O2SAT 94–96; BMI 28.0
--- NOTE | 2024-11-07 18:05 | ED_ITS ---
HPI - Neuro Symptoms/Deficit General Chief Complaint: Neuro Symptoms/Deficit Stated Complaint: SoB, Nausea, R Arm Pain Time Seen by Provider: 11/07/24 18:03 Source: patient Mode of arrival: Ambulatory History of Present Illness HPI Narrative: 78-year-old female with history hypertension, prediabetes presents by private vehicle for right-sided facial numbness. Patient states that she was on a hike with her . The hike went well but she began to develop severe generalized fatigue, right arm pain, and right facial numbness. This happened 1.5 hours ago. Of note, patient was seen 09/20/2024 for similar right sided facial numbness. Noncontrast head CT, CT angio head/neck, brain MRI were negative for signs of acute infarct. Patient states that she still feels like her face is numb, but not quite as badly as when symptoms started On Anticoagulants: No Related Data Home Medications Medication Instructions Recorded Confirmed vit 1 cap PO DAILY 05/10/21 09/01/23 C,E,zinc,Hk-uzkij-0-lutein-zeaxanthin 250 mg-2.5 mg-0.5 mg capsule atorvastatin 40 mg tablet 40 mg PO BEDTIME 08/31/23 08/31/23 latanoprost 0.005 % eye drops 1 drp EYE-BOTH BEDTIME 08/31/23 08/31/23 Previous Rx's Medication Instructions Recorded oxycodone 5 mg tablet 5 mg PO Q3H PRN Pain, Moderate 09/03/23 (4-6) #20 tabs Allergies Allergy/AdvReac Type Severity Reaction Status Date / Time No Known Drug Allergies Allergy Verified 09/01/23 17:04 Review of Systems Hematologic/Lymphatic On Anticoagulants: No Patient History Medical History Fatigue Ocular migraine Sinusitis, chronic Macular degeneration Osteoarthritis Benign essential HTN Hyperlipidemia Spinal stenosis of lumbar region Chronic GERD Obstructive sleep apnea of adult (~2000) Social History marital status: details: oliver Goldberg household members: spouse lives independently: Yes caregiver/support person: No housing: house pets and animals: No Smoking Status: Never smoker alcohol intake: current Smoking Status: Never smoker alcohol intake frequency: holidays/special occasions only Alcohol type: wine Exam Initial Vital Signs Initial Vital Signs: Vital Signs Temperature 97.5 F L 11/07/24 17:45 Pulse Rate 66 11/07/24 17:45 Respiratory Rate 19 11/07/24 17:45 Blood Pressure 137/63 11/07/24 17:45 Pulse Oximetry 95 11/07/24 17:45 Oxygen Delivery Method Room Air 11/07/24 17:45 Const: Awake, alert, no acute distress, nontoxic appearing Cardiac: regular rate, regular rhythm RESP: unlabored, clear bilaterally, no wheezing Skin: Warm, Dry, intact, no rashes Neuro: AO x3, CN II-XII grossly intact, no facial droop, sensation intact and equal bilaterally, no pronator drift, no ataxia Course Orders Ordered: ED Orders 11/07/24 18:03 CT angio head and neck Stat 11/07/24 18:04 CT head/brain wo con Stat EKG-12 Lead Stat 11/07/24 18:07 BNP [NT-proBNP (BNP-Adult 18+)] Stat CBC Auto Diff [Complete Blood Count AUTO DIFF] Stat CMP [Comprehensive Metabolic Panel] Stat Lactate (Lactic Acid) Stat MAG [Magnesium] Stat PT [Prothrombin Time INR] Stat Troponin & CK Cardiac Panel Stat 11/07/24 18:35 Respiratory Panel (Film Array) Stat 11/07/24 19:00 UA Complete [Urinalysis and Microscopic] Stat Vital Signs Vital signs: Vital Signs - 8 hr 11/07/24 17:45 11/07/24 18:06 11/07/24 18:07 Temperature 97.5 F L Pulse Rate 66 60 60 Respiratory Rate 19 23 24 Blood Pressure 137/63 Pulse Oximetry 95 94 94 Oxygen Delivery Method Room Air 11/07/24 18:07 11/07/24 18:20 11/07/24 18:20 Temperature Pulse Rate 63 Respiratory Rate 20 Blood Pressure 145/67 H 140/65 Pulse Oximetry 94 Oxygen Delivery Method 11/07/24 18:30 11/07/24 19:00 11/07/24 19:30 Temperature Pulse Rate 61 83 66 Respiratory Rate 24 Blood Pressure Pulse Oximetry 95 Oxygen Delivery Method 11/07/24 20:00 11/07/24 20:30 11/07/24 20:37 Temperature Pulse Rate 63 65 62 Respiratory Rate 20 22 20 Blood Pressure Pulse Oximetry 95 94 Oxygen Delivery Method 11/07/24 20:37 11/07/24 21:00 11/07/24 21:30 Temperature Pulse Rate 59 L 60 Respiratory Rate 22 26 H Blood Pressure 162/72 H Pulse Oximetry 96 96 Oxygen Delivery Method Room Air MDM - Neuro Symptoms/Deficit Lab Data 11/07/24 18:07 11/07/24 18:07 Labs: Lab Results 11/07/24 11/07/24 11/07/24 Range/Units 18:07 18:35 19:00 WBC 7.5 (4.5-11.0) X10^3/uL RBC 5.36 H (4.0-5.2) X10^6/uL Hgb 14.3 (12.0-16.0) g/dL Hct 44.0 (36-46) % MCV 81.9 (80-100) fL MCH 26.7 (26-34) PG MCHC 32.6 (30-36) % RDW 16.4 H (11.6-14.8) % Plt Count 156 (150-400) X10^3/uL Neut % (Auto) 73.9 (50-75) % Lymph % (Auto) 13.1 L (25-40) % Turner % (Auto) 7.9 (3-14) % Eos % (Auto) 4.6 H (2-4) % Baso % (Auto) 0.5 (0-2) % Neut # (Auto) 5500 (0456-6633) /uL Lymph # (Auto) 1000 L (6236-8268) /uL Turner # (Auto) 600 (0-900) /uL Eos # (Auto) 300 (0-450) /uL Baso # (Auto) 0 (0-100) /uL PT 10.8 (9.4-12.5) SECONDS INR 1.0 (0.9-1.3) Sodium 138 (137-145) mmol/L Potassium 4.9 (3.4-5.1) mmol/L Chloride 105 (98-107) mmol/L Carbon Dioxide 24 (22-32) mmol/L BUN 31 H (7-17) mg/dL Creatinine 1.39 H (0.52-1.04) mg/dL Estimated GFR 39 L (>60) mL/min BUN/Creatinine Ratio 22.3 H (6-22) Glucose 99 (80-110) mg/dL Lactate 1.0 (0.7-2.1) mmol/L Calcium 9.4 (8.4-10.2) mg/dL Magnesium 1.9 (1.6-2.3) mg/dL Total Bilirubin 1.7 H (0.2-1.3) mg/dL AST 71 H (14-36) IU/L ALT 55 H (<35) IU/L Alkaline Phosphatase 119 (38-126) U/L Total Creatine Kinase 142 H (30-135) U/L Troponin I < 0.012 (0.01-0.034) ng/mL NT-Pro-B Natriuret Pep 250 (<450) pg/mL Total Protein 7.9 (6.3-8.2) g/dL Albumin 4.1 (3.5-5.0) g/dL Globulin 3.8 (1.7-4.1) g/dL Albumin/Globulin Ratio 1.1 (1.0-2.8) Urine Color Yellow Urine Appearance Clear Urine pH 6.5 (4.5-8.0) Ur Specific [place] 1.010 (1.000-1.035) Urine Protein Negative (Negative) Urine Glucose (UA) Negative (Negative) g/dL Urine Ketones Negative (NEGATIVE) Urine Occult Blood 1+ H (Negative) Urine Nitrate Negative (Negative) Urine Bilirubin Negative (NEGATIVE) Urine Urobilinogen 0.2 (0.2) E.U./dL Ur Leukocyte Esterase Negative (NEGATIVE) Urine RBC 0-1/hpf (0-5/HPF) Urine WBC None seen (0-5/HPF) Ur Squamous Epith Cells 0-1 /hpf (0-5/HPF) Urine Bacteria Occasional (0-1) (None) Ur Culture Indicated? Cult not indicated Vol Urine Centrifuged 10ml (spun) Chlamy pneumoniae PCR Not detected (Not Detect) Adenovirus (PCR) Not detected (Not Detect) B. pertussis DNA (PCR) Not detected (Not Detect) B.parapertussis DNA PCR Not detected (Not Detecte) Coronavirus OC43 (PCR) Not detected (Not Detect) Coronavirus HKU1 (PCR) Not detected (Not Detect) Coronavirus 229E (PCR) Not detected (Not Detect) SARS-CoV-2 (PCR) Not detected (Not Detecte) Coronavirus NL63 (PCR) Not detected (Not Detect) Human Metapneumovir PCR Not detected (Not Detect) Influenza Type A (PCR) Not detected (Not Detect) Influenza Type B (PCR) Not detected (Not Detect) M. pneumoniae (PCR) Not detected (Not Detect) Parainfluenza 1 (PCR) Not detected (Not Detect) Parainfluenza 2 (PCR) Not detected (Not Detect) Parainfluenza 3 (PCR) Not detected (Not Detect) Parainfluenza 4 (PCR) Not detected (Not Detect) RSV (PCR) Not detected (Not Detect) Entero/Rhino (PCR) Not detected (Not Detect) Imaging Data CTA - brain/neck: Radiologist's Impression: PROCEDURE: CT ANGIO HEAD AND NECK INDICATIONS: R FACIAL NUMBNESS X 1.5HRS TECHNIQUE: After the administration of intravenous contrast, 1 mm thick sections acquired from the aortic arch through the [place] of [place]. MIP reformats of the arterial vasculature were utilized. For radiation dose reduction, the following was used: automated exposure control, adjustment of mA and/or kV according to patient size. COMPARISON: [facility], CT, CT ANGIO HEAD AND NECK, 09/20/2024, 9:45. FINDINGS: Cerebral CT Angiogram: Internal carotid arteries: No acute findings. Intracranial ICA are patent with no significant stenosis. No occlusion. No aneurysm. Anterior cerebral arteries: Unremarkable. No significant stenosis. No occlusion. No aneurysm. Middle cerebral arteries: Unremarkable. No significant stenosis. No occlusion. No aneurysm. 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 The P2 segment is supplied by a widely patent posterior communicating artery. Remainder of the distal vasculature unremarkable. Basilar artery: Unremarkable. No significant stenosis. No occlusion. No aneurysm. Vertebral arteries: Unremarkable as visualized. Dural venous sinuses: Unremarkable given phase of enhancement. Other: Arterial phase brain parenchyma is unremarkable. Neck CT Angiogram: Internal carotid arteries: Calcified atherosclerotic plaque in the proximal ICA results in 50% stenosis on the left and no significant stenosis in the right utilizing NASCET criteria. Common carotid arteries: Unremarkable. No significant stenosis. No dissection or occlusion. External carotid arteries: Unremarkable. No occlusion. Vertebral arteries: Unremarkable. No significant stenosis. No dissection or occlusion. Other: Biapical pulmonary scarring and pleural plaquing on the right. Bilateral level 1 B submandibular adenopathy measures up to 1.3 x 1.2 cm Aortic Arch and Mediastinum: Partially visualized aortic arch unremarkable without evidence of aneurysm. Origins of the great vessels unremarkable. IMPRESSION: No evidence of intracranial large vessel occlusion, aneurysm vascular malformation. Atherosclerotic 50% left ICA stenosis in the neck Incidental level 1 B submandibular adenopathy Approved by: Chris Knapp M.D. on 11/07/2024 at 18:02 CT scan - head: Radiologist's Impression: PROCEDURE: CT HEAD/BRAIN WO CON INDICATIONS: R FACIAL NUMBNESS X 1.5HRS TECHNIQUE: Noncontrast 4.5 mm thick angled axial sections acquired from the foramen magnum to the vertex, with coronal and sagittal reformats. For radiation dose reduction, the following was used: automated exposure control, adjustment of mA and/or kV according to patient size. COMPARISON: [facility], CT, CT HEAD/BRAIN WO CON, 09/20/2024, 9:45. FINDINGS: Image quality: Diagnostic. CSF spaces: Basal cisterns are patent. No extra-axial fluid collections. Ventricles are normal in size and shape. Brain: No midline shift. No intracranial masses or hemorrhage. Chavez-white matter interface is normal. Skull and face: Calvarium and visualized facial bones are intact, without suspicious lesions. Sinuses: Visualized sinuses and mastoids are clear. IMPRESSION: No acute intracranial pathology. Approved by: Chris Knapp M.D. on 11/07/2024 at 17:49 MDM Narrative Medical decision making narrative: Well-appearing female with sudden onset global fatigue and sensation of facial numbness. Also at that time reported right arm pain, but states that her arm pain has resolved. On exam patient has equal sensation of face and extremities despite saying she still feels like her face is numb. It appears as though something similar happened in September of 2024 with negative [address]s and brain MRI. Patient's description of the event and otherwise normal exam seems less likely to be focal ischemic event. Laboratory work reviewed, WBC count 7.5, hemoglobin 14.3, platelet count 156, sodium 138, potassium 4.9, creatinine 1.39 (previous 1.09), T bili 1.7, AST 71, ALT 55, troponin undetectable. Overall fairly stable compared to prior. Patient states that her symptoms have resolved while being in the emergency department. She was ambulatory without difficulty, requesting Angel crackers, and has had no return or worsening of symptoms. Patient informed of all lab and imaging findings. I have less suspicion for stroke at this time. Patient has upcoming echocardiogram scheduled through PCP. Patient counseled to return for any new or worsening symptoms. Otherwise recommended close PCP follow up. Discharge Plan Departure Patient Disposition: Home Clinical Impression: Fatigue, Arm pain, right Instructions: DI for Fatigue Activity Restrictions/Additional Instructions: Your laboratory work, CT imaging, and labs today did not show any sign of stroke, heart attack, or other abnormal findings. Make sure that you stay hydrated and drink plenty of fluids. Continue all of your medications as previously prescribed by your primary care doctor. Keep your echocardiogram appointment on the 6th as scheduled. If you notice new or worsening symptoms please return immediately to the emergency department for repeat evaluation. Prescriptions: No Action atorvastatin 40 mg tablet 40 mg PO BEDTIME latanoprost 0.005 % drops 1 drp EYE-BOTH BEDTIME oxycodone 5 mg Tablet 5 mg PO Q3H PRN (Reason: Pain, Moderate (4-6)) Qty: 20 0RF vit C,E,Zn,Yy-ypywk8-wkc-zeax 250-2.5-0.5 mg capsule 1 cap PO DAILY Referrals: Antonio Dueñas MD [Primary Care Provider] - Stand Alone Forms: Patient Portal/API/Survey
--- NOTE | 2024-11-07 18:08 | EKG_ITS ---
[address] [address] Test Date: 2024-11-07 Pat Name: Lanette Minaya Department: Room: Gender: Female Account Associate: TOM : 1945 Requested By: Order Number: [id number] Reading MD: Dimitris Carter Measurements Intervals [place] Rate: 54 P: 50 VA: 180 QRS: 1 QRSD: 90 T: 26 QT: 418 QTc: 396 Interpretive Statements Sinus bradycardia Electronically Signed On 11-10-2024 23:43:49 PST by Dimitris Carter
[2024-11-07 18:21] LABS: Prothrombin Time 10.8 SECONDS (9.4-12.5)
[2024-11-07 18:25] LABS: Alanine Aminotransferase 55 IU/L (<35); Albumin 4.1 g/dL (3.5-5.0); Albumin Globulin Ratio 1.1 (1.0-2.8); Alkaline Phosphatase 119 U/L (38-126); Aspartate Aminotransferase 71 IU/L (14-36); BUN Creatinine Ratio 22.3 (6-22); Bilirubin Total 1.7 mg/dL (0.2-1.3); Blood Urea Nitrogen 31 mg/dL (7-17); Calcium 9.4 mg/dL (8.4-10.2); Carbon Dioxide 24 mmol/L (22-32); Chloride 105 mmol/L (98-107); Estimated Glomerular Filt Rate 39 mL/min (>60); Globulin 3.8 g/dL (1.7-4.1); Glucose 99 mg/dL (80-110); HEMOLYSIS < 15 (0-50); Potassium 4.9 mmol/L (3.4-5.1); Sodium 138 mmol/L (137-145); Total Protein 7.9 g/dL (6.3-8.2)
[2024-11-07 18:26] LABS: Add Manual Diff / Slide Review NO; Basophils Absolute Auto 0 /uL (0-100); Basophils Percent Auto 0.5 % (0-2); Creatine Kinase 142 U/L (30-135); Eosinophils Absolute Auto 300 /uL (0-450); Eosinophils Percent Auto 4.6 % (2-4); Hemoglobin 14.3 g/dL (12.0-16.0); Lymphocytes Absolute Auto 1000 /uL (1100-4500); Lymphocytes Percent Auto 13.1 % (25-40); Magnesium 1.9 mg/dL (1.6-2.3); Mean Corpuscular HGB Conc 32.6 % (30-36); Mean Corpuscular Hemoglobin 26.7 PG (26-34); Mean Corpuscular Volume 81.9 fL (80-100); Monocytes Absolute Auto 600 /uL (0-900); Monocytes Percent Auto 7.9 % (3-14); Neutrophils Absolute Auto 5500 /uL (1500-7000); Neutrophils Percent Auto 73.9 % (50-75); Platelet Count 156 X10^3/uL (150-400); Red Blood Cell Count 5.36 X10^6/uL (4.0-5.2); Red Cell Distribution Width 16.4 % (11.6-14.8); White Blood Cell Count 7.5 X10^3/uL (4.5-11.0)
--- NOTE | 2024-11-07 18:31 | PC.NURSE ---
Pt states that she was taking a 2 mile hike this afternoon around 1400 and began to feel weak and felt some numbness on the right side of her face. Pt states that she also had some right arm pain, nausea and SOB of at the same time. Pt a&Ox4. Able to transfer from [facility] to [place] with 1 persin assist. Denies cp, SOB, nausea or numbness/tingling at this time.
[2024-11-07 18:37] LABS: NT-proBNP (BNP-Adult 18+) 250 pg/mL (<450); Troponin I < 0.012 ng/mL (0.01-0.034)
[2024-11-07 19:13] LABS: Appearance Urine UA CLEAR; Bilirubin Urine UA NEGATIVE (NEGATIVE); Color Urine UA YELLOW; Glucose Urine UA NEGATIVE (Negative); Ketones Urine UA NEGATIVE (NEGATIVE); Leukocyte Esterase Urine UA NEGATIVE (NEGATIVE); Nitrite Urine UA NEGATIVE (Negative); Occult Blood Urine UA 1+ (Negative); Protein Urine UA NEGATIVE (Negative); Urobilinogen Urine UA 0.2 E.U./dL (0.2); pH Urine UA 6.5 (4.5-8.0)
[2024-11-07 19:20] LABS: Bacteria Urine Occasional (0-1); Culture Indicated Urine Cult Not Indicated; RBC Urine 0-1/HPF (0-5/HPF); Squamous Epithelial Cell Urine 0-1 /HPF (0-5/HPF); Urine Volume 10mL (spun); WBC Urine None Seen (0-5/HPF)
[2024-11-07 19:27] LABS: Adenovirus Not Detected (Not Detect); B. parapertussis Not Detected (Not Detecte); Bordetella pertussis Not Detected (Not Detect); Chlamydophila pneumoniae Not Detected (Not Detect); Coronavirus 229E Not Detected (Not Detect); Coronavirus HKU1 Not Detected (Not Detect); Coronavirus NL 63 Not Detected (Not Detect); Coronavirus OC43 Not Detected (Not Detect); Human Metapneumovirus Not Detected (Not Detect); Human Rhinovirus/Enterovirus Not Detected (Not Detect); Influenza A Not Detected (Not Detect); Influenza B Not Detected (Not Detect); Mycoplasma pneumoniae Not Detected (Not Detect); Parainfluenza Virus 1 Not Detected (Not Detect); Parainfluenza Virus 2 Not Detected (Not Detect); Parainfluenza Virus 3 Not Detected (Not Detect); Parainfluenza Virus 4 Not Detected (Not Detect); Respiratory Syncytial Virus Not Detected (Not Detect); SARS- CoV-2 Not Detected (Not Detecte)
== END 2024-11-07 21:58 | disposition home or self-care (01) ==
PROVIDERS: Emergency Provider Emergency Medicine; PCP Family Medicine
DX: M79.601 Pain in right arm (principal); R53.83 Other fatigue; I10 Essential (primary) hypertension; E78.5 Hyperlipidemia, unspecified; R00.1 Bradycardia, unspecified
CPT/HCPCS: 36415; 70450; 70496; 70498; 80053; 81001; 82550; 83605; 83735; 83880; 84484; 85025; 85610; 87633; 93005; 99284; Q9967

== ENCOUNTER → 2024-11-11 06:45 | Outpatient (CLI) | payer MEDICARE, OTHER, SELFPAY ==
[2023-08-31 22:10] VITALS: BMI 27.4
--- NOTE | 2024-11-11 06:46 | DI.ECHO.S_ITS ---
[facility] : : [address] : : [place] : : [id number] : : Phone: [phone] Echocardiogram Report + + :Name: KELSEY WOLF Study Date: 11/11/2024 Height: 69.5 in: :[facility] ReadingLocation: Weight: 195 lb : : Gender: Female BSA: 2.1 m2 : :: 1945 Age: 78 yrs BP: 155/75 mmHg: :Reason For Study: CARDIOMEGALY : :Ordering Physician: MYRIAM, : :YOUNG Aguirre Performed By: Verna Alfaro : :Referring: HUDSON DELACRUZ : + + Interpretation Summary Normal chamber sizes. Normal LV size and function. LVEF is 60-65% Normal RV size and function. No more than mild valvular pathology is noted. Other findings as below. When compared to TTE dated 07/23/24, no significant changes are observed. Procedure: A two-dimensional transthoracic echocardiogram with color flow and Doppler was performed. The study quality was technically adequate. Comparison is made with the echocardiogram of 07/23/2024. The patient was in sinus rhythm with heart rates between 59-71 bpm during the exam. Left Ventricle: The left ventricle is normal in size and wall thickness. The ejection fraction is estimated to be 60-65%. Left ventricular wall motion is normal. Diastolic parameters suggest probable normal left ventricular diastolic function and normal filling pressures. Right Ventricle: The right ventricle is normal size. The right ventricular systolic function is normal. Atria: The left atrial size is normal. Right atrial size is normal. There is no Doppler evidence for an interatrial shunt. Mitral Valve: The mitral valve leaflets appear borderline thickened, but open well. There is mild mitral annular calcification. There is mild mitral regurgitation. Aortic Valve: The aortic valve is trileaflet. The aortic valve is mildly calcified. There is no aortic valve stenosis. No aortic regurgitation is present. Tricuspid Valve: The tricuspid valve is normal. There is trace tricuspid regurgitation. Pulmonary artery pressures cannot be estimated because of the lack of a measurable TR jet velocity. Pulmonic Valve: The pulmonic valve leaflets are thin and pliable; valve motion is normal. There is mild pulmonic regurgitation. Great Vessels: The aortic root is normal size. The ascending aorta could not be visualized. The IVC is of normal diameter and collapses greater than 50% with a sniff. This suggests a low right atrial pressure of 3 mm Hg. Pericardium/ Pleura There is no pericardial effusion. There is no pleural effusion. MMode/2D Measurements & Calculations LVIDd: 4.7 cm LVOT diam: 2.0 cm LVIDs: 3.0 cm Ao root diam: 3.2 cm FS: 36.5 % EPSS: 0.74 cm IVSd: 0.93 cm LVPWd: 0.82 cm LV seymour. diameter/BSA (cm/m^2): 2.3 LV sys. diameter/BSA (cm/m^2): 1.5 LA A2 area: 21.0 cm2 RA long axis: 4.6 cm LA A4 area: 17.9 cm2 RA area: 16.5 cm2 LA length (vol): 5.1 cm RA vol: 49.9 ml LA vol: 63.0 ml RA : 24.3 ml/m2 LA vol index: 30.6 ml/m2 IVC diam: 1.5 cm RVD1 (basal): 4.0 cm RVD2 (mid): 3.8 cm TAPSE: 2.8 cm Doppler Measurements & Calculations Ao V2 max: 184.0 cm/sec LVOT Max Servando: 118.7 cm/sec Ao V2 mean: 125.7 cm/sec LV V1 max P.6 mmHg Ao max P.5 mmHg LV V1 VTI: 30.8 cm Ao mean P.1 mmHg ALLI(I,D): 2.2 cm2 Ao V2 VTI: 43.5 cm ALLI(V,D): 2.0 cm2 sev ratio: 0.71 ALLI indexed to BSA (cm^2/m^2): 1.1 MV E max servando: 73.3 cm/sec PA V2 max: 103.3 cm/sec MV A max servando: 83.9 cm/sec PA V2 mean: 77.1 cm/sec MV E/A: 0.87 PA mean P.5 mmHg Med Peak E' Servando: 11.0 cm/sec PA pr(Accel): 15.6 mmHg E/E' med: 6.7 Lat Peak E' Servando: 9.1 cm/sec E/E' lat: 8.0 E/e' average: 7.3 MV dec time: 0.31 sec SV(OT): 96.0 ml Reading Physician:01:42 PM
== END ==
PROVIDERS: PCP Family Medicine; Referring Provider Family Medicine; Visit Provider Family Medicine
DX: I34.81 Nonrheumatic mitral (valve) annulus calcification (principal); I34.0 Nonrheumatic mitral (valve) insufficiency; I51.7 Cardiomegaly; I37.1 Nonrheumatic pulmonary valve insufficiency
CPT/HCPCS: 93306

== ENCOUNTER → 2025-08-16 15:15 | Outpatient (CLI) | payer MEDICARE, OTHER, SELFPAY ==
[2023-08-31 22:10] VITALS: BMI 27.4
--- NOTE | 2025-08-16 15:17 | DI.RAD.S_ITS ---
PROCEDURE: XR CHEST 2V
== END ==
PROVIDERS: PCP Family Medicine; Referring Provider Internal Medicine; Visit Provider Internal Medicine
DX: I51.7 Cardiomegaly (principal); R05.9 Cough, unspecified
CPT/HCPCS: 71046

== ENCOUNTER → 2025-09-16 15:12 | Outpatient (CLI) | payer MEDICARE, OTHER, SELFPAY ==
[2023-08-31 22:10] VITALS: BMI 27.4
--- NOTE | 2025-09-16 15:13 | DI.MG.S_ITS ---
MM screening mammo BI: 09/16/2025. BI-RADS: 1 CLINICAL: 79-year old female for bilateral screening mammogram. Tyrer-Cuzick lifetime risk of 2.9%. No personal or first-degree family history of breast cancer. PRIOR EXAMS: 07/22/2018. MAMMOGRAPHY TECHNIQUE: 2D and 3D (tomosynthesis) digital mammographic views obtained, with additional images as needed for full coverage. Current study was also evaluated with a Computer Aided Detection (CAD) system. DENSITY C. The breasts are heterogeneously dense, which may obscure small masses. MAMMOGRAPHY FINDINGS Bilateral: No suspicious mass, asymmetry, microcalcification, or other abnormality seen. IMPRESSION: * No evidence of malignancy. RECOMMENDATIONS Bilateral * Annual screening mammography. OVERALL ASSESSMENT CATEGORY BI-RADS-1: Negative. The [employer] recommends annual screening mammography beginning at age 40 for women with average risk of breast cancer. ELECTRONICALLY SIGNED: Eliud Mcduffie M.D. on 09/17/2025 at 02:08:25 PM PT Interpreting Station ID: [id number]
== END ==
LOC: MAMMO 15:13
PROVIDERS: PCP Family Medicine; Referring Provider Internal Medicine; Visit Provider Internal Medicine
DX: Z12.31 Encounter for screening mammogram for malignant neoplasm of breast (principal); R92.333 Mammographic heterogeneous density, bilateral breasts
CPT/HCPCS: 77063; 77067